=== PATIENT | female | born 1990 | race Two or more races ===

== ENCOUNTER 2021-08-03 05:02 | Emergency (ER) | payer MEDICAID, OTHER ==
[~2021-08-03] VITALS: Ht 167.6 cm; Wt 70.8 kg
[2021-08-03] MEDS ORDERED: HALOPERIDOL LACTATE 5 MG/ML INJ VIAL ONE (05:16)
[2021-08-03] MEDS ORDERED: diphenhdrAMINE HCL 50 MG/1 ML VL ONE (05:16)
[2021-08-03] MEDS ORDERED: LORazepam 2MG/ML-1ML VIAL ONE (05:17)
[2021-08-03] MEDS: LORazepam 2MG/ML-1ML VIAL IM ONE ×2 (05:20→06:03)
[2021-08-03] MEDS ORDERED: HALOPERIDOL LACTATE 5 MG/ML INJ VIAL IM ONE (06:00)
[2021-08-03] MEDS ORDERED: diphenhdrAMINE HCL 50 MG/1 ML VL IM ONE (06:00)
[2021-08-03] MEDS ORDERED: MIDAZOLAM HCL 2MG/2ML 2ml VIAL (1mg/ml) IV ONE (06:15)
[2021-08-03] MEDS ORDERED: LORazepam 2MG/ML-1ML VIAL IV ONE (06:15)
[2021-08-03 08:22] LABS: Basophils # (auto) 0.1 10 ^3/uL (0-0.2); Eosinophils # (auto) 0.1 10 ^3/uL (0-0.8); Hematocrit 31.9 % (36.0-46.0); Hemoglobin 10.2 g/dL (12.2-16.2); Lymphocytes # (auto) 2.2 10 ^3/uL (0.4-5.4); Lymphocytes % (auto) 29.1 % (10.0-50.0); Mean Corpuscular Hemoglobin 26.5 pg (28.0-32.0); Mean Corpuscular Hgb Conc. 31.8 g/dL (32.0-36.0); Mean Corpuscular Volume 83.2 fL (80.0-100.0); Monocytes # (auto) 0.4 10 ^3/uL (0-1.3); Monocytes % (auto) 5.7 % (0.0-12.0); Neutrophils # (auto) 4.7 10 ^3/uL (1.6-8.6); Neutrophils % (auto) 62.2 % (37.0-80.0); Red Blood Cells 3.84 10^6/uL (4.0-5.20); White Blood Cell 7.5 10^3/uL (4.4-10.8)
[2021-08-03 08:28] LABS: Albumin 3.7 g/dL (3.4-5.0); BUN/Creatinine Ratio 9.3; Calcium 8.7 mg/dL (8.5-10.1); Potassium 3.2 mmol/L (3.5-5.1)
[2021-08-03 08:30] LABS: Bilirubin, Total 0.5 mg/dL (0.2-1.0)
[2021-08-03] MEDS ORDERED: POTASSIUM EFFERVESENT TAB 25 MEQ PO ONE (14:45)
[2021-08-04 02:57] VITALS: BP 106/64
== END 2021-08-04 02:41 | disposition home or self-care (01) ==
LOC: ER 05:02
DX: F23 Brief psychotic disorder (principal)
CPT/HCPCS: 36415; 80053; 85025; 96372; 96374; 99285; J1200; J1630; J2060

== ENCOUNTER 2022-06-04 22:48 | Emergency (ER) | payer MEDICAID ==
[~2022-06-04] VITALS: Ht 165.1 cm; Wt 63.0 kg
[2022-06-04 23:55] LABS: Amphetamine Screen, Urine POSITIVE (NEGATIVE); Barbiturate Scree,Urine NEGATIVE (NEGATIVE); Cannabinoid Screen, Urine POSITIVE (NEGATIVE); Cocaine Screen, Urine NEGATIVE (NEGATIVE); Opiate Scree,Urine NEGATIVE (NEGATIVE); Phencyclidine Screen, Urine POSITIVE (NEGATIVE)
[2022-06-05 00:02] LABS: Basophils # (auto) 0 10 ^3/uL (0-0.2); Basophils % (auto) 0.6 % (0.0-2.0); Eosinophils # (auto) 0.1 10 ^3/uL (0-0.8); Eosinophils % (auto) 1.6 % (0.0-7.0); Hematocrit 39.1 % (36.0-46.0); Hemoglobin 12.4 g/dL (12.2-16.2); Lymphocytes % (auto) 46.7 % (10.0-50.0); Mean Corpuscular Hemoglobin 27.9 pg (28.0-32.0); Mean Corpuscular Hgb Conc. 31.8 g/dL (32.0-36.0); Monocytes # (auto) 0.5 10 ^3/uL (0-1.3); Neutrophils # (auto) 2.8 10 ^3/uL (1.6-8.6); Neutrophils % (auto) 43.1 % (37.0-80.0); Nucleated Red Blood Cells % 0.1 %; Red Blood Cells 4.44 10^6/uL (4.0-5.20); Red Cell Distribution Width 17.6 % (11.8-14.3); White Blood Cell 6.5 10^3/uL (4.4-10.8)
[2022-06-05 00:05] LABS: Acetaminophen < 2.0 ug/mL (10-30); Albumin 3.2 g/dL (3.4-5.0); BUN/Creatinine Ratio 16.7; Potassium 4.1 mmol/L (3.5-5.1); Salicylate < 1.7 mg/dL (2.8-20.0)
[2022-06-05 00:07] LABS: Bilirubin, Total 0.3 mg/dL (0.2-1.0); Total Protein 7.4 g/dL (6.4-8.2)
[2022-06-05 00:29] LABS: Urine Amorphous Crystal FEW /hpf (None Seen); Urine Bacteria FEW /hpf (None Seen); Urine Blood Negative /uL (Negative); Urine Mucus FEW (None Seen); Urine Specific Gravity 1.026 (1.001-1.035); Urine WBC 46 /hpf (0 - 5)
[2022-06-05 01:01] LABS: Benzodiazephine Screen, Urine NEGATIVE (NEGATIVE)
[2022-06-05 05:45] VITALS: BP 111/71
== END 2022-06-05 10:48 | disposition home or self-care (01) ==
LOC: EDBD 22:48 → ER 22:48 → EDUNIT# 22:48 → ER 06-05 10:48
DX: R45.851 Suicidal ideations (principal); Z20.822 Contact with and (suspected) exposure to COVID-19
CPT/HCPCS: 36415; 80053; 80307; 80329; 81001; 81003; 85025; 87426

== ENCOUNTER 2022-07-19 20:47 | Emergency (ER) | payer MEDICAID ==
[~2022-07-19] VITALS: Ht 165.1 cm; Wt 70.0 kg
[2022-07-19 23:20] LABS: Basophils # (auto) 0 10 ^3/uL (0-0.2); Basophils % (auto) 0.8 % (0.0-2.0); Eosinophils # (auto) 0.1 10 ^3/uL (0-0.8); Eosinophils % (auto) 1.8 % (0.0-7.0); Hematocrit 40.2 % (36.0-46.0); Hemoglobin 12.9 g/dL (12.2-16.2); Lymphocytes # (auto) 2.6 10 ^3/uL (0.4-5.4); Lymphocytes % (auto) 42.2 % (10.0-50.0); Mean Corpuscular Hemoglobin 28.8 pg (28.0-32.0); Mean Corpuscular Hgb Conc. 32.1 g/dL (32.0-36.0); Mean Corpuscular Volume 89.6 fL (80.0-100.0); Monocytes # (auto) 0.4 10 ^3/uL (0-1.3); Monocytes % (auto) 5.9 % (0.0-12.0); Neutrophils % (auto) 49.3 % (37.0-80.0); Nucleated Red Blood Cells % 0.1 %; Red Blood Cells 4.48 10^6/uL (4.0-5.20); Red Cell Distribution Width 17.8 % (11.8-14.3); White Blood Cell 6.1 10^3/uL (4.4-10.8)
[2022-07-19 23:40] LABS: Albumin 3.9 g/dL (3.4-5.0); BUN/Creatinine Ratio 14.9
[2022-07-19 23:42] LABS: Bilirubin, Total 0.4 mg/dL (0.2-1.0); Salicylate < 1.7 mg/dL (2.8-20.0); Total Protein 8.1 g/dL (6.4-8.2)
[2022-07-19 23:55] LABS: Acetaminophen < 2.0 ug/mL (10-30)
[2022-07-20] MEDS ORDERED: NALOXONE HCL 1MG/ML 2ML SYRINGE IV ONE (03:45)
[2022-07-20] MEDS ORDERED: SODIUM CHLORIDE 0.9% 1,000 ML IV ONE (03:45)
[2022-07-21] MEDS ORDERED: OLANZapine 5 MG TAB PO PRN (18:15)
[2022-07-22 17:12] LABS: Urine Bacteria NONE SEEN /hpf (None Seen); Urine Blood Negative /uL (Negative); Urine Budding Yeast MODERATE /hpf (None Seen); Urine Specific Gravity 1.019 (1.001-1.035); Urine WBC <1 /hpf (0 - 5)
[2022-07-22 18:16] LABS: Alcohol, Urine < 3.0 mg/dL (0-10); Amphetamine Screen, Urine NEGATIVE (NEGATIVE); Barbiturate Scree,Urine NEGATIVE (NEGATIVE); Benzodiazephine Screen, Urine NEGATIVE (NEGATIVE); Cannabinoid Screen, Urine NEGATIVE (NEGATIVE); Cocaine Screen, Urine NEGATIVE (NEGATIVE); Opiate Scree,Urine NEGATIVE (NEGATIVE); Phencyclidine Screen, Urine NEGATIVE (NEGATIVE)
[2022-07-22 19:30] VITALS: BP 126/68
== END 2022-07-22 19:56 | disposition short-term general hospital (02) ==
LOC: EDBD 20:47 → ER 20:47
DX: R45.851 Suicidal ideations (principal); F41.9 Anxiety disorder, unspecified; R10.2 Pelvic and perineal pain; F32.9 Major depressive disorder, single episode, unspecified; F15.10 Other stimulant abuse, uncomplicated; Z20.822 Contact with and (suspected) exposure to COVID-19
CPT/HCPCS: 36415; 80053; 80307; 80320; 80329; 81001; 82553; 83605; 84484; 84702; 85025; 87426; 93005; 96361; 96374; 99285; J2310; J7030

== ENCOUNTER 2022-10-01 06:03 | Emergency (ER) | payer MEDICAID, OTHER ==
[~2022-10-01] VITALS: Ht 162.6 cm; Wt 77.0 kg
[2022-10-01 07:50] VITALS: BP 103/71
[2022-10-01] MEDS ORDERED: LORazepam 0.5 MG TAB PO ONE (14:30)
== END 2022-10-01 16:15 | disposition left against medical advice (07) ==
LOC: ER 06:03 → EDUNIT# 06:03 → EDBD 06:03 → ER 16:15
DX: R41.82 Altered mental status, unspecified (principal); F32.9 Major depressive disorder, single episode, unspecified; F41.9 Anxiety disorder, unspecified; F15.10 Other stimulant abuse, uncomplicated; F20.9 Schizophrenia, unspecified; F39 Unspecified mood [affective] disorder; R10.2 Pelvic and perineal pain
CPT/HCPCS: 36415; 84702

== ENCOUNTER 2022-11-06 13:04 | Emergency (ER) | payer MEDICAID, OTHER ==
[~2022-11-06] VITALS: Ht 162.6 cm; Wt 50.0 kg
[2022-11-06 13:10] VITALS: BP 112/74
[2022-11-06 14:26] LABS: Basophils # (auto) 0 10 ^3/uL (0-0.2); Basophils % (auto) 0.6 % (0.0-2.0); Eosinophils # (auto) 0.1 10 ^3/uL (0-0.8); Eosinophils % (auto) 2.1 % (0.0-7.0); Hematocrit 39.6 % (36.0-46.0); Hemoglobin 12.7 g/dL (12.2-16.2); Lymphocytes # (auto) 2.6 10 ^3/uL (0.4-5.4); Lymphocytes % (auto) 39.6 % (10.0-50.0); Mean Corpuscular Hemoglobin 28.9 pg (28.0-32.0); Mean Corpuscular Hgb Conc. 32.2 g/dL (32.0-36.0); Mean Corpuscular Volume 89.8 fL (80.0-100.0); Monocytes # (auto) 0.6 10 ^3/uL (0-1.3); Monocytes % (auto) 9.3 % (0.0-12.0); Neutrophils # (auto) 3.1 10 ^3/uL (1.6-8.6); Neutrophils % (auto) 48.4 % (37.0-80.0); Nucleated Red Blood Cells % 0.1 %; Red Blood Cells 4.41 10^6/uL (4.0-5.20); Red Cell Distribution Width 16.3 % (11.8-14.3); White Blood Cell 6.5 10^3/uL (4.4-10.8)
[2022-11-06 14:59] LABS: Albumin 3.8 g/dL (3.4-5.0); Anion Gap 5 (5-15); Blood Alcohol < 3.0 mg/dL (0-5); Blood Urea Nitrogen 12 mg/dL (7-18); Calcium 8.8 mg/dL (8.5-10.1); Carbon Dioxide 26 mmol/L (21-32); Chloride 107 mmol/L (98-107); Glucose 66 mg/dL (74-106); Potassium 4.4 mmol/L (3.5-5.1); Sodium 138 mmol/L (136-145)
[2022-11-06 15:00] LABS: Salicylate < 1.7 mg/dL (2.8-20.0)
[2022-11-06 15:03] LABS: Alanine Aminotransferase 28 U/L (13-56); Alkaline Phosphatase 66 U/L (45-117); Aspartate Aminotransferase 24 U/L (15-37); BUN/Creatinine Ratio 14.3 (10.0-20.0); Bilirubin, Total 0.4 mg/dL (0.2-1.0); GFR African American 102 mL/min; GFR Non-African American 85 mL/min; Total Protein 7.9 g/dL (6.4-8.2)
[2022-11-06 15:20] LABS: Acetaminophen < 2.0 ug/mL (10-30)
== END 2022-11-07 07:19 | disposition left against medical advice (07) ==
LOC: EDUNIT# 13:04 → ER 13:04 → EDBD 13:04 → ER 17:05
DX: R41.82 Altered mental status, unspecified (principal); R45.851 Suicidal ideations; F20.9 Schizophrenia, unspecified; F41.9 Anxiety disorder, unspecified; F32.9 Major depressive disorder, single episode, unspecified; F17.210 Nicotine dependence, cigarettes, uncomplicated; F12.10 Cannabis abuse, uncomplicated; F10.20 Alcohol dependence, uncomplicated; Y90.9 Presence of alcohol in blood, level not specified
CPT/HCPCS: 36415; 80053; 80320; 80329; 85025

== ENCOUNTER 2023-04-29 01:34 | Emergency (ER) | payer MEDICAID ==
[~2023-04-29] VITALS: Ht 167.6 cm; Wt 69.1 kg
[~2023-04-29 01:34] MED LIST: OLAN1TAB7 PO
[2023-04-29 03:11] LABS: Basophils # (auto) 0.1 10 ^3/uL (0-0.2); Basophils % (auto) 0.8 % (0.0-2.0); Eosinophils # (auto) 0.1 10 ^3/uL (0-0.8); Eosinophils % (auto) 1.4 % (0.0-7.0); Hematocrit 35.3 % (36.0-46.0); Hemoglobin 11.9 g/dL (12.2-16.2); Lymphocytes # (auto) 2.5 10 ^3/uL (0.4-5.4); Lymphocytes % (auto) 32.8 % (10.0-50.0); Mean Corpuscular Hemoglobin 31.2 pg (28.0-32.0); Mean Corpuscular Hgb Conc. 33.7 g/dL (32.0-36.0); Mean Corpuscular Volume 92.3 fL (80.0-100.0); Monocytes # (auto) 0.7 10 ^3/uL (0-1.3); Monocytes % (auto) 8.9 % (0.0-12.0); Neutrophils # (auto) 4.2 10 ^3/uL (1.6-8.6); Neutrophils % (auto) 56.1 % (37.0-80.0); Nucleated Red Blood Cells % 0.1 %; Red Blood Cells 3.82 10^6/uL (4.0-5.20); Red Cell Distribution Width 15.5 % (11.8-14.3); White Blood Cell 7.5 10^3/uL (4.4-10.8)
[2023-04-29 03:25] LABS: INR 1.05 (0.9-1.15); Partial Thromboplastin Time 31.2 SEC (24.5-34.5)
[2023-04-29 03:30] LABS: Alanine Aminotransferase 12 U/L (7-40); Albumin 4.7 g/dL (3.2-4.8); Alkaline Phosphatase 59 U/L (46-116); Anion Gap 9 (5-15); Aspartate Aminotransferase 18 U/L (13-40); BUN/Creatinine Ratio 11.5 (10.0-20.0); Bilirubin, Total 0.5 mg/dL (0.2-1.0); Blood Urea Nitrogen 11 mg/dL (9-23); Calcium 9.6 mg/dL (8.7-10.4); Carbon Dioxide 27 mmol/L (20-30); Chloride 102 mmol/L (98-107); Glucose 90 mg/dL (74-106); Magnesium 1.8 mg/dL (1.6-2.6); Potassium 3.7 mmol/L (3.5-5.1); Sodium 138 mmol/L (136-145); Total Protein 7.8 g/dL (5.7-8.2)
[2023-04-29 07:26] VITALS: BP 114/84; PULSE 89; RESP 17; TEMP 97.7; O2SAT 100
== END 2023-04-29 07:28 | disposition home or self-care (01) ==
LOC: ER 01:34 → EDBD 01:34 → ER 07:28
DX: F20.9 Schizophrenia, unspecified (principal); F22 Delusional disorders; F31.9 Bipolar disorder, unspecified; F17.210 Nicotine dependence, cigarettes, uncomplicated; F15.10 Other stimulant abuse, uncomplicated; Z59.00 Homelessness unspecified
CPT/HCPCS: 36415; 71045; 80053; 83735; 83880; 84484; 85025; 85610; 85730; 93005

== ENCOUNTER 2023-05-06 21:18 | Emergency (ER) | payer MEDICAID ==
[~2023-05-06] VITALS: Ht 167.6 cm; Wt 73.8 kg
[2023-05-06 23:17] LABS: Basophils # (auto) 0.1 10 ^3/uL (0-0.2); Eosinophils # (auto) 0.2 10 ^3/uL (0-0.8); Eosinophils % (auto) 3.3 % (0.0-7.0); Hematocrit 32.5 % (36.0-46.0); Hemoglobin 10.8 g/dL (12.2-16.2); Lymphocytes # (auto) 3.4 10 ^3/uL (0.4-5.4); Lymphocytes % (auto) 49.3 % (10.0-50.0); Mean Corpuscular Hemoglobin 30.6 pg (28.0-32.0); Mean Corpuscular Hgb Conc. 33.2 g/dL (32.0-36.0); Mean Corpuscular Volume 92.3 fL (80.0-100.0); Monocytes # (auto) 0.6 10 ^3/uL (0-1.3); Monocytes % (auto) 8.6 % (0.0-12.0); Neutrophils # (auto) 2.6 10 ^3/uL (1.6-8.6); Neutrophils % (auto) 37.8 % (37.0-80.0); Nucleated Red Blood Cells % 0.1 %; Red Blood Cells 3.52 10^6/uL (4.0-5.20); Red Cell Distribution Width 14.9 % (11.8-14.3)
[2023-05-06 23:34] LABS: Acetaminophen < 2.0 UG/ML (10.0-20.0); Alanine Aminotransferase 14 U/L (7-40); Alkaline Phosphatase 65 U/L (46-116); Anion Gap 5 (5-15); Aspartate Aminotransferase 17 U/L (13-40); BUN/Creatinine Ratio 13.2 (10.0-20.0); Bilirubin, Total 0.2 mg/dL (0.2-1.0); Blood Alcohol < 3.0 mg/dL (<10); Blood Urea Nitrogen 10 mg/dL (9-23); Carbon Dioxide 27 mmol/L (20-30); Chloride 110 mmol/L (98-107); Glucose 79 mg/dL (74-106); Potassium 3.7 mmol/L (3.5-5.1); Sodium 142 mmol/L (136-145); Total Protein 6.7 g/dL (5.7-8.2)
[2023-05-06 23:42] LABS: Calcium 8.3 mg/dL (8.7-10.4)
[2023-05-06 23:44] LABS: Salicylate < 3.0 mg/dL (2.8-20.0)
[2023-05-07 00:09] LABS: Amphetamine Screen, Urine Pos (NEGATIVE); Barbiturate Scree,Urine Neg (NEGATIVE); Benzodiazephine Screen, Urine Neg (NEGATIVE); Cannabinoid Screen, Urine Neg (NEGATIVE); Cocaine Screen, Urine Neg (NEGATIVE); Opiate Scree,Urine Neg (NEGATIVE); Phencyclidine Screen, Urine Neg (NEGATIVE)
[2023-05-07 00:23] LABS: Urine Bacteria NONE SEEN /hpf (None Seen); Urine Blood 3+ /uL (Negative); Urine Clarity Clear (Clear); Urine Color Yellow (Yellow); Urine Protein, UAD TRACE (Negative); Urine Specific Gravity 1.022 (1.001-1.035); Urine Urobilinogen Normal (Negative); Urine WBC 4 /hpf (0 - 5); Urine pH 7.5 (5.0-8.0)
[2023-05-07 08:00] VITALS: BP 108/68; PULSE 76; RESP 14; TEMP 97.8; O2SAT 99
== END 2023-05-07 11:29 | disposition left against medical advice (07) ==
LOC: ER 21:18
DX: F20.9 Schizophrenia, unspecified (principal); F31.9 Bipolar disorder, unspecified; F15.10 Other stimulant abuse, uncomplicated; R45.851 Suicidal ideations; F41.9 Anxiety disorder, unspecified; F17.210 Nicotine dependence, cigarettes, uncomplicated; Z59.00 Homelessness unspecified
CPT/HCPCS: 36415; 80053; 80307; 80320; 80329; 81001; 81025; 85025

== ENCOUNTER → 2023-05-07 | Emergency (ER) | payer MEDICAID ==
[~2023-05-07] VITALS: Ht 170.2 cm; Wt 73.0 kg
[2023-05-08 02:22] LABS: Basophils # (auto) 0.1 10 ^3/uL (0-0.2); Basophils % (auto) 0.8 % (0.0-2.0); Eosinophils # (auto) 0.2 10 ^3/uL (0-0.8); Eosinophils % (auto) 2.5 % (0.0-7.0); Hematocrit 33.5 % (36.0-46.0); Lymphocytes # (auto) 2.9 10 ^3/uL (0.4-5.4); Lymphocytes % (auto) 41.6 % (10.0-50.0); Mean Corpuscular Hemoglobin 30.3 pg (28.0-32.0); Mean Corpuscular Hgb Conc. 32.7 g/dL (32.0-36.0); Mean Corpuscular Volume 92.5 fL (80.0-100.0); Monocytes # (auto) 0.6 10 ^3/uL (0-1.3); Monocytes % (auto) 8.3 % (0.0-12.0); Neutrophils # (auto) 3.3 10 ^3/uL (1.6-8.6); Neutrophils % (auto) 46.8 % (37.0-80.0); Red Blood Cells 3.62 10^6/uL (4.0-5.20); Red Cell Distribution Width 15.3 % (11.8-14.3)
[2023-05-08 02:49] LABS: Alanine Aminotransferase 19 U/L (7-40); Albumin 4.2 g/dL (3.2-4.8); Alkaline Phosphatase 61 U/L (46-116); Anion Gap 7 (5-15); Aspartate Aminotransferase 22 U/L (13-40); BUN/Creatinine Ratio 9.6 (10.0-20.0); Blood Alcohol 6.8 mg/dL (<10); Blood Urea Nitrogen 7 mg/dL (9-23); Calcium 8.7 mg/dL (8.7-10.4); Carbon Dioxide 25 mmol/L (20-30); Chloride 109 mmol/L (98-107); Glucose 91 mg/dL (74-106); Magnesium 1.9 mg/dL (1.6-2.6); Potassium 3.4 mmol/L (3.5-5.1); Sodium 141 mmol/L (136-145)
[2023-05-08 02:50] LABS: Acetaminophen < 2.0 UG/ML (10.0-20.0); Bilirubin, Total 0.3 mg/dL (0.2-1.0); Total Protein 6.9 g/dL (5.7-8.2)
[2023-05-08 02:52] LABS: Thyroid Stimulating Hormone 2.31 uIU/mL (0.358-3.74)
[2023-05-08 02:58] LABS: Beta HCG, Quantitative 0.5 mIU/mL (1.5-4.2); Salicylate < 3.0 mg/dL (2.8-20.0)
[2023-05-08 05:43] VITALS: BP 151/104; PULSE 74; RESP 16; O2SAT 96
== END | disposition left against medical advice (07) ==
LOC: EDUNIT# 22:31 → EDBD 22:46 → ER 22:46
DX: F15.10 Other stimulant abuse, uncomplicated (principal); R10.2 Pelvic and perineal pain; F20.9 Schizophrenia, unspecified; F17.210 Nicotine dependence, cigarettes, uncomplicated; F12.10 Cannabis abuse, uncomplicated; F14.10 Cocaine abuse, uncomplicated; Z59.00 Homelessness unspecified
CPT/HCPCS: 36415; 80053; 80320; 80329; 83735; 84443; 84702; 85025

== ENCOUNTER 2023-05-11 17:37 | Emergency (ER) | payer MEDICAID ==
[~2023-05-11] VITALS: Ht 172.7 cm; Wt 82.0 kg
[2023-05-11 18:48] LABS: Basophils # (auto) 0.1 10 ^3/uL (0-0.2); Basophils % (auto) 0.9 % (0.0-2.0); Eosinophils # (auto) 0.1 10 ^3/uL (0-0.8); Eosinophils % (auto) 1.7 % (0.0-7.0); Hematocrit 36.9 % (36.0-46.0); Hemoglobin 12.1 g/dL (12.2-16.2); Lymphocytes # (auto) 2.2 10 ^3/uL (0.4-5.4); Lymphocytes % (auto) 38.4 % (10.0-50.0); Mean Corpuscular Hgb Conc. 32.8 g/dL (32.0-36.0); Mean Corpuscular Volume 91.5 fL (80.0-100.0); Monocytes # (auto) 0.4 10 ^3/uL (0-1.3); Neutrophils # (auto) 2.9 10 ^3/uL (1.6-8.6); Nucleated Red Blood Cells % 0.1 %; Red Blood Cells 4.03 10^6/uL (4.0-5.20); Red Cell Distribution Width 15.4 % (11.8-14.3); White Blood Cell 5.7 10^3/uL (4.4-10.8)
[2023-05-11 18:51] LABS: Amphetamine Screen, Urine Pos (NEGATIVE); Barbiturate Scree,Urine Neg (NEGATIVE); Benzodiazephine Screen, Urine Neg (NEGATIVE); Cannabinoid Screen, Urine Neg (NEGATIVE); Cocaine Screen, Urine Neg (NEGATIVE); Opiate Scree,Urine Neg (NEGATIVE); Phencyclidine Screen, Urine Neg (NEGATIVE)
[2023-05-11 18:53] LABS: Urine Bacteria NONE SEEN /hpf (None Seen); Urine Blood Negative /uL (Negative); Urine Clarity Clear (Clear); Urine Color Colorless (Yellow); Urine Protein, UAD Negative (Negative); Urine Specific Gravity 1.019 (1.001-1.035); Urine Urobilinogen Normal (Negative); Urine WBC <1 /hpf (0 - 5)
[2023-05-11 18:58] LABS: Alanine Aminotransferase 18 U/L (7-40); Albumin 4.7 g/dL (3.2-4.8); Alkaline Phosphatase 65 U/L (46-116); Anion Gap 4 (5-15); Aspartate Aminotransferase 16 U/L (13-40); BUN/Creatinine Ratio 13.3 (10.0-20.0); Bilirubin, Total 0.3 mg/dL (0.2-1.0); Blood Urea Nitrogen 12 mg/dL (9-23); Calcium 9.1 mg/dL (8.7-10.4); Carbon Dioxide 29 mmol/L (20-30); Chloride 105 mmol/L (98-107); Glucose 92 mg/dL (74-106); Potassium 4.4 mmol/L (3.5-5.1); Sodium 138 mmol/L (136-145); Total Protein 7.7 g/dL (5.7-8.2)
[2023-05-11 19:05] LABS: Salicylate < 3.0 mg/dL (2.8-20.0)
[2023-05-11 20:39] LABS: Acetaminophen < 2.0 UG/ML (10.0-20.0)
[2023-05-12] MEDS ORDERED: LORazepam 0.5 MG TAB PO ONE (00:30)
[2023-05-12] MEDS ORDERED: OLANZapine 5 MG TAB PO ONE (00:30)
[2023-05-12 02:30] VITALS: PULSE 95; RESP 18; O2SAT 96
[2023-05-12 02:39] VITALS: BP 135/75; PULSE 95; RESP 18; TEMP 98.2; O2SAT 97
== END 2023-05-12 03:54 | disposition home or self-care (01) ==
LOC: ER 17:37
DX: F29 Unspecified psychosis not due to a substance or known physiological condition (principal); F15.10 Other stimulant abuse, uncomplicated; F12.10 Cannabis abuse, uncomplicated; F14.10 Cocaine abuse, uncomplicated; F17.210 Nicotine dependence, cigarettes, uncomplicated; Z59.00 Homelessness unspecified; Z79.899 Other long term (current) drug therapy
CPT/HCPCS: 36415; 80053; 80307; 80329; 81001; 81025; 85025

== ENCOUNTER 2023-08-16 20:24 | Emergency (ER) | payer MEDICAID, OTHER ==
[~2023-08-16] VITALS: Ht 162.6 cm; Wt 72.0 kg
[2023-08-16 20:42] VITALS: BP 134/86; RESP 16
[2023-08-16 21:29] VITALS: PULSE 92; O2SAT 98
[2023-08-16 22:13] LABS: Basophils # (auto) 0.1 10 ^3/uL (0-0.2); Basophils % (auto) 0.9 % (0.0-2.0); Eosinophils # (auto) 0 10 ^3/uL (0-0.8); Eosinophils % (auto) 0.6 % (0.0-7.0); Hematocrit 39.7 % (36.0-46.0); Hemoglobin 12.9 g/dL (12.2-16.2); Lymphocytes # (auto) 2.6 10 ^3/uL (0.4-5.4); Lymphocytes % (auto) 34.6 % (10.0-50.0); Mean Corpuscular Hemoglobin 29.7 pg (28.0-32.0); Mean Corpuscular Hgb Conc. 32.5 g/dL (32.0-36.0); Mean Corpuscular Volume 91.2 fL (80.0-100.0); Monocytes # (auto) 0.5 10 ^3/uL (0-1.3); Monocytes % (auto) 6.1 % (0.0-12.0); Neutrophils # (auto) 4.3 10 ^3/uL (1.6-8.6); Neutrophils % (auto) 57.8 % (37.0-80.0); Nucleated Red Blood Cells % 0.1 %; Red Blood Cells 4.36 10^6/uL (4.0-5.20); Red Cell Distribution Width 16.9 % (11.8-14.3); White Blood Cell 7.4 10^3/uL (4.4-10.8)
[2023-08-16 22:16] LABS: Chloride 104 mmol/L (98-107); Potassium 3.8 mmol/L (3.5-5.1); Sodium 138 mmol/L (136-145)
[2023-08-16 22:17] LABS: Anion Gap 9 (5-15); Carbon Dioxide 25 mmol/L (20-30)
[2023-08-16 22:18] LABS: Calcium 10.1 mg/dL (8.5-10.1)
[2023-08-16 22:22] LABS: Blood Urea Nitrogen 11 mg/dL (9-23); Glucose 83 mg/dL (74-106)
[2023-08-16 22:23] LABS: Blood Alcohol < 3.0 mg/dL (<10)
[2023-08-16 22:25] LABS: Acetaminophen < 2.0 UG/ML (10.0-20.0)
[2023-08-16 22:31] LABS: Salicylate < 3.0 mg/dL (2.8-20.0)
[2023-08-16] MEDS: OLANZapine 5 MG TAB PO ONE (23:25)
[2023-08-17] MEDS: LORazepam 2MG/ML-1ML VIAL IM ONE (00:56)
[2023-08-17] MEDS: LORazepam 2MG/ML-1ML VIAL ONE (00:57)
== END 2023-08-17 04:43 | disposition left against medical advice (07) ==
LOC: ER 20:24
DX: R45.851 Suicidal ideations (principal); R10.2 Pelvic and perineal pain; G93.40 Encephalopathy, unspecified; F32.9 Major depressive disorder, single episode, unspecified; F41.9 Anxiety disorder, unspecified; F17.210 Nicotine dependence, cigarettes, uncomplicated; F12.10 Cannabis abuse, uncomplicated; F15.10 Other stimulant abuse, uncomplicated; F14.10 Cocaine abuse, uncomplicated; Z59.00 Homelessness unspecified
CPT/HCPCS: 36415; 80048; 80320; 80329; 84702; 85025; 96372; 99285; J2060

== ENCOUNTER 2023-08-20 12:35 | Emergency (ER) | payer MEDICAID, OTHER ==
[~2023-08-20] VITALS: Ht 167.6 cm; Wt 75.0 kg
[2023-08-20 15:09] VITALS: BP 122/81; PULSE 80; RESP 16; TEMP 98.1; O2SAT 99
[2023-08-20] MEDS ORDERED: AUG875T PO (15:48)
[2023-08-20] MEDS ORDERED: BENZ100C97 PO (15:48)
[2023-08-21] MEDS ORDERED: NAPR-746 PO (08:13)
[2023-08-21] MEDS ORDERED: CLIN300C70 PO (08:13)
== END 2023-08-20 15:53 | disposition home or self-care (01) ==
LOC: EDBD 12:35 → ER 12:35
DX: R05.9 Cough, unspecified (principal); R07.89 Other chest pain; F17.210 Nicotine dependence, cigarettes, uncomplicated; Z59.00 Homelessness unspecified
CPT/HCPCS: 93005

== ENCOUNTER 2023-08-20 18:16 | Emergency (ER) | payer MEDICAID ==
[~2023-08-20] VITALS: Ht 170.2 cm; Wt 73.9 kg
[~2023-08-20 18:16] MED LIST changes: +AUG875T PO; +BENZ100C97 PO
[2023-08-20 21:20] VITALS: BP 110/78; PULSE 86; RESP 18; TEMP 97.8; O2SAT 95
[2023-08-21] MEDS ORDERED: NAPR-746 PO (08:13)
[2023-08-21] MEDS ORDERED: CLIN300C70 PO (08:13)
== END 2023-08-20 21:19 | disposition home or self-care (01) ==
LOC: ER 18:16
DX: R07.89 Other chest pain (principal); F20.9 Schizophrenia, unspecified; F17.210 Nicotine dependence, cigarettes, uncomplicated; Z59.00 Homelessness unspecified; Z79.2 Long term (current) use of antibiotics; Z79.899 Other long term (current) drug therapy

== ENCOUNTER 2023-08-21 07:00 | Emergency (ER) | payer MEDICAID ==
[~2023-08-21] VITALS: Ht 167.6 cm; Wt 75.0 kg
[2023-08-21 08:12] VITALS: BP 134/86; PULSE 86; RESP 18; TEMP 97.8; O2SAT 98
[2023-08-21] MEDS ORDERED: NAPR-746 PO (08:13)
[2023-08-21] MEDS ORDERED: CLIN300C70 PO (08:13)
[2023-08-21] MEDS: HYDROcodone-ACET 5/325MG TAB PO ONE (08:18)
== END 2023-08-21 08:20 | disposition home or self-care (01) ==
LOC: ER 07:00
DX: K04.7 Periapical abscess without sinus (principal); F17.210 Nicotine dependence, cigarettes, uncomplicated; Z59.00 Homelessness unspecified; Z79.2 Long term (current) use of antibiotics; Z79.899 Other long term (current) drug therapy

== ENCOUNTER 2023-08-21 18:30 | Emergency (ER) | payer MEDICAID ==
[~2023-08-21] VITALS: Ht 172.7 cm; Wt 68.2 kg
[~2023-08-21 18:30] MED LIST changes: +CLIN300C70 PO; +NAPR-746 PO
[2023-08-21 18:48] VITALS: BP 122/72; PULSE 86; RESP 16; O2SAT 98
== END 2023-08-21 19:46 | disposition home or self-care (01) ==
LOC: ER 18:30 → EDBD 18:30 → EDUNIT# 18:30 → ER 19:46
DX: R07.89 Other chest pain (principal); F15.10 Other stimulant abuse, uncomplicated; F17.210 Nicotine dependence, cigarettes, uncomplicated; Z59.00 Homelessness unspecified; Z79.2 Long term (current) use of antibiotics; Z79.899 Other long term (current) drug therapy
CPT/HCPCS: 93005

== ENCOUNTER 2023-09-23 04:21 | Emergency (ER) | payer MEDICAID ==
[~2023-09-23] VITALS: Ht 167.6 cm; Wt 76.5 kg
[~2023-09-23 04:21] MED LIST changes: +CLIN1CAP70 PO; -CLIN300C70 PO
[2023-09-23 07:33] LABS: Acetaminophen < 2.0 UG/ML (10.0-20.0)
[2023-09-23 07:34] LABS: Salicylate < 3.0 mg/dL (2.8-20.0)
[2023-09-23 20:21] VITALS: PULSE 74; RESP 14; O2SAT 97
[2023-09-24 08:00] VITALS: BP 110/74; PULSE 68; RESP 12; TEMP 98.8; O2SAT 98
== END 2023-09-24 17:59 | disposition home or self-care (01) ==
LOC: ER 04:21
DX: R45.851 Suicidal ideations (principal); F15.10 Other stimulant abuse, uncomplicated; F14.10 Cocaine abuse, uncomplicated; F17.210 Nicotine dependence, cigarettes, uncomplicated; F12.10 Cannabis abuse, uncomplicated; F41.9 Anxiety disorder, unspecified; F32.9 Major depressive disorder, single episode, unspecified; F20.9 Schizophrenia, unspecified
CPT/HCPCS: 36415; 80320; 80329

== ENCOUNTER 2023-10-20 03:32 | Emergency (ER) | payer MEDICAID ==
[~2023-10-20] VITALS: Ht 167.6 cm; Wt 70.0 kg
[2023-10-20 03:59] VITALS: TEMP 98
[2023-10-20 04:15] LABS: Basophils # (auto) 0 10 ^3/uL (0-0.2); Basophils % (auto) 0.6 % (0.0-2.0); Eosinophils # (auto) 0.1 10 ^3/uL (0-0.8); Hematocrit 39.5 % (36.0-46.0); Lymphocytes # (auto) 3.3 10 ^3/uL (0.4-5.4); Lymphocytes % (auto) 40.5 % (10.0-50.0); Mean Corpuscular Hemoglobin 30.9 pg (28.0-32.0); Mean Corpuscular Hgb Conc. 32.9 g/dL (32.0-36.0); Mean Corpuscular Volume 93.9 fL (80.0-100.0); Monocytes # (auto) 0.6 10 ^3/uL (0-1.3); Monocytes % (auto) 7.4 % (0.0-12.0); Neutrophils # (auto) 4.1 10 ^3/uL (1.6-8.6); Neutrophils % (auto) 50.5 % (37.0-80.0); Nucleated Red Blood Cells % 0.1 %; Red Blood Cells 4.21 10^6/uL (4.0-5.20); Red Cell Distribution Width 15.6 % (11.8-14.3); White Blood Cell 8.2 10^3/uL (4.4-10.8)
[2023-10-20 04:39] LABS: Alanine Aminotransferase 11 U/L (7-40); Albumin 4.5 g/dL (3.2-4.8); Alkaline Phosphatase 56 U/L (46-116); Anion Gap 6 (5-15); Aspartate Aminotransferase 13 U/L (13-40); BUN/Creatinine Ratio 10.8 (10.0-20.0); Blood Urea Nitrogen 9 mg/dL (9-23); Calcium 9.8 mg/dL (8.7-10.4); Carbon Dioxide 25 mmol/L (20-30); Chloride 107 mmol/L (98-107); Glucose 84 mg/dL (74-106); Potassium 3.5 mmol/L (3.5-5.1); Sodium 138 mmol/L (136-145)
[2023-10-20 04:40] LABS: Bilirubin, Total 0.5 mg/dL (0.2-1.0); Total Protein 7.6 g/dL (5.7-8.2)
[2023-10-20 04:41] LABS: Salicylate < 3.0 mg/dL (2.8-20.0)
[2023-10-20 04:43] VITALS: BP 137/76; PULSE 88; RESP 18; O2SAT 99
[2023-10-20 04:55] LABS: Acetaminophen < 2.0 UG/ML (10.0-20.0)
[2023-10-20 06:08] LABS: Blood Alcohol < 3.0 mg/dL (<10)
== END 2023-10-20 06:13 | disposition home or self-care (01) ==
LOC: EDBD 03:32 → ER 03:32
DX: G93.41 Metabolic encephalopathy (principal); F15.10 Other stimulant abuse, uncomplicated
CPT/HCPCS: 36415; 80053; 80320; 80329; 83880; 84484; 85025

== ENCOUNTER 2023-11-27 00:43 | Emergency (ER) | payer MEDICAID ==
[~2023-11-27] VITALS: Ht 175.3 cm; Wt 81.0 kg
[2023-11-27 00:43] VITALS: PULSE 79; RESP 16; O2SAT 96
== END 2023-11-27 05:24 | disposition left against medical advice (07) ==
LOC: ER 00:43 → EDBD 00:43 → ER 05:24
DX: F15.10 Other stimulant abuse, uncomplicated (principal); F20.9 Schizophrenia, unspecified; F41.9 Anxiety disorder, unspecified; F32.A Depression, unspecified; F17.210 Nicotine dependence, cigarettes, uncomplicated; F12.10 Cannabis abuse, uncomplicated; Z59.00 Homelessness unspecified; Z79.899 Other long term (current) drug therapy

== ENCOUNTER 2023-11-27 09:15 | Emergency (ER) | payer MEDICAID ==
[~2023-11-27] VITALS: Ht 167.6 cm; Wt 74.4 kg
[2023-11-27 09:25] VITALS: BP 126/93; PULSE 88; RESP 18; O2SAT 99
== END 2023-11-27 10:58 | disposition left against medical advice (07) ==
LOC: ER 09:15
DX: R05.9 Cough, unspecified (principal); Z76.0 Encounter for issue of repeat prescription; Z53.21 Procedure and treatment not carried out due to patient leaving prior to being seen by health care provider

== ENCOUNTER 2023-12-19 22:23 | Emergency (ER) | payer MEDICAID ==
[~2023-12-19] VITALS: Ht 165.1 cm; Wt 60.0 kg
[2023-12-19 23:36] LABS: Basophils # (auto) 0 10 ^3/uL (0-0.2); Basophils % (auto) 0.6 % (0.0-2.0); Eosinophils # (auto) 0.2 10 ^3/uL (0-0.8); Eosinophils % (auto) 2.1 % (0.0-7.0); Hematocrit 34.6 % (36.0-46.0); Hemoglobin 11.5 g/dL (12.2-16.2); Lymphocytes # (auto) 3.4 10 ^3/uL (0.4-5.4); Lymphocytes % (auto) 44.5 % (10.0-50.0); Mean Corpuscular Hemoglobin 31.1 pg (28.0-32.0); Mean Corpuscular Hgb Conc. 33.3 g/dL (32.0-36.0); Mean Corpuscular Volume 93.5 fL (80.0-100.0); Monocytes # (auto) 0.6 10 ^3/uL (0-1.3); Monocytes % (auto) 8.4 % (0.0-12.0); Neutrophils # (auto) 3.4 10 ^3/uL (1.6-8.6); Neutrophils % (auto) 44.4 % (37.0-80.0); Red Blood Cells 3.69 10^6/uL (4.0-5.20); White Blood Cell 7.6 10^3/uL (4.4-10.8)
[2023-12-19 23:54] LABS: Acetaminophen < 2.0 UG/ML (10.0-20.0); Alanine Aminotransferase 11 U/L (7-40); Albumin 4.2 g/dL (3.2-4.8); Alkaline Phosphatase 57 U/L (46-116); Anion Gap 5 (5-15); Aspartate Aminotransferase 10 U/L (13-40); BUN/Creatinine Ratio 17.7 (10.0-20.0); Blood Alcohol 3.3 mg/dL (<10); Blood Urea Nitrogen 14 mg/dL (9-23); Calcium 9.2 mg/dL (8.5-10.1); Carbon Dioxide 26 mmol/L (20-30); Chloride 109 mmol/L (98-107); Glucose 100 mg/dL (74-106); Potassium 3.5 mmol/L (3.5-5.1); Sodium 140 mmol/L (136-145)
[2023-12-19 23:55] LABS: Bilirubin, Total 0.4 mg/dL (0.2-1.0); Salicylate < 3.0 mg/dL (2.8-20.0); Total Protein 6.7 g/dL (5.7-8.2)
[2023-12-20] MEDS: LORazepam 2MG/ML-1ML VIAL IM ONE (01:16)
[2023-12-20] MEDS: LORazepam 2MG/ML-1ML VIAL ONE (01:16)
[2023-12-20 15:15] VITALS: BP 108/71; PULSE 76; RESP 16; TEMP 98.5; O2SAT 99
[2023-12-21] MEDS ORDERED: MET075VC VG (09:57)
== END 2023-12-20 16:30 | disposition left against medical advice (07) ==
LOC: ER 22:23 → EDUNIT# 22:23 → EDBD 22:23 → ER 12-20 16:30
DX: R45.851 Suicidal ideations (principal); R10.2 Pelvic and perineal pain; F41.9 Anxiety disorder, unspecified; F32.9 Major depressive disorder, single episode, unspecified; F20.9 Schizophrenia, unspecified; F17.210 Nicotine dependence, cigarettes, uncomplicated; F15.90 Other stimulant use, unspecified, uncomplicated; Z59.00 Homelessness unspecified
CPT/HCPCS: 36415; 80053; 80320; 80329; 84702; 85025; 96372; 99285; J2060

== ENCOUNTER 2023-12-20 18:46 | Emergency (ER) | payer MEDICAID ==
[~2023-12-20] VITALS: Ht 167.6 cm; Wt 68.0 kg
[2023-12-20 18:50] VITALS: BP 114/64; PULSE 97; RESP 20; O2SAT 99
[2023-12-21] MEDS ORDERED: MET075VC VG (09:57)
== END 2023-12-21 02:28 | disposition left against medical advice (07) ==
LOC: ER 18:46 → EDBD 18:46 → ER 23:44
DX: R46.89 Other symptoms and signs involving appearance and behavior (principal); Z53.21 Procedure and treatment not carried out due to patient leaving prior to being seen by health care provider

== ENCOUNTER 2023-12-21 05:27 | Emergency (ER) | payer MEDICAID ==
[~2023-12-21] VITALS: Ht 162.6 cm; Wt 62.9 kg
[2023-12-21 07:44] VITALS: BP 120/77; PULSE 87; RESP 17; TEMP 97.4; O2SAT 100
[2023-12-21 08:50] LABS: Urine Bacteria None Seen /hpf (None Seen)
[2023-12-21 09:03] LABS: Urine Blood Negative /uL (Negative); Urine Clarity Clear (Clear); Urine Color Light-Yellow (Yellow); Urine Protein, UAD Negative (Negative); Urine Urobilinogen Normal (Negative); Urine WBC 2 /hpf (0 - 5)
[2023-12-21 09:14] LABS: Vaginal Bacteria Moderate; Vaginal Epithelial Cells Moderate
[2023-12-21 09:15] LABS: Vaginal Clue Cells None Seen
[2023-12-21 09:16] LABS: Vaginal Trichomonas Not Present
[2023-12-21] MEDS ORDERED: MET075VC VG (09:57)
[2023-12-23 13:07] LABS: Chlamydia Trachomatis, NAA Positive (Negative); Neisseria gonorrhoeae, NAA Negative (Negative)
== END 2023-12-21 09:57 | disposition home or self-care (01) ==
LOC: ER 05:29
DX: N76.0 Acute vaginitis (principal); F17.210 Nicotine dependence, cigarettes, uncomplicated; F15.90 Other stimulant use, unspecified, uncomplicated; F20.9 Schizophrenia, unspecified; Z88.1 Allergy status to other antibiotic agents; Z88.6 Allergy status to analgesic agent
CPT/HCPCS: 81001; 81025; 87210

== ENCOUNTER 2023-12-27 16:58 | Emergency (ER) | payer MEDICAID ==
[~2023-12-27] VITALS: Ht 167.6 cm; Wt 70.0 kg
[~2023-12-27 16:58] MED LIST changes: +MET075VC VG
[2023-12-27 18:16] VITALS: BP 130/92; PULSE 92; RESP 18; TEMP 98.6; O2SAT 95
[2023-12-27] MEDS: SODIUM CHLORIDE 0.9% 1,000 ML IV ONE (18:57)
[2023-12-27 19:08] LABS: Basophils # (auto) 0.1 10 ^3/uL (0-0.2); Basophils % (auto) 0.8 % (0.0-2.0); Eosinophils # (auto) 0.1 10 ^3/uL (0-0.8); Eosinophils % (auto) 1.8 % (0.0-7.0); Hematocrit 38.5 % (36.0-46.0); Lymphocytes # (auto) 2.8 10 ^3/uL (0.4-5.4); Mean Corpuscular Hemoglobin 31.5 pg (28.0-32.0); Mean Corpuscular Hgb Conc. 33.7 g/dL (32.0-36.0); Mean Corpuscular Volume 93.5 fL (80.0-100.0); Monocytes # (auto) 0.7 10 ^3/uL (0-1.3); Monocytes % (auto) 8.8 % (0.0-12.0); Neutrophils # (auto) 4.1 10 ^3/uL (1.6-8.6); Neutrophils % (auto) 52.6 % (37.0-80.0); Nucleated Red Blood Cells % 0.1 %; Red Blood Cells 4.12 10^6/uL (4.0-5.20); Red Cell Distribution Width 15.2 % (11.8-14.3); White Blood Cell 7.8 10^3/uL (4.4-10.8)
[2023-12-27 19:26] LABS: Chloride 108 mmol/L (98-107); Potassium 4.1 mmol/L (3.5-5.1); Sodium 138 mmol/L (136-145)
[2023-12-27 19:27] LABS: Anion Gap 5 (5-15); Carbon Dioxide 25 mmol/L (20-30)
[2023-12-27 19:32] LABS: BUN/Creatinine Ratio 12.4 (10.0-20.0); Blood Urea Nitrogen 12 mg/dL (9-23); Glucose 89 mg/dL (74-106); Lipase 35 U/L (12-53)
== END 2023-12-27 20:05 | disposition left against medical advice (07) ==
LOC: EDBD 16:58 → ER 16:58
DX: F15.10 Other stimulant abuse, uncomplicated (principal); F41.9 Anxiety disorder, unspecified; F32.A Depression, unspecified; F20.9 Schizophrenia, unspecified; F17.210 Nicotine dependence, cigarettes, uncomplicated; F12.10 Cannabis abuse, uncomplicated; Z59.00 Homelessness unspecified; Z79.899 Other long term (current) drug therapy
CPT/HCPCS: 36415; 80048; 83690; 84484; 85025; 96360; 99283; J7030

== ENCOUNTER 2024-01-15 12:12 | Emergency (ER) | payer MEDICAID ==
[~2024-01-15] VITALS: Ht 170.2 cm; Wt 79.5 kg
[2024-01-15 13:08] VITALS: PULSE 88; RESP 16; O2SAT 98
[2024-01-15 13:09] LABS: Amphetamine Screen, Urine Pos (NEGATIVE); Barbiturate Scree,Urine Neg (NEGATIVE); Benzodiazephine Screen, Urine Neg (NEGATIVE); Cannabinoid Screen, Urine Neg (NEGATIVE); Cocaine Screen, Urine Neg (NEGATIVE); Opiate Scree,Urine Neg (NEGATIVE); Phencyclidine Screen, Urine Neg (NEGATIVE)
[2024-01-15 13:33] LABS: Acetaminophen < 2.0 UG/ML (10.0-20.0); Alanine Aminotransferase 20 U/L (7-40); Albumin 3.8 g/dL (3.2-4.8); Alkaline Phosphatase 54 U/L (46-116); Anion Gap 5 (5-15); Aspartate Aminotransferase 13 U/L (13-40); BUN/Creatinine Ratio 16.1 (10.0-20.0); Bilirubin, Total 0.3 mg/dL (0.2-1.0); Blood Urea Nitrogen 14 mg/dL (9-23); Calcium 8.7 mg/dL (8.7-10.4); Carbon Dioxide 27 mmol/L (20-30); Chloride 110 mmol/L (98-107); Glucose 91 mg/dL (74-106); Potassium 4.3 mmol/L (3.5-5.1); Sodium 142 mmol/L (136-145)
[2024-01-15 13:34] LABS: Basophils # (auto) 0 10 ^3/uL (0-0.2); Basophils % (auto) 0.6 % (0.0-2.0); Eosinophils # (auto) 0.2 10 ^3/uL (0-0.8); Eosinophils % (auto) 2.8 % (0.0-7.0); Hematocrit 31.5 % (36.0-46.0); Hemoglobin 10.5 g/dL (12.2-16.2); Lymphocytes # (auto) 2.1 10 ^3/uL (0.4-5.4); Lymphocytes % (auto) 37.3 % (10.0-50.0); Mean Corpuscular Hemoglobin 31.3 pg (28.0-32.0); Mean Corpuscular Hgb Conc. 33.3 g/dL (32.0-36.0); Mean Corpuscular Volume 93.9 fL (80.0-100.0); Monocytes # (auto) 0.6 10 ^3/uL (0-1.3); Monocytes % (auto) 10.4 % (0.0-12.0); Neutrophils # (auto) 2.8 10 ^3/uL (1.6-8.6); Neutrophils % (auto) 48.9 % (37.0-80.0); Red Blood Cells 3.36 10^6/uL (4.0-5.20); Red Cell Distribution Width 15.7 % (11.8-14.3); White Blood Cell 5.7 10^3/uL (4.4-10.8)
[2024-01-15 13:35] LABS: Salicylate < 3.0 mg/dL (2.8-20.0)
[2024-01-15] MEDS: diphenhdrAMINE HCL 50 MG/1 ML VL IM ONE (13:43)
[2024-01-15] MEDS: LORazepam 2MG/ML-1ML VIAL IM ONE (13:44)
[2024-01-16 08:18] VITALS: RESP 80; O2SAT 98
[2024-01-16] MEDS: OLANZapine 5 MG TAB PO ONE ×2 (08:26→10:07)
[2024-01-16 10:54] VITALS: BP 93/55; PULSE 73; RESP 16; TEMP 98.1; O2SAT 99
== END 2024-01-16 15:03 | disposition home or self-care (01) ==
LOC: ER 12:12
DX: F20.9 Schizophrenia, unspecified (principal); R10.2 Pelvic and perineal pain; F15.10 Other stimulant abuse, uncomplicated; F17.210 Nicotine dependence, cigarettes, uncomplicated; F12.10 Cannabis abuse, uncomplicated; F41.9 Anxiety disorder, unspecified; F32.9 Major depressive disorder, single episode, unspecified; Z32.02 Encounter for pregnancy test, result negative; Z59.00 Homelessness unspecified
CPT/HCPCS: 36415; 80053; 80307; 80329; 81025; 84702; 85025; 96372; 99285; J1200; J2060

== ENCOUNTER 2024-02-05 03:52 | Emergency (ER) | payer MEDICAID ==
[~2024-02-05] VITALS: Ht 170.2 cm; Wt 77.9 kg
[2024-02-05 04:18] VITALS: BP 140/96; RESP 18; O2SAT 95
[2024-02-05] MEDS ORDERED: NAPROXEN 500 MG TAB PO ONE ×2 (04:45)
[2024-02-05 05:35] VITALS: PULSE 69
== END 2024-02-05 07:43 | disposition left against medical advice (07) ==
LOC: ER 03:57
DX: F20.9 Schizophrenia, unspecified (principal); F41.9 Anxiety disorder, unspecified; F32.9 Major depressive disorder, single episode, unspecified; F17.210 Nicotine dependence, cigarettes, uncomplicated; F15.90 Other stimulant use, unspecified, uncomplicated; Z79.899 Other long term (current) drug therapy
CPT/HCPCS: 93005

== ENCOUNTER 2024-02-13 00:11 | Emergency (ER) | payer MEDICAID ==
[~2024-02-13] VITALS: Ht 170.2 cm; Wt 81.3 kg
[2024-02-13 00:27] VITALS: BP 115/63; PULSE 75; RESP 18; O2SAT 75
[2024-02-13 01:02] LABS: Basophils # (auto) 0 10 ^3/uL (0-0.2); Basophils % (auto) 0.6 % (0.0-2.0); Eosinophils # (auto) 0.2 10 ^3/uL (0-0.8); Eosinophils % (auto) 2.6 % (0.0-7.0); Hematocrit 35.6 % (36.0-46.0); Hemoglobin 11.8 g/dL (12.2-16.2); Lymphocytes # (auto) 3.2 10 ^3/uL (0.4-5.4); Mean Corpuscular Hgb Conc. 33.1 g/dL (32.0-36.0); Mean Corpuscular Volume 93.7 fL (80.0-100.0); Monocytes # (auto) 0.6 10 ^3/uL (0-1.3); Monocytes % (auto) 7.9 % (0.0-12.0); Neutrophils # (auto) 3.1 10 ^3/uL (1.6-8.6); Neutrophils % (auto) 43.9 % (37.0-80.0); Platelet Count (auto) 247 10^3/uL (140-450); Red Blood Cells 3.81 10^6/uL (4.0-5.20); Red Cell Distribution Width 15.6 % (11.8-14.3); White Blood Cell 7.1 10^3/uL (4.4-10.8)
[2024-02-13 01:15] LABS: Acetaminophen < 2.0 UG/ML (10.0-20.0)
[2024-02-13 01:16] LABS: Alanine Aminotransferase 14 U/L (7-40); Albumin 4.3 g/dL (3.2-4.8); Alkaline Phosphatase 63 U/L (46-116); Anion Gap 5 (5-15); Aspartate Aminotransferase 18 U/L (13-40); BUN/Creatinine Ratio 13.8 (10.0-20.0); Bilirubin, Total 0.4 mg/dL (0.2-1.0); Blood Alcohol < 3.0 mg/dL (<10); Blood Urea Nitrogen 11 mg/dL (9-23); Calcium 9.5 mg/dL (8.7-10.4); Carbon Dioxide 26 mmol/L (20-30); Chloride 109 mmol/L (98-107); Glucose 98 mg/dL (74-106); Salicylate < 3.0 mg/dL (2.8-20.0); Sodium 140 mmol/L (136-145); Total Protein 7.1 g/dL (5.7-8.2)
[2024-02-13 03:05] LABS: Urine Bacteria None Seen /hpf (None Seen)
[2024-02-13 03:29] LABS: Amphetamine Screen, Urine Pos (NEGATIVE); Benzodiazephine Screen, Urine Neg (NEGATIVE); Urine Blood Negative /uL (Negative); Urine Clarity Turbid (Clear); Urine Color Light-Yellow (Yellow); Urine Mucus FEW (None Seen); Urine Protein, UAD Negative (Negative); Urine Specific Gravity 1.027 (1.001-1.035); Urine Urobilinogen Normal (Negative); Urine WBC 3 /hpf (0 - 5)
[2024-02-13 03:30] LABS: Barbiturate Scree,Urine Neg (NEGATIVE); Cannabinoid Screen, Urine Neg (NEGATIVE); Cocaine Screen, Urine Neg (NEGATIVE); Opiate Scree,Urine Neg (NEGATIVE); Phencyclidine Screen, Urine Neg (NEGATIVE)
== END 2024-02-13 10:00 | disposition home or self-care (01) ==
LOC: ER 00:11
DX: R45.851 Suicidal ideations (principal); F20.9 Schizophrenia, unspecified; F41.9 Anxiety disorder, unspecified; F32.9 Major depressive disorder, single episode, unspecified; F17.210 Nicotine dependence, cigarettes, uncomplicated; F12.10 Cannabis abuse, uncomplicated; F15.10 Other stimulant abuse, uncomplicated; Z59.00 Homelessness unspecified; Z79.899 Other long term (current) drug therapy
CPT/HCPCS: 36415; 80053; 80307; 80320; 80329; 81001; 85025

== ENCOUNTER 2024-02-13 11:46 | Emergency (ER) | payer MEDICAID ==
[~2024-02-13] VITALS: Ht 170.2 cm; Wt 82.0 kg
[2024-02-13 12:07] VITALS: BP 118/73; PULSE 93; RESP 16; O2SAT 97
== END 2024-02-13 13:15 | disposition left against medical advice (07) ==
LOC: ER 11:46
DX: S29.8XXA Other specified injuries of thorax, initial encounter (principal); Z53.21 Procedure and treatment not carried out due to patient leaving prior to being seen by health care provider; W18.39XA Other fall on same level, initial encounter; Y93.89 Activity, other specified; Y92.89 Other specified places as the place of occurrence of the external cause; Y99.8 Other external cause status

== ENCOUNTER 2024-04-11 20:33 | Emergency (ER) | payer MEDICAID ==
[~2024-04-11] VITALS: Ht 170.2 cm; Wt 165.0 kg
[2024-04-11 21:35] LABS: Basophils # (auto) 0.1 10 ^3/uL (0-0.2); Basophils % (auto) 0.9 % (0.0-2.0); Eosinophils # (auto) 0.1 10 ^3/uL (0-0.8); Hematocrit 38.1 % (36.0-46.0); Hemoglobin 12.7 g/dL (12.2-16.2); Lymphocytes # (auto) 2.8 10 ^3/uL (0.4-5.4); Lymphocytes % (auto) 41.7 % (10.0-50.0); Mean Corpuscular Hemoglobin 32.1 pg (28.0-32.0); Mean Corpuscular Hgb Conc. 33.3 g/dL (32.0-36.0); Mean Corpuscular Volume 96.3 fL (80.0-100.0); Monocytes # (auto) 0.6 10 ^3/uL (0-1.3); Monocytes % (auto) 9.4 % (0.0-12.0); Nucleated Red Blood Cells % 0.1 %; Platelet Count (auto) 227 10^3/uL (140-450); Red Blood Cells 3.96 10^6/uL (4.0-5.20); White Blood Cell 6.6 10^3/uL (4.4-10.8)
[2024-04-11 21:43] LABS: Chloride 108 mmol/L (98-107); Potassium 4.7 mmol/L (3.5-5.1); Sodium 141 mmol/L (136-145)
[2024-04-11 21:44] LABS: Anion Gap 7 (5-15); Carbon Dioxide 26 mmol/L (20-31)
[2024-04-11 21:45] LABS: Calcium 9.5 mg/dL (8.7-10.4)
[2024-04-11 21:49] LABS: Glucose 78 mg/dL (74-106)
[2024-04-11 21:50] LABS: BUN/Creatinine Ratio 7.4 (10.0-20.0); Blood Alcohol < 3.0 mg/dL (<10); Blood Urea Nitrogen 9 mg/dL (9-23)
[2024-04-12 09:36] VITALS: PULSE 73; RESP 16; O2SAT 99
[2024-04-12] MEDS: OLANZapine 5 MG TAB PO SCH (10:00)
[2024-04-13 06:34] VITALS: PULSE 85; RESP 16; O2SAT 100
[2024-04-13 07:36] VITALS: PULSE 72; RESP 16; O2SAT 100
[2024-04-13 10:09] VITALS: BP 101/60; PULSE 83; RESP 17; TEMP 98.8; O2SAT 98
== END 2024-04-13 10:33 ==
LOC: EDBD 20:33 → EDUNIT# 20:33 → ER 20:33
DX: R45.851 Suicidal ideations (principal); F20.9 Schizophrenia, unspecified; F15.10 Other stimulant abuse, uncomplicated; F17.210 Nicotine dependence, cigarettes, uncomplicated; F41.9 Anxiety disorder, unspecified; F32.A Depression, unspecified; F12.10 Cannabis abuse, uncomplicated; Z59.00 Homelessness unspecified; Z91.51 Personal history of suicidal behavior
CPT/HCPCS: 36415; 80048; 80320; 85025

== ENCOUNTER 2024-04-12 03:46 | Emergency (ER) | payer MEDICAID | END 2024-04-12 03:47 | disposition left against medical advice (07) | LOC: ER 03:46 | DX: Z00.8 Encounter for other general examination (principal); Z53.21 Procedure and treatment not carried out due to patient leaving prior to being seen by health care provider ==

== ENCOUNTER 2024-07-21 06:25 | Emergency (ER) | payer MEDICAID ==
[~2024-07-21] VITALS: Ht 167.6 cm; Wt 82.2 kg
--- NOTE | 2024-07-21 07:13 | ED.PDOC ---
Psychiatric HPI Comments 34Y F with PMHx depression and schizophrenia presents to ED for chief complaint mental health with visual and auditory hallucinations. Pt states she was discharged from [facility] yesterday and then consumed meth all night. Pt denies SI/HI. No other symptoms reported. Chief Complaint: Mental Health Time Seen by MD: 07:00 Primary Care Provider: Lucero Leyva Notes: Nurses Notes, Medications, Allergies Information Source: Patient Mode of Arrival: Ambulatory Severity: Unable to Care for Self, Able to Control Self Severity of Pain: None Severity of Mental Status: Moderate Severity of Symptoms: Moderate Timing: Hours Duration: Since onset Presents with: Other Ingestion: Intentional, Multiple, Drug(s) Ingested Circumstance: None Current substance abuse: Amphetamines Stressors: Homeless History of: Depression, Schizophrenia Quality: Hallucinations Location: None Location of pain or injury: None Associated signs and symptoms: Hallucinations Past Medical History PAST MEDICAL HISTORY: Anxiety, Depression, Schizophrenia Surgical History: Unobtainable B[employer]ER History: Unobtainable Family History Family History: Unobtainable Social History Smoker: Cigarettes Alcohol: Occasionally Drugs: Marijuana, Methamphetamine Lives In: Homeless Constitutional: denies: chills, diaphoresis, fatigue, fever, malaise, sweats, weakness, others EENTM: denies: blurred vision, double vision, ear bleeding, ear discharge, ear drainage, ear pain, ear ringing, eye pain, eye redness, hearing loss, mouth pain, mouth swelling, nasal discharge, nose bleeding, nose congestion, nose pain, photophobia, tearing, throat pain, throat swelling, voice changes, others Respiratory: denies: cough, hemoptysis, orthopnea, SOB at rest, shortness of breath, SOB with excertion, stridor, wheezing, others Cardiovascular: denies: chest pain, dizzy spells, diaphoresis, Dyspnea on exertion, edema, irregular heart beat, left arm pain, lightheadedness, palpitations, PND, syncope, others Gastrointestinal: denies: abdomen distended, abdominal pain, blood streaked bowels, constipated, diarrhea, dysphagia, difficulty swallowing, hematemesis, melena, nausea, poor appetite, poor fluid intake, rectal bleeding, rectal pain, vomiting, others Genitourinary: denies: abnormal vagina bleeding, burning, dyspareunia, dysuria, flank pain, frequency, hematuria, incontinence, pain, , vagina discharge, urgency, others Neurological: denies: dizziness, fainting, headache, left sided numbness, left sided weakness, numbness, paresthesia, pre-existing deficit, right sided numbne ss, right sided weakness, seizure, speech problems, tingling, tremors, weakness, others Musculoskeletal: denies: back pain, gout, joint pain, joint swelling, muscle pain, muscle stiffness, neck pain, others Integumetry: denies: bruises, change in color, change in hair/nails, dryness, laceration, lesions, lumps, rash, wounds, others Allergic/Immunocompromised: denies: Difficulty Healing, Frequent Infections, Hives, Itching, others Hematologic/Lymphatic: denies: anemia, blood clots, easy bleeding, easy bruising, swollen glands, others Endocrine: denies: excessive hunger, excessive sweating, excessive thirst, excessive urination, flushing, intolerance to cold, intolerance to heat, unexplained weight gain, unexplained weight loss, others Psychiatric: reports: others (hallucinations); denies: anxiety, bipolar disorder, depression, hopeless, panic disorder, schizophrenia, sleepless, suicidal All Other Systems: Reviewed and Negative Physical Exam General Appearance: Moderate Distress, Normal HEENT: Normal ENT Inspection, Pharynx Normal, TMs Normal Neck: Full Range of Motion, Non-Tender, Normal, Normal Inspection Respiratory: Chest Non-Tender, Lungs Clear, No Accessory Muscle Use, No Respiratory Distress, Normal Breath Sounds Cardiovascular: No Edema, No JVD, No Murmur, No Gallop, Normal Peripheral Pulses, Regular Rate/Rhythm Breast Exam: Deferred Gastrointestinal: No Organomegaly, Non Tender, No Pulsatile Mass, Normal Bowel Sounds, Soft Genitalia: Deferred Pelvic: Deferred Rectal: Deferred Extremities: No calf tenderness, Normal capillary refill, Normal inspection, Normal range of motion, Non-tender, No pedal edema Musculoskeletal : Apperance: Normal Neurologic: Alert, liaison officer II-XII nml as Tested, No Motor Deficits, Normal Affect, Normal Mood, No Sensory Deficits Cerebellar Function: Normal Reflexes: Normal Skin: Dry, Normal Color, Warm Peripheral Pulses: 3+ Radial (R), 3+ Radial (L) Lymphatic: No Adenopathy Was a procedure done? Was a procedure done?: No Psych Differential Dx Psych. Differential Dx: Anxiety, Schizoprenia OD Differential Dx: Hallucinations Intoxication Differential Dx: Drug-Induced Psychosis X-Ray, Labs, Meds, VS Vital Signs Date Time Temp Pulse Resp B/P (MAP) Pulse Ox O2 Delivery O2 Flow Rate FiO2 07/21/24 10:28 97.7 88 16 116/82 (93) 100 97.7 07/21/24 10:08 88 16 100 Room Air* 0 21 07/21/24 06:56 97.9 102 16 108/72 (84) 98 Lab Test 07/21/24 08:01 Range/Units Urine Test Negative Negative Urine Opiates Screen Neg NEGATIVE Urine Fentanyl Screen Neg NEGATIVE Urine Barbiturates Screen Neg NEGATIVE Urine Phencyclidine Screen Neg NEGATIVE Urine Amphetamines Screen Pos NEGATIVE Urine Benzodiazepines Screen Neg NEGATIVE Urine Cocaine Screen Neg NEGATIVE Urine Cannabinoids Screen Neg NEGATIVE Patient alert. Hearing voices. Vitals stable. Answering questions. UDS does show amphetamine. Medically cleared. Psychiatric evaluation. Time of 1ST Reevaluation: 07:30 Reevaluation 1ST: Unchanged Patient Education/Counseling: Diagnosis, Treatment Family Education/Counseling: No Family Present Departure 1 Departure Time of Disposition: 18:08 Impression: Primary Impression: Suicidal ideation Disposition: 30 STILL A PATIENT Condition: Good Critical Care Note Critical Care Time?: No Stability Stability form required: No Heart Score Heart Score: Heart Score Response (Comments) Value History N/A 0 EKG N/A 0 Age N/A 0 Risk Factors N/A 0 Troponin N/A 0 Total 0 I personally scribed for MAN RUIZ MD ([email or web address]) on 07/21/24 at 07:13. Electronically submitted by Shawna Monterroso ([email or web address]). MAN RUIZ MD Jul 21, 2024 07:13
[2024-07-21 08:26] LABS: Amphetamine Screen, Urine Pos (NEGATIVE); Barbiturate Scree,Urine Neg (NEGATIVE); Benzodiazephine Screen, Urine Neg (NEGATIVE); Cannabinoid Screen, Urine Neg (NEGATIVE); Cocaine Screen, Urine Neg (NEGATIVE); Opiate Scree,Urine Neg (NEGATIVE); Phencyclidine Screen, Urine Neg (NEGATIVE)
[2024-07-21 10:08] VITALS: PULSE 88; RESP 16; O2SAT 100
--- NOTE | 2024-07-21 10:44 | DVHINCON2 ---
Date of Service if different f: Jul 21, 2024 Consultation ([facility]) Labs Laboratory Tests Test 07/21/24 08:01 Urine Opiates Screen Neg (NEGATIVE) Urine Fentanyl Screen Neg (NEGATIVE) Urine Barbiturates Screen Neg (NEGATIVE) Urine Phencyclidine Screen Neg (NEGATIVE) Urine Amphetamines Screen Pos (NEGATIVE) Urine Benzodiazepines Screen Neg (NEGATIVE) Urine Cocaine Screen Neg (NEGATIVE) Urine Cannabinoids Screen Neg (NEGATIVE) Appetite: Fair Appearance: Older than stated age, Disheveled Psychomotor activity: WNL Behavioral: Cooperative, Bizaare, Withdrawn Eye contact: Limited Speech: Confused Affect: Blunted Mood: Euphoric Thought processes: Circumstantial Thought content: Hallucinations (auditory) Suicidal ideations: Absent Homicidal ideations: Absent Orientation: Person, Place, Time, Situation Memory intact: Recent Intellect: Average Abstractability: Marginal Concentration: Poor Attention: Poor Judgement: Limited Insight: Poor Vitals Vital Signs Date Time Temp Pulse Resp B/P (MAP) Pulse Ox O2 Delivery O2 Flow Rate FiO2 07/21/24 06:56 97.9 102 16 108/72 (84) 98 Medication adjusted: Yes Diagnosis: unspecified psychosis r/o substance-induced Plan : Pt remains acutely psychotic, has trouble focusing on during interview, and does not provide viable self-care plan recommend 5150hold for GD and transfer to a psychiatric hospital for treatment and stabilization Recommend Zyprexa 5mg po BID History of Present Illness Reason for Consult : psychosis and disorganization HPI : This is a 34-year-old female with hx of psychosis and methamphetamine abuse presents here reporting auditory and visual hallucinations. Patient has mu ltiple prior behavioral health ED presentations here. Patient is evaluated via telepsychiatry. She is preoccupied, has delays in answering questions. She reports [facility] a [facility] and discharged after 3days and she then smoked meth last night and now here. She does not appear to be a reliable historian. When asked about living arrangements, she reports living with her son age 11 add daughter age 6 alone. Asked did they go to school today, she later says they went to the dentist today but she cannot report how they arrived to dentist. She later says "Dilan" has custody, again could not provide details. She denies suicidal/homicidal ideation, hopeless or depressed mood. She also denies auditory/visual hallucination but has thought delays and difficulty focusing on interview. She is observed responding to unseen stimuli. Interview limited due patient's clinical condition. Past Psychiatric History : She has multiple prior psychiatric admissions. She denies prior suicide attempts. She cannot answer if has she has current outpatient mental health follow up. She denies prescriptions for psychotics. She cannot provide prior mental health diagnoses. Past Medical History : She denies Social History : Her living arrangements is unclear, initially reports having apartment, living with her kids and later changes her story to trying to find housing. She has chronic meth use, unknown other substances. Her toxicology only positive for methamphetamines. No known family history. She is not employed. She reports having 2 children but known custody arrangement. ANJELICA PERDOMO DNP Jul 21, 2024 10:44
[2024-07-21] MEDS: OLANZapine 5 MG TAB PO SCH (20:51)
[2024-07-21] MEDS: HALOPERIDOL LACTATE 5 MG/ML INJ VIAL IM ONE (20:51)
[2024-07-22 07:45] VITALS: PULSE 67; RESP 12; O2SAT 97
[2024-07-22 17:07] VITALS: BP 97/64; PULSE 83; RESP 18; TEMP 97.9; O2SAT 97
== END 2024-07-22 17:10 | disposition short-term general hospital (02) ==
LOC: ER 06:25
DX: R45.851 Suicidal ideations (principal); F15.10 Other stimulant abuse, uncomplicated; F17.210 Nicotine dependence, cigarettes, uncomplicated; F20.9 Schizophrenia, unspecified; Z59.00 Homelessness unspecified
CPT/HCPCS: 80307; 81025; 96372; 99285; J1630

== ENCOUNTER 2024-08-23 19:24 | Emergency (ER) | payer MEDICAID ==
[~2024-08-23] VITALS: Ht 170.2 cm; Wt 79.7 kg
--- NOTE | 2024-08-23 20:25 | ED.PDOC ---
Psychiatric HPI Comments 34-year-old female with a history of psychosis and methamphetamine abuse and multiple prior visits here for methamphetamine related mental health issues brought in by self stating I'm hearing voices and I don't feel good. When asked how long the symptoms have been present, patient is unable to answer, stating um, um..." Patient states, my stomach hurts, localizes the pain to the supraumbilical area, cannot state whether or not she has had fever, nausea, vomiting, diarrhea or urinary symptoms. Patient denies SI/HI, appears to be responding to internal stimuli. Patient also stated to shade matcher that she smokes her psych meds because she feels that makes some work better. No other history is obtainable from the patient. 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 Family History Family History: Unobtainable Social History Smoker: Cigarettes Alcohol: Occasionally Drugs: Marijuana, Methamphetamine Lives In: Homeless Unable to Obtain due to: Altered Mental Status Physical Exam General Appearance: No Apparent Distress HEENT: PERRL/EOMI, Other (Moist mucous membranes) Neck: Full Range of Motion, Normal Inspection Respiratory: Lungs Clear, No Accessory Muscle Use, No Respiratory Distress, Normal Breath Sounds Cardiovascular: No Edema, No JVD, Regular Rate/Rhythm Breast Exam: Deferred Gastrointestinal: Non Tender, Soft Genitalia: Deferred Pelvic: Deferred Rectal: Deferred Extremities: Normal inspection, Normal range of motion, Non-tender, No pedal edema Neurologic: Alert (Oriented x3), Normal Affect, Normal Mood, Other (Ambulatory. No gross focal deficit.) Cerebellar Function: NOT DONE Reflexes: NOT DONE Skin: Dry, Normal Color, Warm Lymphatic: NOT DONE Was a procedure done? Was a procedure done?: No Psych Differential Dx Psych. Differential Dx: Anxiety OD Differential Dx: Alcohol Abuse, Encephalopathy, Schizophrenia, Substance Abuse Intoxication Differential Dx: Substance Abuse Disorder X-Ray, Labs, Meds, VS Vital Signs Date Time Temp Pulse Resp B/P (MAP) Pulse Ox O2 Delivery O2 Flow Rate FiO2 08/23/24 23:54 63 16 105/75 (85) 100 08/23/24 19:46 97.0 70 14 115/79 (91) 100 Lab Test 08/24/24 00:18 08/23/24 20:16 08/23/24 19:50 Range/Units Troponin I High Sensitivity < 3 L < 3 L </=34 ng/L White Blood Count 7.8 4.4-10.8 10^3/uL Red Blood Count 4.09 4.0-5.20 10^6/uL Hemoglobin 13.1 12.2-16.2 g/dL Hematocrit 38.7 36.0-46.0 % Mean Corpuscular Volume 94.5 80.0-100.0 fL Mean Corpuscular Hemoglobin 32.1 H 28.0-32.0 pg Mean Corpuscular Hemoglobin Concent 34.0 32.0-36.0 g/dL Red Cell Distribution Width 15.5 H 11.8-14.3 % Platelet Count 261 140-450 10^3/uL Mean Platelet Volume 8.4 6.9-10.8 fL Neutrophils (%) (Auto) 59.9 37.0-80.0 % Lymphocytes (%) (Auto) 32.8 10.0-50.0 % Monocytes (%) (Auto) 5.6 0.0-12.0 % Eosinophils (%) (Auto) 1.0 0.0-7.0 % Basophils (%) (Auto) 0.7 0.0-2.0 % Neutrophils # (Auto) 4.7 1.6-8.6 10 ^3/uL Lymphocytes # (Auto) 2.6 0.4-5.4 10 ^3/uL Monocytes # (Auto) 0.4 0-1.3 10 ^3/uL Eosinophils # (Auto) 0.1 0-0.8 10 ^3/uL Basophils # (Auto) 0.1 0-0.2 10 ^3/uL Nucleated Red Blood Cells 0.0 % Sodium Level 140 136-145 mmol/L Potassium Level 3.8 3.5-5.1 mmol/L Chloride Level 104 98-107 mmol/L Carbon Dioxide Level 26 20-31 mmol/L Anion Gap 10 5-15 Blood Urea Nitrogen 9 9-23 mg/dL Creatinine 0.97 0.550-1.02 mg/dL Glomerular Filtration Rate Calc 80 >90 mL/min BUN/Creatinine Ratio 9.3 L 10.0-20.0 Serum Glucose 85 74-106 mg/dL Calcium Level 10.0 8.7-10.4 mg/dL Total Bilirubin 0.7 0.2-1.0 mg/dL Aspartate Amino Transferase (AST) 15 13-40 U/L Alanine Aminotransferase (ALT) 11 7-40 U/L Alkaline Phosphatase 62 46-116 U/L Total Protein 8.2 5.7-8.2 g/dL Albumin 5.1 H 3.2-4.8 g/dL Lipase 37 12-53 U/L Beta HCG, Quantitative 0.8 L 1.5-4.2 mIU/mL Plasma/Serum Blood Alcohol 3.5 <10 mg/dL Urine Color Colorless Yellow Urine Clarity Clear Clear Urine pH 5.5 5.0-9.0 Urine Specific [place] 1.003 1.001-1.035 Urine Protein Negative Negative Urine Ketones Negative Negative Urine Blood 3+ H Negative /uL Urine Nitrite Negative Negative Urine Bilirubin Negative Negative Urine Urobilinogen Normal Negative mg/dL Urine Leukocyte Esterase 1+ Negative /uL Urine RBC 2 0 - 4 /hpf Urine Microscopic WBC 5 0-5 /HPF Urine Squamous Epithelial Cells Few <5 /hpf Urine Bacteria Mod H None Seen /hpf Urine Glucose Normal Normal mg/dL Urine Opiates Screen Neg NEGATIVE Urine Fentanyl Screen Neg NEGATIVE Urine Barbiturates Screen Neg NEGATIVE Urine Phencyclidine Screen Neg NEGATIVE Urine Amphetamines Screen Pos NEGATIVE Urine Benzodiazepines Screen Neg NEGATIVE Urine Cocaine Screen Neg NEGATIVE Urine Cannabinoids Screen Neg NEGATIVE Current Medications Medications (Trade) Dose Ordered Sig/Desiree Route Start Time Stop Time Status Last Admin Lidocaine HCl (Xylocaine 2% Viscous) 10 ml ONCE ONCE PO 08/23/24 20:15 08/23/24 20:16 DC 08/23/24 23:37 Belladonna Alkaloids/ Phenobarbital ( Elixir) 10 ml ONCE ONCE PO 08/23/24 20:15 08/23/24 20:16 DC 08/23/24 23:38 Al Hydrox/Mg Hydrox/Simethicone (Maalox Plus) 30 ml ONCE ONCE PO 08/23/24 20:15 08/23/24 20:16 DC 08/23/24 23:37 Olanzapine (ZyPREXA Tablet) 20 mg ONCE ONCE PO 08/23/24 20:15 08/23/24 20:16 DC 08/23/24 23:37 Sodium Chloride 1,000 ml @ 1,000 mls/hr Q1H ONCE IV 08/23/24 20:15 08/23/24 21:14 DC 08/23/24 23:36 Ondansetron HCl (Zofran) 4 mg ONCE ONCE IV 08/23/24 20:15 08/23/24 20:16 DC 08/23/24 23:38 Ceftriaxone Sodium 50 ml @ 100 mls/hr ONCE ONCE IV 08/23/24 21:15 08/23/24 21:44 DC 08/23/24 23:38 PROCEDURE(s): ABPL - CT AB PEL WO CON-NO ORAL OR IV REASON: mid abd pain ORDER NUMBER(s): [id number], ACCESSION NUMBER(s): [id number] Exam: CT CT AB PEL WO CON-NO ORAL OR IV History: mid abd pain Comparison Study: None available at time of dictation. TECHNIQUE: Multidetector CT of the abdomen was performed from lung bases to pubic symphysis. Imaging was performed without IV contrast. Axial, coronal and sagittal multiplanar reformats were obtained from the axial data set by the technologist. Radiation Dose Information: CT Dose: CTDI volume is 9.5 mGy. Dose-length product is 537.12 mGy*cm FINDINGS: Evaluation of solid organs is limited due to lack of intravenous contrast use. Findings: Lung Bases: No acute or significant lung base finding. Normal heart size. No pleural or pericardial effusion. Liver: The liver is normal in size. No focal lesions. Gallbladder and Biliary Tree: Unremarkable Spleen: Unremarkable Pancreas: The pancreas is grossly normal in appearance. Adrenal Glands: Unremarkable Kidneys: Kidneys are grossly normal without calculi or hydronephrosis. Bladder: Grossly unremarkable for degree of distention. Bowel: The stomach is grossly normal in appearance. Small bowel and colon are normal in caliber and distribution. The appendix is not visualized; however, no secondary findings of acute appendicitis identified. Ascites: Absent Lymphadenopathy: No mesenteric, retroperitoneal or periportal lymphadenopathy. Abdominal Wall and Mesentery: Unremarkable. Vasculature: The visualized abdominal aorta is normal in size and caliber. Evaluation of abdominal and pelvic vessels is limited due to lack of intravenous contrast. Pelvic Organs: Unremarkable Musculoskeletal: No aggressive focal bony lesions, acute fractures or dislocation. Soft tissues: Unremarkable IMPRESSION: 1. No findings of bowel obstruction. 2. No nephrolithiasis or hydronephrosis 3. No free air or free fluid. Radiation optimization: All CT scans at this facility use at least one of these dose optimization techniques: automated exposure control mA and/or kV adjustment per patient size (includes targeted exams where dose is matched to clinical indication) or iterative reconstruction. X-Ray, Labs, Meds, VS Comment 34-year-old female with a history of psychosis and methamphetamine abuse and multiple prior visits here for methamphetamine related mental health issues brought in by self stating I'm hearing voices and I don't feel good. Patient also stated she has been smoking her psychiatric medications because she feels it makes them work better. She also states she is still using meth. Vitals unremarkable Exam unremarkable Rhythm strip independently interpreted by me: Sinus rhythm, rate 70, no ectopy. CT abdomen and pelvis IMPRESSION: 1. No findings of bowel obstruction. 2. No nephrolithiasis or hydronephrosis 3. No free air or free fluid. CBC unremarkable, CMP unremarkable, hCG negative, alcohol 3.5, drug screen positive amphetamines, UA abnormal consistent with UTI Patient treated with the following in the ED: Viscous lidocaine 10 mL/ 10 mL, Maalox 30 mL p.o., Zyprexa 20 mg p.o., 1 L 0.9 normal saline IV bolus, Zofran 4 mg IV, Rocephin 1 g IV On re-evaluation, patient states she feels better. Vitals are stable. She appears capable of navigating the community independently. I am comfortable discharging her with close follow-up with her psychiatrist. Rx Keflex, ibuprofen Addendum: Prior to discharge, the patient stated she was still hearing voices and now is suicidal. She denies having any specific plan to hurt herself. Patient was advised that psychiatric consult will be obtained. Disposition will be per psychiatrist recommendations. 0130 I discussed the case with Dr. Funk, who interviewed the patient via video consultation. I reviewed his notes. He does not feel the patient meets criteria for a 5150 hold or requires inpatient psychiatric treatment. Per his recommendations, the patient may be started on her regular meds, olanzapine 7.5 mg b.i.d., next dose to be given this morning around 7:00 a.m.. This was ordered. Patient can be safely discharged home after social work associate consultation. Per his notes: Recommend SW consult to assist pt with any post discharge housing assistance/MH/Substance abuse referrals per pts request Pt can be safely discharged back in AM after SW consultation Time of 1ST Reevaluation: 20:31 Reevaluation 1ST: Unchanged Patient Education/Counseling: Other (AMS) Family Education/Counseling: No Family Present Departure 1 Departure Time of Disposition: 22:37 Impression: Primary Impression: UTI (urinary tract infection) Qualified Codes: N39.0 - Urinary tract infection, site not specified Additional Impressions: Methamphetamine abuse Chronic psychosis Disposition: HOME / SELF CARE / HOMELESS Condition: Stable Additional Instructions: Your blood tests were unremarkable. Your urine test showed you have a urine infection. Your CT scan was unremarkable. Follow-up with your primary doctor and psychiatrist in 1-2 days. Take your medication orally as directed. Do not smoke it, as it will not be effective. I have prescribed antibiotics and pain medicine. e-Prescriptions Ibuprofen Micronized (Ibuprofen) 600 Mg Tab 600 MG PO Q6HP PRN, #30 TAB prn pain, take with food Prov: EDUARDO MEDEROS MD 08/23/24 Cephalexin Monohydrate (Cephalexin) 500 Mg Cap 1 CAP PO QID for 10 Days, #40 CAP Prov: EDUARDO MEDEROS MD 08/23/24 Discharged With: Self Critical Care Note Critical Care Time?: No Stability Stability form required: No Heart Score Heart Score: Heart Score Response (Comments) Value History N/A 0 EKG N/A 0 Age N/A 0 Risk Factors N/A 0 Troponin N/A 0 Total 0 I personally scribed for EDUARDO MEDEROS MD ([email or web address]) on 08/23/24 at 21:03. Electronically submitted by Dru Farrell ([email or web address]). EDUARDO MEDEROS MD Aug 23, 2024 20:25
[2024-08-23 20:54] LABS: Basophils # (auto) 0.1 10 ^3/uL (0-0.2); Basophils % (auto) 0.7 % (0.0-2.0); Eosinophils # (auto) 0.1 10 ^3/uL (0-0.8); Hematocrit 38.7 % (36.0-46.0); Hemoglobin 13.1 g/dL (12.2-16.2); Lymphocytes # (auto) 2.6 10 ^3/uL (0.4-5.4); Lymphocytes % (auto) 32.8 % (10.0-50.0); Mean Corpuscular Hemoglobin 32.1 pg (28.0-32.0); Mean Corpuscular Volume 94.5 fL (80.0-100.0); Monocytes # (auto) 0.4 10 ^3/uL (0-1.3); Monocytes % (auto) 5.6 % (0.0-12.0); Neutrophils # (auto) 4.7 10 ^3/uL (1.6-8.6); Neutrophils % (auto) 59.9 % (37.0-80.0); Platelet Count (auto) 261 10^3/uL (140-450); Red Blood Cells 4.09 10^6/uL (4.0-5.20); Red Cell Distribution Width 15.5 % (11.8-14.3); White Blood Cell 7.8 10^3/uL (4.4-10.8)
[2024-08-23 21:02] LABS: Urine Bacteria MOD /hpf (None Seen); Urine Blood 3+ /uL (Negative); Urine Clarity Clear (Clear); Urine Color Colorless (Yellow); Urine Protein, UAD Negative (Negative); Urine Specific Gravity 1.003 (1.001-1.035); Urine Squamous Epithelial Cell FEW /hpf (<5); Urine Urobilinogen Normal (Negative); Urine WBC 5 /HPF (0-5); Urine pH 5.5 (5.0-9.0)
[2024-08-23 21:10] LABS: Alanine Aminotransferase 11 U/L (7-40); Alkaline Phosphatase 62 U/L (46-116); Anion Gap 10 (5-15); Aspartate Aminotransferase 15 U/L (13-40); BUN/Creatinine Ratio 9.3 (10.0-20.0); Blood Alcohol 3.5 mg/dL (<10); Carbon Dioxide 26 mmol/L (20-31); Chloride 104 mmol/L (98-107); Glucose 85 mg/dL (74-106); Potassium 3.8 mmol/L (3.5-5.1); Sodium 140 mmol/L (136-145)
[2024-08-23 21:11] LABS: Bilirubin, Total 0.7 mg/dL (0.2-1.0)
[2024-08-23] MEDS ORDERED: CEPH500C PO (21:12)
[2024-08-23] MEDS ORDERED: IBUP1TAB5 PO (21:12)
[2024-08-23 21:16] LABS: Amphetamine Screen, Urine Pos (NEGATIVE); Barbiturate Scree,Urine Neg (NEGATIVE); Benzodiazephine Screen, Urine Neg (NEGATIVE); Cannabinoid Screen, Urine Neg (NEGATIVE); Cocaine Screen, Urine Neg (NEGATIVE); Opiate Scree,Urine Neg (NEGATIVE); Phencyclidine Screen, Urine Neg (NEGATIVE)
[2024-08-23 21:16] LABS: Albumin 5.1 g/dL (3.2-4.8); Blood Urea Nitrogen 9 mg/dL (9-23); Total Protein 8.2 g/dL (5.7-8.2)
[2024-08-23 21:27] LABS: Lipase 37 U/L (12-53)
--- NOTE | 2024-08-23 21:45 | DVH ---
Exam: CT CT AB PEL WO CON-NO ORAL OR IV History: mid abd pain Comparison Study: None available at time of dictation. TECHNIQUE: Multidetector CT of the abdomen was performed from lung bases to pubic symphysis. Imaging was performed without IV contrast. Axial, coronal and sagittal multiplanar reformats were obtained fr om the axial data set by the technologist. Radiation Dose Information: CT Dose: CTDI volume is 9.5 mGy. Dose-length product is 537.12 mGy*cm FINDINGS: Evaluation of solid organs is limited due to lack of intravenous contrast use. Findings: Lung Bases: No acute or significant lung base finding. Normal heart size. No pleural or pericardial effusion. Liver: The liver is normal in size. No focal lesions. Gallbladder and Biliary Tree: Unremarkable Spleen: Unremarkable Pancreas: The pancreas is grossly normal in appearance. Adrenal Glands: Unremarkable Kidneys: Kidneys are grossly normal without calculi or hydronephrosis. Bladder: Grossly unremarkable for degree of distention. Bowel: The stomach is grossly normal in appearance. Small bowel and colon are normal in caliber and d istribution. The appendix is not visualized; however, no secondary findings of acute appendicitis id entified. Ascites: Absent Lymphadenopathy: No mesenteric, retroperitoneal or periportal lymphadenopathy. Abdominal Wall and Mesentery: Unremarkable. Vasculature: The visualized abdominal aorta is normal in size and caliber. Evaluation of abdominal a nd pelvic vessels is limited due to lack of intravenous contrast. Pelvic Organs: Unremarkable Musculoskeletal: No aggressive focal bony lesions, acute fractures or dislocation. Soft tissues: Unremarkable IMPRESSION: 1. No findings of bowel obstruction. 2. No nephrolithiasis or hydronephrosis 3. No free air or free fluid. Radiation optimization: All CT scans at this facility use at least one of these dose optimization te chniques: automated exposure control mA and/or kV adjustment per patient size (includes targeted exa ms where dose is matched to clinical indication) or iterative reconstruction.
[2024-08-23] MEDS: SODIUM CHLORIDE 0.9% 1,000 ML IV ONE (23:36)
[2024-08-23] MEDS: MAALOX PLUS or MAALOX 30 ML PO ONE (23:37)
[2024-08-23] MEDS: OLANZapine 5 MG TAB PO ONE (23:37)
[2024-08-23] MEDS: LIDOCAINE VISCOUS 2% 15ML UD PO ONE (23:37)
[2024-08-23] MEDS: cefTRIAXone 1GM/50ML D5W 50 ML IV ONE (23:38)
[2024-08-23] MEDS: ONDANSETRON HCL 4 MG/2 ML VIAL IV ONE (23:38)
[2024-08-23] MEDS: DONNATAL 5ml ORAL Elix (BELLADONNA ALK-PHENOBARB) PO ONE (23:38)
--- NOTE | 2024-08-24 01:17 | DVHINCON2 ---
Date of Service if different f: Aug 24, 2024 Time of Service: 01:16 Consult Consult Note PSYCHIATRY ED NEW CONSULT HPI: 34 yo pt with PPH of schizophrenia and severe PSA presents to ED BIBA for safety, psychiatric stabilization and possible med initiation in setting of homelessness, med noncompliance, meth use, passive SI and psychosis. Psychiatry consulted for safety evaluation and recommendations in context of current presentation. Of note, pt of questionable historian with freq ED visits with similar CC/presentation in setting of homelessness and ongoing substance use Per pt, reports NC/NT AH, irritability, RTIS with some baseline though disorder. Denies depressed mood, hopelessness, helplessness, loss of interest, or anhedonia. Adamantly denies SI presently although expressed SI several hours ago. Denies HI/AVH presently. No overt manic, major depressive, or panic symptoms noted at present although continues to have baseline thought disorder in setting of untreated schizophrenia and is somewhat somnolent during interview Pt currently does not have psychiatrist/therapist out in community. Currently rx'd olanzapine 7.5 mg bid, with some hx of med noncompliance, last took meds o elijah a week ago although states she smokes her meds rather than swallow them Continues to self medicating mood symptoms with daily meth, thc and fentanyl use including IVDU, last used meth prior to admission, long hx of meth and THC dependence Never , two children who live with her parents, unemployed, currently homeless, limited support system noted. Unknown trauma hx. Unknown FH No acute medical issues, NKDA Does have remote hx of suicide attempts via drug OD resulting in prior psych hospitalizations including recent hospitalization for drug induced psychosis. Currently denies SI/HI. Some history of unprovoked aggression, anger outbursts, emotional dysregulation, mood reactivity in context of meth intoxication. Does not have access to firearms. Identifies self/children as PPF. No safety concerns noted during encounter. MSE: General Appearance/Behavior: Alert and partially awake; appears bit older than stated age, dyed hair, marginally fair grooming and hygiene; calm and cooperative, intermittent eye contact, no PMA/PMR Speech: bit slurred and incomprehensible at micheline Thought Process: linear, concrete, slightly impaired/tangential Thought Content: Abnormal Thoughts and Perceptions: None Homicidality / Violent Thoughts: None Suicidality: adamantly denies SI Hallucinations: None during assessment Delusions: some paranoia delusions Obsessions /compulsions : None Judgment and Insight: marginally fair/poor/limited Mood & Affect: "okay" with mood-congruent, appropriate Orientation: oriented to person, place, time Attention/Concentration: somewhat impaired Memory: grossly intact Language: no unusual or inappropriate language Assessment: 34 yo F pt with PPH of schizophrenia and severe PSA presents to ED BIBA for safety, psychiatric stabilization and possible med initiation/optimization in setting of homelessness, med noncompliance, ongoing meth use, SI and psychosis. Of note, pt of questionable historian with freq ED visits with similar CC/presentation in setting of homelessness and ongoing substance use Currently denies SI/HI/AVH although pt p/w baseline thought disorder in setting of untreated schizophrenia due to med noncompliance and ongoing IDU Presently, pt does not show any signs of immediate danger to self or others that would warrant a higher level of care. Thus, pt does not meet criteria for 5150 or involuntary inpatient psych admission as is not DTS, DTO or GD No indication to change current med regimen at this time - will continue olanzapine 7.5 mg bid - emphasized med compliance Primary Diagnosis: Schizophrenia, CUT. Meth/opiate use disorder, moderate/severe. R/o SIPD Plan: Does not warrant invol inpatient psychiatric hospitalization or 5150 hold at this time No acute safety concerns Recommend SW consult to assist pt with any post discharge housing assistance/MH/Substance abuse referrals per pts request Pt can be safely discharged from ED in AM after SW consultation Resume outpatient psychotropic (Olanzapine 7.5 mg bid) - first dose now, second dose tomm AM - med compliance emphasized No med changes or additional meds needed at this time Risks/benefits/alternative treatments discussed, informed consent provided by pt Supportive tx provided Emphasized sleep hygiene, exercise, healthy nutrition, LIMIT caffeine, tobacco, and EtOH intake, ABSTAIN from IDU, and social activation Instructed pt to call [phone] or return to ED if mood symptoms worsen or new onset SI/HI upon discharge Pt verbalized understanding and is receptive to above tx plan This case was discussed with ED nurse/provider and all parties in agreement with above tx plan Floyd Funk MD Plan discussed with: Patient FLOYD FUNK MD Aug 24, 2024 01:17
[2024-08-24] MEDS: OLANZapine 5 MG TAB PO ONE (02:38)
[2024-08-24 04:30] VITALS: PULSE 81; RESP 16; O2SAT 99
[2024-08-24 10:17] VITALS: BP 122/62; PULSE 79; RESP 16; O2SAT 93
== END 2024-08-24 11:17 | disposition home or self-care (01) ==
LOC: ER 19:24
DX: N39.0 Urinary tract infection, site not specified (principal); F15.10 Other stimulant abuse, uncomplicated; F29 Unspecified psychosis not due to a substance or known physiological condition; F41.9 Anxiety disorder, unspecified; F32.A Depression, unspecified; F20.9 Schizophrenia, unspecified; F17.210 Nicotine dependence, cigarettes, uncomplicated; Z59.00 Homelessness unspecified; Z79.899 Other long term (current) drug therapy
CPT/HCPCS: 36415; 74176; 80053; 80307; 80320; 81001; 83690; 84484; 84702; 85025; 96365; 96375; 99285; J0696; J2405; J7030

== ENCOUNTER 2024-08-28 23:24 | Emergency (ER) | payer MEDICAID ==
[~2024-08-28] VITALS: Ht 170.2 cm; Wt 85.2 kg
[~2024-08-28 23:24] MED LIST changes: +CEPH500C PO; +IBUP1TAB5 PO
--- NOTE | 2024-08-29 00:18 | ED.PDOC ---
Psychiatric HPI Comments 34-year-old female came to emergency room for mental health issues. Patient is homeless, and has history of anxiety, depression, schizophrenia, at methamphetamine abuse. Patient coming in stating that she has been unable to sleep for the past few days, claims her children has been kidnapped and that she keeps hearing their voices. With questioned whether she feels suicidal or homicidal, she stated that she wanted to harm herself. Chief Complaint: Mental Health Time Seen by MD: 00:16 Primary Care Provider: Lucero Leyva Notes: Nurses Notes, Director Print Notes, Medications, Allergies Information Source: Patient Severity: Able to Care for Self Timing: Hours Duration: Intermittent Presents with: Depression, Anxiety, Unclear Thinking, Bizarre Behavior, Suicidal Ideation Associated signs and symptoms: Depression, Hopeless, Anxiety, Hallucinations, Amphetamines Review of Systems REVIEW OF SYSTEMS: No fever, no chills, or fatigue HEENT: No sore throat, no earache, no congestion, no neck pain. Cardiac: No chest pain. No palpitations. Lungs: No shortness of breath, no cough. GI: No nausea, no vomiting, no diarrhea, no constipation, no abdominal pain : No dysuria, frequency, or urgency. No hematuria. Musculoskeletal: No joint pain , no joint swelling, no extremity edema. Skin: No rash, no itching. Neuro: No headache, no dizziness, no weakness Vital Signs Vital Signs Date Time Temp Pulse Resp B/P (MAP) Pulse Ox O2 Delivery O2 Flow Rate FiO2 08/29/24 00:02 97.5 85 16 102/59 (73) 100 Physical Exam General: Awake, alert and oriented. No acute distress. Skin: Skin in warm, dry and intact without rashes or lesions. HEENT: The head is normocephalic and atraumatic. Conjunctivae are clear without exudates or hemorrhage. Sclera is non-icteric. Neck: Normal range of motion. No JVD. Cardiac: Regular rate Respiratory: No signs of respiratory distress. No Stridor. Extremities: Upper and lower extremities are atraumatic in appearance without tenderness or deformity. Neurological: The patient is awake, alert and oriented to person, place, and time with normal speech. Speech is clear. There is no facial asymmetry. Psychiatric: No visual or auditory hallucinations. 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 Was a procedure done?: No Psych Differential Dx Psych. Differential Dx: Anxiety, Depression Suicidal Differential Dx: Anxiety, Bipolar Disorder, Depression, Schizoprenia, Substance Abuse X-Ray, Labs, Meds, VS Vital Signs Date Time Temp Pulse Resp B/P (MAP) Pulse Ox O2 Delivery O2 Flow Rate FiO2 08/29/24 00:02 97.5 85 16 102/59 (73) 100 Time of 1ST Reevaluation: 00:13 Reevaluation 1ST: Unchanged Patient Education/Counseling: Diagnosis, Treatment Family Education/Counseling: No Family Present Departure 1 Departure Time of Disposition: 05:05 Impression: Primary Impression: Psychiatric complaint Disposition: 30 STILL A PATIENT Condition: Stable Comments 34-year-old female presents to the emergency department with complaints of being unable to sleep due to thinking about multiple of her children being kidnapped in the distant past, passive suicidal ideation. Patient appears to this emergency department frequently with similar mental health and other complaints. Recent labs reviewed. Will not repeat at this time. Urinalysis and UDS ordered. Patient sleeping without difficulty during the ED observation. Patient medically cleared, signed out to oncoming provider pending tele psychiatric consult. Critical Care Note Critical Care Time?: No Stability Stability form required: No Heart Score Heart Score: Heart Score Response (Comments) Value History N/A 0 EKG N/A 0 Age N/A 0 Risk Factors N/A 0 Troponin N/A 0 Total 0 I personally scribed for ANURADHA THAKKAR MD ([email or web address]) on 08/29/24 at 00:18. Electronically submitted by Gerald Noe ([email or web address]). ANURADHA THAKKAR MD Aug 29, 2024 00:18
[2024-08-29 07:45] VITALS: BP 118/75; PULSE 71; RESP 16; TEMP 97.5; O2SAT 100
[2024-08-29 08:02] LABS: Basophils # (auto) 0 10 ^3/uL (0-0.2); Basophils % (auto) 0.5 % (0.0-2.0); Eosinophils # (auto) 0.1 10 ^3/uL (0-0.8); Eosinophils % (auto) 1.7 % (0.0-7.0); Hematocrit 41.4 % (36.0-46.0); Hemoglobin 13.7 g/dL (12.2-16.2); Lymphocytes # (auto) 2.7 10 ^3/uL (0.4-5.4); Lymphocytes % (auto) 44.5 % (10.0-50.0); Mean Corpuscular Hemoglobin 31.6 pg (28.0-32.0); Mean Corpuscular Hgb Conc. 33.1 g/dL (32.0-36.0); Mean Corpuscular Volume 95.5 fL (80.0-100.0); Monocytes # (auto) 0.4 10 ^3/uL (0-1.3); Monocytes % (auto) 6.6 % (0.0-12.0); Neutrophils # (auto) 2.8 10 ^3/uL (1.6-8.6); Neutrophils % (auto) 46.7 % (37.0-80.0); Nucleated Red Blood Cells % 0.1 %; Platelet Count (auto) 242 10^3/uL (140-450); Red Blood Cells 4.33 10^6/uL (4.0-5.20); Red Cell Distribution Width 15.1 % (11.8-14.3); White Blood Cell 6.1 10^3/uL (4.4-10.8)
[2024-08-29 08:08] LABS: Potassium 4.5 mmol/L (3.5-5.1); Sodium 139 mmol/L (136-145)
[2024-08-29 08:09] LABS: Anion Gap 6 (5-15); Calcium 9.3 mg/dL (8.7-10.4); Carbon Dioxide 24 mmol/L (20-31)
[2024-08-29 08:14] LABS: BUN/Creatinine Ratio 16.7 (10.0-20.0); Blood Urea Nitrogen 14 mg/dL (9-23); Glucose 92 mg/dL (74-106)
[2024-08-29 08:15] LABS: Blood Alcohol < 3.0 mg/dL (<10); Chloride 109 mmol/L (98-107)
[2024-08-29 09:03] LABS: Salicylate < 3.0 mg/dL (-30)
[2024-08-29 09:04] LABS: Acetaminophen < 2.0 UG/ML (10.0-20.0)
--- NOTE | 2024-08-29 12:38 | DVHINCON2 ---
Date of Service if different f: Aug 29, 2024 Consultation (YVONNE) Progress: Somewhat better Labs Laboratory Tests Test 08/29/24 07:49 White Blood Count 6.1 10^3/uL (4.4-10.8) Red Blood Count 4.33 10^6/uL (4.0-5.20) Hemoglobin 13.7 g/dL (12.2-16.2) Hematocrit 41.4 % (36.0-46.0) Mean Corpuscular Volume 95.5 fL (80.0-100.0) Mean Corpuscular Hemoglobin 31.6 pg (28.0-32.0) Mean Corpuscular Hemoglobin Concent 33.1 g/dL (32.0-36.0) Red Cell Distribution Width 15.1 % (11.8-14.3) Platelet Count 242 10^3/uL (140-450) Mean Platelet Volume 8.0 fL (6.9-10.8) Neutrophils (%) (Auto) 46.7 % (37.0-80.0) Lymphocytes (%) (Auto) 44.5 % (10.0-50.0) Monocytes (%) (Auto) 6.6 % (0.0-12.0) Eosinophils (%) (Auto) 1.7 % (0.0-7.0) Basophils (%) (Auto) 0.5 % (0.0-2.0) Neutrophils # (Auto) 2.8 10 ^3/uL (1.6-8.6) Lymphocytes # (Auto) 2.7 10 ^3/uL (0.4-5.4) Monocytes # (Auto) 0.4 10 ^3/uL (0-1.3) Eosinophils # (Auto) 0.1 10 ^3/uL (0-0.8) Basophils # (Auto) 0 10 ^3/uL (0-0.2) Nucleated Red Blood Cells 0.1 % Sodium Level 139 mmol/L (136-145) Potassium Level 4.5 mmol/L (3.5-5.1) Chloride Level 109 mmol/L (98-107) Carbon Dioxide Level 24 mmol/L (20-31) Anion Gap 6 (5-15) Blood Urea Nitrogen 14 mg/dL (9-23) Creatinine 0.84 mg/dL (0.550-1.02) Glomerular Filtration Rate Calc 95 mL/min (>90) BUN/Creatinine Ratio 16.7 (10.0-20.0) Serum Glucose 92 mg/dL (74-106) Calcium Level 9.3 mg/dL (8.7-10.4) Beta HCG, Quantitative 0.2 mIU/mL (1.5-4.2) Salicylates Level < 3.0 mg/dL (-30) Acetaminophen Level < 2.0 UG/ML (10.0-20.0) Plasma/Serum Blood Alcohol < 3.0 mg/dL (<10) Appetite: Fair Side effects of medications: No Appearance: Older than stated age, Disheveled Psychomotor activity: Calm Behavioral: Withdrawn, Other (somnolent) Eye contact: Avoids, Limited Speech: Slowed, Mumbled Affect: Flat Mood: Depressed Thought processes: Linear/Goal-directed, [place] Thought content: Delusions (persecution), Hallucinations (auditory) Suicidal ideations: Present (active) Homicidal ideations: Absent Orientation: Person, Situation Memory intact: Poor Intellect: Average Abstractability: [place] Concentration: Poor Attention: Poor Judgement: Poor Insight: Poor Vitals Vital Signs Date Time Temp Pulse Resp B/P (MAP) Pulse Ox O2 Delivery O2 Flow Rate FiO2 08/29/24 07:45 71 16 100 Room Air* 0 21 08/29/24 07:45 97.5 118/75 (89) 97.5 Treatment plan discussed: With staff Medication adjusted: Yes Labs ordered: No Psychotherapy provided: No Type: Voluntary Diagnosis: Substance induced depressive disorder. Substance induced psychotic disorder. Rule out schizophrenia. Plan : Pt is continuing to endorse SI without plan along with psychosis. Pt is very somnolent, seems to be coming down from methamphetamine use still. Pt noted that meds have helped with these thoughts and mood before. Pt is willing to take something like Risperdal for treatment of her symptoms. In her current state she may not be able to manage own affairs in the community, but if she feels back to baseline in a few hours after a single dose of Risperdal 2 mg PO daily, then she can discharge to community with OP follow-up with a script. Alternatively, if symptoms do not remit, voluntary hospitalization to inpatient psych should be started. If pt is symptomatic and declining voluntary hospitalization, then 5150 should be initiated. History of Present Illness Reason for Consult : SI/Psychosis. HPI : The pt admitted yesterday for psychosis and mood changes in the setting of stimulant use. Pt is homeless and was experiencing delusions and hallucinations of her children and their voices. Per nursing the pt appears to be close to baseline. The pt is quite somnolent when an interview is attempted. She keeps falling asleep while sitting in a chair. She says that she is still hearing voices of her kids are drowning and no body helps him. Pt is hearing voices of them dying. Pt admits to using meth yesterday. Pt says she hallucinations are made worse with the meth but are always there. Pt says that she wants to kill herself and . She doesn't know how she feels like that. Says she attempted suicide a long time ago, was going to stab herself. Past Psychiatric History : Pt says she has been admitted to inpatient psych before, doesn't know when the last time was, doesn't know how many times. Does not take meds for mood or thoughts. No OP provider. Past Medical History : Denies. Social History : Says she lives with her son and daughter and father in law. Does not work. Substance use: Uses smokes cigarettes and uses meth does not know how much or how often. Assessment/Diagnosis/Plan Reviewed: Care Plan, Medications JULIA BERTRAND MD Aug 29, 2024 12:38
[2024-08-29] MEDS: risperiDONE 1 MG TAB PO ONE (12:50)
[2024-08-29 14:49] LABS: Barbiturate Scree,Urine Neg (NEGATIVE)
[2024-08-29 14:51] LABS: Amphetamine Screen, Urine Pos (NEGATIVE); Benzodiazephine Screen, Urine Neg (NEGATIVE); Cannabinoid Screen, Urine Neg (NEGATIVE); Cocaine Screen, Urine Neg (NEGATIVE); Opiate Scree,Urine Neg (NEGATIVE); Phencyclidine Screen, Urine Neg (NEGATIVE)
== END 2024-08-29 18:36 | disposition home or self-care (01) ==
LOC: ER 23:24
DX: F41.9 Anxiety disorder, unspecified (principal); F20.9 Schizophrenia, unspecified; F17.210 Nicotine dependence, cigarettes, uncomplicated; F12.90 Cannabis use, unspecified, uncomplicated; F15.90 Other stimulant use, unspecified, uncomplicated; F32.A Depression, unspecified; F99 Mental disorder, not otherwise specified; Z59.00 Homelessness unspecified; Z00.8 Encounter for other general examination; Z79.899 Other long term (current) drug therapy
CPT/HCPCS: 36415; 80048; 80307; 80320; 80329; 84702; 85025

== ENCOUNTER 2024-10-22 16:26 | Emergency (ER) | payer MEDICAID ==
[~2024-10-22] VITALS: Ht 170.2 cm; Wt 86.5 kg
--- NOTE | 2024-10-22 16:45 | ED.PDOC ---
Altered Mental Status HPI Comments 34-year-old homeless female brought in by EMS presents with a chief complaint of ALOC secondary to methamphetamine use. Patient was found in the [employer] and refused to leave which staff then called EMS. Patient endorsed to EMS that she smoked meth and is well-known by staff to be a meth user. Patient is able to respond with her name, but is having rambling speech at this time. Per EMS, patient was noted to be hitting her head against the wall and acting bizarre at the store. Patient endorses meth use today. Patient was last seen here in August 2024 with the following HPI: 34-year-old female came to emergency room for mental health issues. Patient is homeless, and has history of anxiety, depression, schizophrenia, at methamphetamine abuse. Patient coming in stating that she has been unable to sleep for the past few days, claims her children has been kidnapped and that she keeps hearing their voices. With questioned whether she feels suicidal or homicidal, she stated that she wanted to harm herself. PMHx: Anxiety, Depression, Schizophrenia, Methamphetamine Abuse PSHx: Unknown HPI: Poor Historian. REVIEW OF SYSTEMS: Limited given the patient's altered mental status with suspected recent history of drug abuse. CONSTITUTIONAL: Denies acute: fever, diaphoresis, chills, generalized weakness. HEAD: Denies acute: headache, photophobia Eyes: Denies acute: Double vision, vision loss, eye pain, eye discharge. EARS: Denies acute: tinnitus, hearing loss, ear discharge, ear pain, THROAT: Denies acute: sore throat, swelling, difficulty swallowing , pain with swallowing, change in voice. NECK: Denies acute: neck pain, neck swelling, stiff neck. HEART: Denies acute : chest pain, palpitations, LUNGS: Denies acute: SOB, wheezing, cough, hemoptysis ABDOMEN: Denies acute: abdominal pain, Nausea, Vomiting, diarrhea, melena , hematemesis, hematochezia SKIN: Denies acute: rash, redness, lesions, itchiness. EXTREMITIES: Denies acute: calf pain, numbness, tingling, weakness, denies pain in extremity. Denies acute: Low back pain. Neuro: Denies acute: focal neurological deficit, motor or sensory focal neurological deficit, tremors, seizure like activity, confusion, dizziness, change in mental status, loss of bowel or bladder function, cauda equina like symptoms. : Denies acute: dysuria, hematuria, flank pain, increase in urinary frequency. PSYCH: Denies acute: hallucination, suicidal ideation, homicidal ideation. FEMALE: Denies acute: abnormal vaginal bleeding, foul odor, unusual discharge. PHYSICAL EXAM: General: ----mild----acute distress, awake and alert. Head: normocephalic, atraumatic. Eyes:, no erythema, no purulent discharge, no proptosis, no icterus. Heart: regular rate, regular rhythm, no significant murmur appreciated. Lungs: no apparent respiratory distress, No wheezing, no rhonchi, no crackles. No stridors Clear to auscultation bilaterally. Abdomen: non tender to palpation, non distended, soft, no guarding, no rebound, + bowel sounds. Neuro: Awake, Alert, oriented to name, able to state her name. Skin: no petechia, no purpura, no cyanosis, non-pale, not jaundice. Lower extremities: --no - Pitting edema no deformity, no focal swelling, no calf TTP. Patient arrives in four point restraint moves all four extremities. Face: no apparent facial droop. Ambulating in the ED independently. ED COURSE: Time Seen by : 16:35 Primary Care Provider: UNKOWN Reviewed Notes: Nurses Notes, Medications, Allergies Allergies: Coded Allergies: NO KNOWN ALLERGIES (Unverified , 08/03/21) Home Meds Active Scripts Ibuprofen Micronized (Ibuprofen) 600 Mg Tab, 600 MG PO Q6HP PRN, #30 TAB prn pain, take with food Prov:EDUARDO MEDEROS MD 08/23/24 Cephalexin Monohydrate (Cephalexin) 500 Mg Cap, 1 CAP PO QID for 10 Days, #40 CAP Prov:EDUARDO MEDEROS MD 08/23/24 Metronidazole Vaginal (METROGEL VAGINAL) 1 Applic Ap, 1 APPLIC VG QPM for 5 Days, #70 GRAMS 0 Refills Prov:JUAN LEONARDO MEDICAL SERVICE TECHNICIAN 12/21/23 Naproxen (Naproxen) 500 Mg Tab, 500 MG PO BID, #20 TAB Prov:CYNDIE DAS MERON 08/21/23 Clindamycin Hcl (Clindamycin Hcl) 300 Mg Cap, 1 CAP PO TID, #30 CAP Prov:CYNDIE DAS PA 08/21/23 Benzonatate (Benzonatate) 100 Mg Cap, 100 MG PO TID for 10 Days, #30 CAP 0 Refills Prov:JUAN LEONARDO MEDICAL SERVICE TECHNICIAN 08/20/23 Amoxicillin & Pot Clavulanate (AUGMENTIN TABLET) 875 Mg Tb, 875 MG PO BID for 7 Days, #14 TAB 0 Refills Prov:JUAN LEONARDO MEDICAL SERVICE TECHNICIAN 08/20/23 Olanzapine (OLANZAPINE) 5 Mg Tab, 5 MG PO BID for 30 Days, #60 TAB Prov:LARRY VERMA MD 01/22/23 Information Source: Emergency Med Personnel Past Medical History PAST MEDICAL HISTORY: Anxiety, Depression, Schizophrenia Surgical History: Unobtainable 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 Was a procedure done?: No Differential Diagnosis (ALOC) Differential Diagnosis: Dehydration, Hypoglycemia, DKA, Sepsis, Hypoxemia, Seizure, Closed Head Injury, CVA, Drug Overdose, ETOH Intoxication, Heart Failure X-Ray, Labs, Meds, VS Vital Signs Date Time Temp Pulse Resp B/P (MAP) Pulse Ox O2 Delivery O2 Flow Rate FiO2 10/22/24 22:19 98.3 83 18 117/73 (88) 98 98.3 10/22/24 17:28 98.0 100 16 121/73 (89) 98 98.0 Lab Test 10/22/24 16:59 Range/Units White Blood Count 11.4 H 4.4-10.8 10^3/uL Red Blood Count 4.14 4.0-5.20 10^6/uL Hemoglobin 12.7 12.2-16.2 g/dL Hematocrit 37.7 36.0-46.0 % Mean Corpuscular Volume 90.9 80.0-100.0 fL Mean Corpuscular Hemoglobin 30.7 28.0-32.0 pg Mean Corpuscular Hemoglobin Concent 33.8 32.0-36.0 g/dL Red Cell Distribution Width 13.8 11.8-14.3 % Platelet Count 292 140-450 10^3/uL Mean Platelet Volume 8.3 6.9-10.8 fL Neutrophils (%) (Auto) 70.8 37.0-80.0 % Lymphocytes (%) (Auto) 18.9 10.0-50.0 % Monocytes (%) (Auto) 9.4 0.0-12.0 % Eosinophils (%) (Auto) 0.3 0.0-7.0 % Basophils (%) (Auto) 0.6 0.0-2.0 % Neutrophils # (Auto) 8.0 1.6-8.6 10 ^3/uL Lymphocytes # (Auto) 2.1 0.4-5.4 10 ^3/uL Monocytes # (Auto) 1.1 0-1.3 10 ^3/uL Eosinophils # (Auto) 0 0-0.8 10 ^3/uL Basophils # (Auto) 0.1 0-0.2 10 ^3/uL Nucleated Red Blood Cells 0.1 % Sodium Level 138 136-145 mmol/L Potassium Level 4.1 3.5-5.1 mmol/L Chloride Level 103 98-107 mmol/L Carbon Dioxide Level 24 20-31 mmol/L Anion Gap 11 5-15 Blood Urea Nitrogen 19 9-23 mg/dL Creatinine 1.11 H 0.550-1.02 mg/dL Glomerular Filtration Rate Calc 68 >90 mL/min BUN/Creatinine Ratio 17.1 10.0-20.0 Serum Glucose 94 74-106 mg/dL Lactic Acid Level 0.8 0.4-2.0 mmol/L Calcium Level 10.1 8.7-10.4 mg/dL Total Bilirubin 0.7 0.2-1.0 mg/dL Aspartate Amino Transferase (AST) 21 13-40 U/L Alanine Aminotransferase (ALT) 12 7-40 U/L Alkaline Phosphatase 59 46-116 U/L Creatine Kinase 120 34-145 U/L Total Protein 7.8 5.7-8.2 g/dL Albumin 4.7 3.2-4.8 g/dL Current Medications Medications (Trade) Dose Ordered Sig/Desiree Route Start Time Stop Time Status Last Admin Lorazepam (Ativan Inj) 1 mg ONCE ONCE IM 10/22/24 22:30 10/22/24 22:31 DC 10/22/24 22:39 Time of 1ST Reevaluation: 17:00 Reevaluation 1ST: Unchanged Patient Education/Counseling: Diagnosis, Treatment Family Education/Counseling: No Family Present Assigned to DrVerena The care of this patient was transitioned to my colleague Dr. Dennison. Patient was awaiting tele psych and social service evaluation and medical clearance. Patient has not been able to give us a urine sample yet. Patient's feet in the gurney instead. Were unable to start an IV on her because she is moving too much. Patient is stocking to a number of people around her that we can not see. Patient ambulating in and out of the ER. She may likely elope. Departure 1 Departure Time of Disposition: 23:41 Impression: Primary Impression: Methamphetamine abuse Additional Impression: Patient needs psychiatric hold for evaluation Disposition: 30 STILL A PATIENT Admit to: Tele Condition: Guarded Discharged With: Self Critical Care Note Critical Care Time?: No I personally scribed for DEIRDRE RICHARD DO ([email or web address]) on 10/22/24 at 16:45. Electronically submitted by Keyshawn Mittal ([email or web address]). I personally scribed for DEIRDRE RICHARD DO ([email or web address]) on 10/22/24 at 18:57. Electronically submitted by Keyshawn Mittal ([email or web address]). DEIRDRE RICHARD DO October 22, 2024 16:45
[2024-10-22 17:22] LABS: Basophils # (auto) 0.1 10 ^3/uL (0-0.2); Basophils % (auto) 0.6 % (0.0-2.0); Eosinophils # (auto) 0 10 ^3/uL (0-0.8); Eosinophils % (auto) 0.3 % (0.0-7.0); Hematocrit 37.7 % (36.0-46.0); Hemoglobin 12.7 g/dL (12.2-16.2); Lymphocytes # (auto) 2.1 10 ^3/uL (0.4-5.4); Lymphocytes % (auto) 18.9 % (10.0-50.0); Mean Corpuscular Hemoglobin 30.7 pg (28.0-32.0); Mean Corpuscular Hgb Conc. 33.8 g/dL (32.0-36.0); Mean Corpuscular Volume 90.9 fL (80.0-100.0); Monocytes # (auto) 1.1 10 ^3/uL (0-1.3); Monocytes % (auto) 9.4 % (0.0-12.0); Neutrophils % (auto) 70.8 % (37.0-80.0); Nucleated Red Blood Cells % 0.1 %; Platelet Count (auto) 292 10^3/uL (140-450); Red Blood Cells 4.14 10^6/uL (4.0-5.20); Red Cell Distribution Width 13.8 % (11.8-14.3); White Blood Cell 11.4 10^3/uL (4.4-10.8)
[2024-10-22 17:38] LABS: Alanine Aminotransferase 12 U/L (7-40); Albumin 4.7 g/dL (3.2-4.8); Alkaline Phosphatase 59 U/L (46-116); Anion Gap 11 (5-15); Aspartate Aminotransferase 21 U/L (13-40); BUN/Creatinine Ratio 17.1 (10.0-20.0); Blood Urea Nitrogen 19 mg/dL (9-23); Calcium 10.1 mg/dL (8.7-10.4); Carbon Dioxide 24 mmol/L (20-31); Chloride 103 mmol/L (98-107); Glucose 94 mg/dL (74-106); Potassium 4.1 mmol/L (3.5-5.1); Sodium 138 mmol/L (136-145); Total Protein 7.8 g/dL (5.7-8.2)
[2024-10-22 17:39] LABS: Bilirubin, Total 0.7 mg/dL (0.2-1.0); Creatine Kinase IFCC 120 U/L (34-145)
[2024-10-22] MEDS: LORazepam 2MG/ML-1ML VIAL IM ONE (22:39)
--- NOTE | 2024-10-22 23:43 | DVHINCON2 ---
Date of Service if different f: October 22, 2024 Time of Service: 23:43 Consult Consult Note PSYCHIATRY ED NEW CONSULT HPI: 34 yo pt with PPH of schizophrenia and severe PSA presents to ED BIBA for safety, psychiatric stabilization and possible med initiation in setting of homelessness, med noncompliance, ongoing meth use, and psychosis. Psychiatry consulted for safety evaluation and recommendations in context of current presentation. Of note, pt of questionable historian with freq ED visits with similar CC/presentation in setting of homelessness and ongoing substance/meth use Per pt, reports NC/NT AH, irritability, disorganized speech, RTIS with some baseline though disorder. Denies depressed mood, hopelessness, helplessness, loss of interest, or anhedonia. Adamantly denies SI/HI. No overt manic, major depressive, or panic symptoms noted at present although continues to have baseline thought disorder in setting of untreated schizophrenia and ongoing meth use Pt currently does not have psychiatrist/therapist out in community. Currently rx'd olanzapine 7.5 mg bid, with some hx of med noncompliance, last took med several weeks ago Continues to self medicating mood symptoms with daily meth, thc and fentanyl use including IVDU, last used meth prior to admission, long hx of meth and THC dependence Never , two children who live with her parents, unemployed, currently/chronically homeless, limited support system noted. Unknown trauma hx. Unknown FH No acute medical issues, NKDA Does have remote hx of suicide attempts via drug OD resulting in prior psych ho spitalizations including recent hospitalization for drug induced psychosis. Currently denies SI/HI. Some history of unprovoked aggression, anger outbursts, emotional dysregulation, mood reactivity in context of meth intoxication. Does not have access to firearms. Identifies self/children as PPF. No safety concerns noted during encounter. MSE: General Appearance/Behavior: Alert and partially awake; appears bit older than stated age, motor restlessness, marginally fair grooming and hygiene; calm and cooperative, intermittent eye contact Speech: bit slurred and incomprehensible at times Thought Process: impoverished, concrete, bit impaired/tangential Thought Content: Abnormal Thoughts and Perceptions: RTIS Homicidality / Violent Thoughts: None Suicidality: denies SI Hallucinations: None during assessment Delusions: some paranoia delusions Obsessions /compulsions : None Judgment and Insight: marginally fair/poor/limited Mood & Affect: "okay" with mood-congruent, appropriate Orientation: oriented to person, place only Attention/Concentration: somewhat impaired Memory: grossly intact Assessment: 34 yo F pt with PPH of schizophrenia and severe PSA presents to ED BIBA for safety, psychiatric stabilization and possible med initiation/optimization in setting of homelessness, med noncompliance, ongoing meth use, and psychosis. Of note, pt of questionable historian with freq ED visits with similar CC/presentation in setting of homelessness and ongoing meth use Currently denies SI/HI/AVH although pt p/w baseline thought disorder in setting of untreated schizophrenia due to med noncompliance and ongoing meth/IDU Presently, pt does not show any signs of immediate danger to self or others that would warrant a higher level of care. Thus, pt does not meet criteria for 5150 or involuntary inpatient psych admission as is not DTS, DTO or GD No indication to change current med regimen at this time - will continue olanzapine 7.5 mg bid - emphasized med compliance Primary Diagnosis: Schizophrenia, CUT. Meth/opiate use disorder, moderate/severe. R/o SIPD Plan: Does not warrant invol inpatient psychiatric hospitalization or 5150 hold at this time No acute safety concerns Recommend SW consult to assist pt with any post discharge housing assistance/MH/Substance abuse referrals per pts request Pt can be safely discharged from ED in AM after SW consultation Resume outpatient psychotropic (Olanzapine 7.5 mg bid) - first dose now, second dose tomm AM - med compliance emphasized No med changes or additional meds needed at this time Risks/benefits/alternative treatments discussed, informed consent provided by pt Supportive tx provided Emphasized sleep hygiene, exercise, healthy nutrition, LIMIT caffeine, tobacco, and EtOH intake, ABSTAIN from IDU, and social activation Instructed pt to call [phone] or return to ED if mood symptoms worsen or new onset SI/HI upon discharge Pt verbalized understanding and is receptive to above tx plan This case was discussed with ED nurse/provider and all parties in agreement with above tx plan Floyd Funk MD Plan discussed with: Patient FLOYD FUNK MD October 22, 2024 23:43
--- NOTE | 2024-10-23 00:59 | DVH ---
EXAM: XY CHEST PORTABLE CLINICAL HISTORY: altered/psych TECHNIQUE: Single AP view of the chest WID: COMPARISON: XY CHEST PORTABLE on DOS: 04/29/23 FINDINGS: Lines and tubes: None Chest: The heart size and pulmonary vasculature is within normal limits. No pleural effusion, pneumothorax, or consolidation. The osseous structures are grossly intact. IMPRESSION: No acute cardiopulmonary abnormality.
[2024-10-23] MEDS: OLANZapine 5 MG TAB PO ONE (06:12)
[2024-10-23] MEDS: SODIUM CHLORIDE 0.9% 1,000 ML IV ONE (06:15)
[2024-10-23 09:12] LABS: Urine Bacteria FEW /hpf (None Seen); Urine Blood Negative /uL (Negative); Urine Color Yellow (Yellow); Urine Mucus FEW (None Seen); Urine Protein, UAD TRACE (Negative); Urine Specific Gravity 1.024 (1.001-1.035); Urine Squamous Epithelial Cell FEW /hpf (<5); Urine Urobilinogen Normal (Negative); Urine WBC 43 /HPF (0-5); Urine pH 5.5 (5.0-9.0)
[2024-10-23 09:14] LABS: Cannabinoid Screen, Urine Neg (NEGATIVE); Phencyclidine Screen, Urine Neg (NEGATIVE); Urine Clarity Cloudy (Clear)
[2024-10-23 09:18] LABS: Amphetamine Screen, Urine Pos (NEGATIVE); Barbiturate Scree,Urine Neg (NEGATIVE); Benzodiazephine Screen, Urine Neg (NEGATIVE); Cocaine Screen, Urine Neg (NEGATIVE); Opiate Scree,Urine Neg (NEGATIVE)
[2024-10-23 10:34] VITALS: BP 100/68; PULSE 92; RESP 15; TEMP 98.9; O2SAT 98
== END 2024-10-23 10:42 | disposition home or self-care (01) ==
LOC: ER 16:26 → EDBD 16:26 → ER 10-23 10:42
DX: F19.10 Other psychoactive substance abuse, uncomplicated (principal); F41.9 Anxiety disorder, unspecified; F20.9 Schizophrenia, unspecified; F12.90 Cannabis use, unspecified, uncomplicated; F17.210 Nicotine dependence, cigarettes, uncomplicated; Z59.00 Homelessness unspecified; Z79.899 Other long term (current) drug therapy
CPT/HCPCS: 36415; 71045; 80053; 80307; 81001; 81025; 82550; 83605; 85025; 96372; 99284; J2060

== ENCOUNTER 2024-10-23 13:13 | Emergency (ER) | payer MEDICAID ==
[~2024-10-23] VITALS: Ht 172.7 cm; Wt 72.5 kg
--- NOTE | 2024-10-23 13:25 | ED.PDOC ---
History of Present Illness HPI Comments 34 year old female JUANITA presents to the ED with chief complaint of methamphetamine abuse/well check. EMS reports patient was witnessed to have defecated on a street and had EMS called for assistance. EMS relays that the patient asked to be taken to the ED and upon arrival for a sandwich and drink. Patient denies any symptoms at this time. Time Seen by MD: 13:20 Primary Care Provider: UNKNOWN Reviewed Notes: Nurses Notes, Architectural Inspector Notes, Medications, Allergies Allergies: Coded Allergies: NO KNOWN ALLERGIES (Unverified , 08/03/21) Home Meds Active Scripts Ibuprofen Micronized (Ibuprofen) 600 Mg Tab, 600 MG PO Q6HP PRN, #30 TAB prn pain, take with food Prov:EDUARDO MEDEROS MD 08/23/24 Cephalexin Monohydrate (Cephalexin) 500 Mg Cap, 1 CAP PO QID for 10 Days, #40 CAP Prov:EDUARDO MEDEROS MD 08/23/24 Metronidazole Vaginal (METROGEL VAGINAL) 1 Applic Ap, 1 APPLIC VG QPM for 5 Days, #70 GRAMS 0 Refills Prov:JUAN LEONARDO WOODWIND INSTRUMENT REPAIRER 12/21/23 Naproxen (Naproxen) 500 Mg Tab, 500 MG PO BID, #20 TAB Prov:CYNDIE DAS 08/21/23 Clindamycin Hcl (Clindamycin Hcl) 300 Mg Cap, 1 CAP PO TID, #30 CAP Prov:CYNDIE DAS 08/21/23 Benzonatate (Benzonatate) 100 Mg Cap, 100 MG PO TID for 10 Days, #30 CAP 0 Refills Prov:JUAN LEONARDO WOODWIND INSTRUMENT REPAIRER 08/20/23 Amoxicillin & Pot Clavulanate (AUGMENTIN TABLET) 875 Mg Tb, 875 MG PO BID for 7 Days, #14 TAB 0 Refills Prov:JUAN LEONARDO WOODWIND INSTRUMENT REPAIRER 08/20/23 Olanzapine (OLANZAPINE) 5 Mg Tab, 5 MG PO BID for 30 Days, #60 TAB Prov:LARRY VREMA MD 01/22/23 Information Source: Patient, Emergency Med Personnel Mode of Arrival: Ambulatory Severity: None Timing: Hours Duration: Since onset Prehospital treatment: None Past Medical History PAST MEDICAL HISTORY: Anxiety, Depression, Schizophrenia Surgical History: Denies all surgeries PIPE JEEPER History: Denies all PIPE JEEPER Hx Family History Family History: Reviewed,noncontributory to illness Social History Smoker: Cigarettes Alcohol: Occasionally Drugs: Marijuana, Methamphetamine Lives In: Homeless Constitutional: denies: chills, diaphoresis, fatigue, fever, malaise, sweats, weakness, others EENTM: denies: blurred vision, double vision, ear bleeding, ear discharge, ear drainage, ear pain, ear ringing, eye pain, eye redness, hearing loss, mouth pain, mouth swelling, nasal discharge, nose bleeding, nose congestion, nose pain, photophobia, tearing, throat pain, throat swelling, voice changes, others Respiratory: denies: cough, hemoptysis, orthopnea, SOB at rest, shortness of breath, SOB with excertion, stridor, wheezing, others Cardiovascular: denies: chest pain, dizzy spells, diaphoresis, Dyspnea on exertion, edema, irregular heart beat, left arm pain, lightheadedness, palpitations, PND, syncope, others Gastrointestinal: denies: abdomen distended, abdominal pain, blood streaked bowels, constipated, diarrhea, dysphagia, difficulty swallowing, hematemesis, melena, nausea, poor appetite, poor fluid intake, rectal bleeding, rectal pain, vomiting, others Genitourinary: denies: abnormal vagina bleeding, burning, dyspareunia, dysuria, flank pain, frequency, hematuria, incontinence, pain, , vagina discharge, urgency, others Neurological: denies: dizziness, fainting, headache, left sided numbness, left sided weakness, numbness, paresthesia, pre-existing deficit, right sided numbness, right sided weakness, seizure, speech problems, tingling, tremors, weakness, others Musculoskeletal: denies: back pain, gout, joint pain, joint swelling, muscle pain, muscle stiffness, neck pain, others Integumetry: denies: bruises, change in color, change in hair/nails, dryness, laceration, lesions, lumps, rash, wounds, others Allergic/Immunocompromised: denies: Difficulty Healing, Frequent Infections, Hives, Itching, others Hematologic/Lymphatic: denies: anemia, blood clots, easy bleeding, easy bruising, swollen glands, others Endocrine: denies: excessive hunger, excessive sweating, excessive thirst, excessive urination, flushing, intolerance to cold, intolerance to heat, unexplained weight gain, unexplained weight loss, others Psychiatric: denies: anxiety, bipolar disorder, depression, hopeless, panic disorder, schizophrenia, sleepless, suicidal, others All Other Systems: Reviewed and Negative Physical Exam General Appearance: No Apparent Distress, Normal, Other (Asleep, woken with tactile stimuli) HEENT: Normal ENT Inspection, PERRL/EOMI Neck: Full Range of Motion, Non-Tender, Normal, Normal Inspection Respiratory: Chest Non-Tender, Lungs Clear, No Accessory Muscle Use, No Respiratory Distress, Normal Breath Sounds Cardiovascular: No Edema, No JVD, No Murmur, No Gallop, Normal Peripheral Pulses, Regular Rate/Rhythm Breast Exam: Deferred Gastrointestinal: No Organomegaly, Non Tender, No Pulsatile Mass, Normal Bowel Sounds, Soft Genitalia: Deferred Pelvic: Deferred Rectal: Deferred Extremities: No calf tenderness, Normal capillary refill, Normal inspection, Normal range of motion, Non-tender, No pedal edema Musculoskeletal : Apperance: Normal Neurologic: Alert, 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 Was a procedure done?: No Differential Dx Considerations may include: Methamphetamine abuse, gravely ill, acute psychosis, homelessness, SI, HI, depression. malingering Time of 1ST Reevaluation: 14:20 Reevaluation 1ST: Unchanged Patient Education/Counseling: Diagnosis, Treatment, Prognosis, Need For Follow Up Family Education/Counseling: No Family Present Additional Information Previous visits: 10/22/24 for methamphetamine abuse The following tests were ordered, and results were reviewed by me: None Additional Information was gathered from interviewing the following independent historians: None I reviewed and agreed with the following test results read by other providers: None I discussed treatment and results with medical personnel and: patient Comprehensive systems review obtained and negative except for what is stated in the HPI. pt is sleeping, but easily wakes up and asks for a sandwich and something to drink. she [id number] positive for meth, as she admitted to have used and was cleared for discharge by psych. she was given homeless resources, since we do not have SW on on weekends. however, [place] defec[place] and unable to get to any shelters. we will have her be observed in the ER until she is more awake, or have SW help her secure resources for her homeless state. i will sign out to Dr Juma curry change Departure 1 Departure Time of Disposition: 13:40 Impression: Primary Impression: Methamphetamine abuse Additional Impression: Homelessness Disposition: 30 STILL A PATIENT Condition: Stable Discharged With: Self Critical Care Note Critical Care Time?: No Stability Stability form required: No Heart Score Heart Score: Heart Score Response (Comments) Value History N/A 0 EKG N/A 0 Age N/A 0 Risk Factors N/A 0 Troponin N/A 0 Total 0 I personally scribed for SANTIAGO SAENZ MD ([email or web address]) on 10/23/24 at 13:25. Elect ronically submitted by Ray Mon ([email or web address]). SANTIAGO SAENZ MD October 23, 2024 13:25
--- NOTE | 2024-10-23 23:22 | DVHINCON2 ---
Date of Service if different f: October 23, 2024 Time of Service: 23:21 Consult Consult Note PSYCHIATRY ED NEW CONSULT HPI: 34 yo pt with PPH of schizophrenia and severe PSA presents to ED BIBA for safety, psychiatric stabilization and possible med initiation in setting of homelessness, med noncompliance, ongoing meth use, and psychosis. Psychiatry consulted for safety evaluation and recommendations in context of current presentation. Of note, pt of questionable historian with freq ED visits with similar CC/presentation in setting of homelessness and ongoing substance/meth use Pt last seen by provider on 10/22 at which time pt was discharged from ED with housing resources, however soon upon d/c pt was witnessed to have defecated on street and smeared feces on self Pt reports ongoing NC/NT AH, irritability, disorganized speech, RTIS with some baseline though disorder in setting of untreated schizophrenia and ongoing meth use . Also reports SI with no plan/intent - "i am just tired of living" Pt currently does not have psychiatrist/therapist out in community. Currently rx'd olanzapine 7.5 mg bid, with some hx of med noncompliance, last took med several weeks ago Continues to self medicating mood symptoms with daily meth, thc and fentanyl use including IVDU, last used meth prior to admission, long hx of meth and THC dependence Never , two children who live with her parents, unemployed, currently/chronically homeless, limited support system noted. Unknown trauma hx. Unknown FH No acute medical issues, NKDA Does have remote hx of suicide attempts via drug OD resulting in prior psych hospitalizations including recent hospitalization for drug induced psychosis. Some history of unprovoked aggression, anger outbursts, emotional dysregulation, mood reactivity in context of meth intoxication. Does not have access to firearms MSE: General Appearance/Behavior: Alert and partially awake; appears bit older than stated age, motor restlessness, marginally fair/poor grooming and hygiene; calm and cooperative, intermittent eye contact Speech: bit slurred and incomprehensible at times Thought Process: impoverished, concrete, bit impaired/tangential Thought Content: Abnormal Thoughts and Perceptions: RTIS Homicidality / Violent Thoughts: None Suicidality: + SI Hallucinations: None during assessment Delusions: some paranoia delusions Obsessions /compulsions : None Judgment and Insight: marginally fair/poor/limited Mood & Affect: "okay" with mood-congruent, appropriate Orientation: oriented to person, place only Attention/Concentration: somewhat impaired Memory: grossly intact Assessment: 34 yo F pt with PPH of schizophrenia and severe PSA presents to ED BIBA for safe ty, psychiatric stabilization and possible med initiation/optimization in setting of homelessness, med noncompliance, ongoing meth use, and psychosis. Of note, pt of questionable historian with freq ED visits with similar CC/presentation in setting of homelessness and ongoing meth use Pt last seen by provider on 10/22 at which time pt was discharged from ED with housing resources, however soon upon d/c pt was witnessed to have defecated on street and smeared feces on self. UDS + meth. Pt chronically homeless and is unable to care for self with poor/limited insight and judgement. Also expressing SI with no plan Also not compliant on Olanzapine with ongoing severe meth use resulting in multiple ED admissions. No outpt MH services at present Hence, pt is appropriate for inpatient psychiatric admission for safety, psychiatric stabilization, and possible medication initiation/optimization. Pt willing to transfer to inpt psych facility voluntarily but recommend 5150 DTS/GD hold Primary Diagnosis: Schizophrenia unspecified. Meth use d/o, moderate/severe Recommend 5150 DTS/GD and transfer to inpt psych facility for higher level of care per pts request 1:1 sitter is recommended Recommend continuation of current outpt med regimen - olanzapine 7.5 mg bid - first dose now Risks/benefits/alternative treatments discussed, informed consent provided by pt Reconsult telepsych services if pt requests to be discharged from ED prior to transfer/upon hold expiration Pt verbalized understanding and is receptive to above tx plan This case was discussed with ED nurse/provider and all parties in agreement with above tx plan Floyd Funk MD Plan discussed with: Patient FLOYD FUNK MD October 23, 2024 23:22
[2024-10-24 19:57] VITALS: BP 146/74; PULSE 74; RESP 18; TEMP 98.2; O2SAT 98
== END 2024-10-23 21:34 | disposition short-term general hospital (02) ==
LOC: EDBD 13:13 → ER 13:16
DX: F15.10 Other stimulant abuse, uncomplicated (principal); F41.9 Anxiety disorder, unspecified; F32.9 Major depressive disorder, single episode, unspecified; F20.9 Schizophrenia, unspecified; F17.210 Nicotine dependence, cigarettes, uncomplicated; Z59.00 Homelessness unspecified; Z79.899 Other long term (current) drug therapy

== ENCOUNTER 2024-11-18 01:45 | Emergency (ER) | payer MEDICAID ==
[~2024-11-18] VITALS: Ht 175.3 cm; Wt 72.7 kg
--- NOTE | 2024-11-18 02:09 | ED.PDOC ---
History of Present Illness HPI Comments 34 y/o F, with a history of Anxiety, Depression, Schizophrenia, and Polysubstance abuse, is BIBA for c/o abdominal pain. Per EMS report, a gas scrubber operator called on patient's behalf after endorsing on having abdominal pain, while wondering outside. On scene, patient was noncooperative with EMS in providing further information on her pain. Vitals were noted to have been stable and within normal limits, with no abnormalities except for equal and round but dilated to 4-5mm in diameters. At time of assessment, patient still remains a poor historian and only comments on having allergies to methamphetamine without any endorsement of any recent use. Further history is limited, due to patient's current condition and absence of family/child care aide historians. Chief Complaint: Mental Health Time Seen by MD: 01:50 Primary Care Provider: UNKNOWN Reviewed Notes: Nurses Notes, Building Tech Notes, Medications, Allergies Allergies: Coded Allergies: Amphetamines (Verified Allergy, Unknown, 11/18/24) Home Meds Active Scripts Ibuprofen Micronized (Ibuprofen) 600 Mg Tab, 600 MG PO Q6HP PRN, #30 TAB prn pain, take with food Prov:EDUARDO MEDEROS MD 08/23/24 Cephalexin Monohydrate (Cephalexin) 500 Mg Cap, 1 CAP PO QID for 10 Days, #40 CAP Prov:EDUARDO MEDEROS MD 08/23/24 Metronidazole Vaginal (METROGEL VAGINAL) 1 Applic Ap, 1 APPLIC VG QPM for 5 Days, #70 GRAMS 0 Refills Prov:JUAN LEONARDO DIRECTOR OF SOCIAL MEDIA MARKETING 12/21/23 Naproxen (Naproxen) 500 Mg Tab, 500 MG PO BID, #20 TAB Prov:CYNDIE DAS 08/21/23 Clindamycin Hcl (Clindamycin Hcl) 300 Mg Cap, 1 CAP PO TID, #30 CAP Prov:CYNDIE DAS 08/21/23 Benzonatate (Benzonatate) 100 Mg Cap, 100 MG PO TID for 10 Days, #30 CAP 0 Refills Prov:JUAN LEONARDO DIRECTOR OF SOCIAL MEDIA MARKETING 08/20/23 Amoxicillin & Pot Clavulanate (AUGMENTIN TABLET) 875 Mg Tb, 875 MG PO BID for 7 Days, #14 TAB 0 Refills Prov:JORDENJUAN LAURA NP 08/20/23 Olanzapine (OLANZAPINE) 5 Mg Tab, 5 MG PO BID for 30 Days, #60 TAB Prov:LARRY VERMA MD 01/22/23 Information Source: Patient, Emergency Med Personnel Mode of Arrival: EMS Severity: Moderate Timing: Hours Duration: Since onset Prehospital treatment: 12 Lead EKG, Services Delivery Driver Past Medical History PAST MEDICAL HISTORY: Anxiety, Depression, Schizophrenia Surgical History: Denies all surgeries OYSTER PLANTER History: Denies all OYSTER PLANTER Hx Family History Family History: Reviewed,noncontributory to illness Social History Smoker: Cigarettes Alcohol: Occasionally Drugs: Marijuana, Methamphetamine Lives In: Homeless All Other Systems: Reviewed and Negative (Methamphetamine abuse, gravely ill, acute psychosis, homelessness, SI, HI, depression. malingering) Physical Exam General Appearance: No Apparent Distress, Normal, Other (Unkempt appearance ) HEENT: Normal ENT Inspection, Pharynx Normal, TMs Normal Neck: Full Range of Motion, Non-Tender, Normal, Normal Inspection Respiratory: Chest Non-Tender, Lungs Clear, No Accessory Muscle Use, No Respiratory Distress, Normal Breath Sounds Cardiovascular: No Edema, No JVD, No Murmur, No Gallop, Normal Peripheral Pulses, Regular Rate/Rhythm Breast Exam: Deferred Gastrointestinal: No Organomegaly, Non Tender, No Pulsatile Mass, Normal Bowel Sounds, Soft Genitalia: Deferred Pelvic: Deferred Rectal: Deferred Extremities: No calf tenderness, Normal capillary refill, Normal inspection, Normal range of motion, Non-tender, No pedal edema Musculoskeletal : Apperance: Normal Neurologic: Alert, data processing auditor II-XII nml as Tested, No Motor Deficits, No Sensory De ficits, Speech Problem (pressured speech ) Cerebellar Function: Normal Reflexes: Normal Skin: Dry, Normal Color, Warm Lymphatic: No Adenopathy Was a procedure done? Was a procedure done?: No Differential Dx Considerations may include: Methamphetamine abuse, gravely ill, acute psychosis, homelessness, SI, HI, depression. malingering, gastritis, among others X-Ray, Labs, Meds, VS Vital Signs Date Time Temp Pulse Resp B/P (MAP) Pulse Ox O2 Delivery O2 Flow Rate FiO2 11/18/24 05:41 97.8 95 18 124/95 (105) 98 97.8 11/18/24 02:36 110 20 100 Room Air* 0 21 11/18/24 02:35 97.7 110 20 135/90 (105) 100 97.7 11/18/24 01:49 97.6 110 20 135/90 (105) 100 97.6 Time of 1ST Reevaluation: 02:20 Reevaluation 1ST: Unchanged Patient Education/Counseling: Treatment Family Education/Counseling: No Family Present Additional Information Previous visits reviewed: October 22 and 2024 encounters for ftt and methamphetamine abuse The following tests were ordered, and results were reviewed by me: N/A Additional Information was gathered from interviewing the following independent historians: EMS I reviewed and agreed with the following test results read by other providers: N/A I discussed treatment and results with medical personnel and: patient Departure 1 Departure Time of Disposition: 05:45 (Patient presenting with a worsening mental status likely secondary to polysubstance abuse. We will medically clear patient now psychiatry evaluate.) Impression: Primary Impression: Polysubstance abuse Additional Impression: Metabolic encephalopathy Disposition: 07 LEFT AWOL/ELOPED Condition: Serious Critical Care Note Critical Care Time?: No Stability Stability form required: No Heart Score Heart Score: Heart Score Response (Comments) Value History N/A 0 EKG N/A 0 Age N/A 0 Risk Factors N/A 0 Troponin N/A 0 Total 0 I personally scribed for GENARO ASHLEY MD ([email or web address]) on 11/18/24 at 02:09. E lectronically submitted by Dru Farrell ([email or web address]). GENARO ASHLEY MD November 18, 2024 02:09
[2024-11-18 02:36] VITALS: PULSE 110; RESP 20; O2SAT 100
[2024-11-18] MEDS: LORazepam 0.5 MG TAB PO ONE (02:42)
[2024-11-18 05:41] VITALS: BP 124/95; PULSE 95; RESP 18; TEMP 97.8; O2SAT 98
== END 2024-11-18 13:32 | disposition left against medical advice (07) ==
LOC: ER 01:45
DX: G93.41 Metabolic encephalopathy (principal); F19.10 Other psychoactive substance abuse, uncomplicated; F41.9 Anxiety disorder, unspecified; F32.A Depression, unspecified; F20.9 Schizophrenia, unspecified; F17.210 Nicotine dependence, cigarettes, uncomplicated; F12.90 Cannabis use, unspecified, uncomplicated; F15.90 Other stimulant use, unspecified, uncomplicated; Z79.899 Other long term (current) drug therapy; Z59.00 Homelessness unspecified; Z88.8 Allergy status to other drugs, medicaments and biological substances

== ENCOUNTER 2024-11-18 22:26 | Emergency (ER) | payer MEDICAID ==
[~2024-11-18] VITALS: Ht 175.3 cm; Wt 72.7 kg
[2024-11-18] MEDS ORDERED: diphenhdrAMINE HCL 25 MG CAP PO ONE (23:30)
--- NOTE | 2024-11-18 23:43 | ED.PDOC ---
Psychiatric HPI Comments 35-year-old female who came to ER for suicide ideations. Patient is homeless, has history of polysubstance abuse, anxiety, depression, and schizophrenia. Admits that she has been using methamphetamines all day. Has been having auditory hallucinations off her son talking to her and suicidal ideations. Patient is a very poor informant at this time of care due to her current mental status due to her drug use Chief Complaint: Mental Health Time Seen by MD: 23:42 Primary Care Provider: UNKNOWN Reviewed Notes: Nurses Notes Information Source: Patient Mode of Arrival: Ambulatory Severity: Unable to Care for Self, Unable to Control Self Severity of Pain: Moderate Severity of Mental Status: Moderate Severity of Symptoms: Moderate Timing: Minutes Duration: Intermittent Prehospital treatment: None Presents with: Depression, Anxiety, Unclear Thinking, Bizarre Behavior, Suicidal Ideation Circumstance: Medical Clearance, Causing a Disturbance Current substance abuse: Amphetamines Stressors: Homeless History of: Depression, Anxiety, Schizophrenia, Suicidal Attempt, Substance Abuse Associated signs and symptoms: Depression, Hopeless, Anxiety, Hallucinations, Amphetamines Past Medical History PAST MEDICAL HISTORY: Anxiety, Depression, Schizophrenia Past Medical History (Other): Suicidal ideations, polysubstance abuse Surgical History: Denies all surgeries FILLER WIPER History: Denies all FILLER WIPER Hx Family History Family History: Reviewed,noncontributory to illness Social History Smoker: Cigarettes Alcohol: Occasionally Drugs: Marijuana, Methamphetamine Lives In: Homeless Constitutional: denies: chills, diaphoresis, fatigue, fever, malaise, sweats, weakness, others EENTM: denies: blurred vision, double vision, ear bleeding, ear discharge, ear drainage, ear pain, ear ringing, eye pain, eye redness, hearing loss, mouth pain, mouth swelling, nasal discharge, nose bleeding, nose congestion, nose pain, photophobia, tearing, throat pain, throat swelling, voice changes, others Respiratory: denies: cough, hemoptysis, orthopnea, SOB at rest, shortness of breath, SOB with excertion, stridor, wheezing, others Cardiovascular: denies: chest pain, dizzy spells, diaphoresis, Dyspnea on exertion, edema, irregular heart beat, left arm pain, lightheadedness, palpit ations, PND, syncope, others Gastrointestinal: denies: abdomen distended, abdominal pain, blood streaked b owels, constipated, diarrhea, dysphagia, difficulty swallowing, hematemesis, melena, nausea, poor appetite, poor fluid intake, rectal bleeding, rectal pain, vomiting, others Genitourinary: denies: abnormal vagina bleeding, burning, dyspareunia, dysuria, flank pain, frequency, hematuria, incontinence, pain, , vagina discharge, urgency, others Neurological: denies: dizziness, fainting, headache, left sided numbness, left sided weakness, numbness, paresthesia, pre-existing deficit, right sided numbness, right sided weakness, seizure, speech problems, tingling, tremors, weakness, others Musculoskeletal: denies: back pain, gout, joint pain, joint swelling, muscle pain, muscle stiffness, neck pain, others Integumetry: denies: bruises, change in color, change in hair/nails, dryness, laceration, lesions, lumps, rash, wounds, others Allergic/Immunocompromised: denies: Difficulty Healing, Frequent Infections, Hives, Itching, others Hematologic/Lymphatic: denies: anemia, blood clots, easy bleeding, easy brui sing, swollen glands, others Endocrine: denies: excessive hunger, excessive sweating, excessive thirst, ex cessive urination, flushing, intolerance to cold, intolerance to heat, unexplained weight gain, unexplained weight loss, others Psychiatric: reports: anxiety, depression, schizophrenia, suicidal; denies: bipolar disorder, hopeless, panic disorder, sleepless, others Physical Exam General Appearance: No Apparent Distress, Normal HEENT: Normal ENT Inspection, Pharynx Normal, TMs Normal Neck: Full Range of Motion, Non-Tender, Normal, Normal Inspection Respiratory: Chest Non-Tender, Lungs Clear, No Accessory Muscle Use, No Respiratory Distress, Normal Breath Sounds Cardiovascular: No Edema, No JVD, No Murmur, No Gallop, Normal Peripheral Pulses, Regular Rate/Rhythm Breast Exam: Deferred Gastrointestinal: No Organomegaly, Non Tender, No Pulsatile Mass, Normal Bowel Sounds, Soft Genitalia: Deferred Pelvic: Deferred Rectal: Deferred Extremities: No calf tenderness, Normal capillary refill, Normal inspection, Normal range of motion, Non-tender, No pedal edema Musculoskeletal : Apperance: Normal Neurologic: Alert, electrician third II-XII nml as Tested, No Motor Deficits, Normal Affect, Normal Mood, No Sensory Deficits Cerebellar Function: Normal Reflexes: Normal Skin: Dry, Normal Color, Warm Lymphatic: No Adenopathy Was a procedure done? Was a procedure done?: No Psych Differential Dx Suicidal Differential Dx: Alcohol Abuse, Anxiety, Depression, Schizoprenia, Substance Abuse X-Ray, Labs, Meds, VS Vital Signs Date Time Temp Pulse Resp B/P (MAP) Pulse Ox O2 Delivery O2 Flow Rate FiO2 11/19/24 09:12 97.5 80 12 104/75 (85) 98 97.5 11/19/24 08:20 Room Air* 0 21 11/18/24 23:48 18 18 118/91 (100) 100 Current Medications Medications (Trade) Dose Ordered Sig/Desiree Route Start Time Stop Time Status Last Admin Haloperidol Lactate (Haldol) 10 mg ONCE ONCE IM 11/19/24 00:45 11/19/24 00:46 DC 11/19/24 00:57 Time of 1ST Reevaluation: 23:38 Reevaluation 1ST: Unchanged Time of 2ND Reevaluation: 10:02 Reevaluation 2ND: Resolved Patient Education/Counseling: Diagnosis, Treatment, Prognosis, Need For Follow Up Family Education/Counseling: No Family Present Additional Information pt is awake, alert, without complaints and is ready to be discharged Departure 1 Departure Time of Disposition: 10:03 Impression: Primary Impression: Methamphetamine abuse Disposition: 01 HOME / SELF CARE / HOMELESS Condition: Good Discharged With: Self Critical Care Note Critical Care Time?: No Stability Stability form required: No Heart Score Heart Score: Heart Score Response (Comments) Value History N/A 0 EKG N/A 0 Age N/A 0 Risk Factors N/A 0 Troponin N/A 0 Total 0 I personally scribed for GENARO ASHLEY MD ([email or web address]) on 11/18/24 at 23:43. Electronically submitted by Gerald Noe ([email or web address]). I personally scribed for GENARO ASHLEY MD ([email or web address]) on 11/19/24 at 00:24. Electronically submitted by Gerald Noe ([email or web address]). GENARO ASHLEY MD November 18, 2024 23:43 SANTIAGO SAENZ MD November 19, 2024 10:03
[2024-11-19] MEDS: HALOPERIDOL LACTATE 5 MG/ML INJ VIAL IM ONE (00:57)
[2024-11-19 09:12] VITALS: BP 104/75; PULSE 80; RESP 12; TEMP 97.5; O2SAT 98
== END 2024-11-19 10:46 | disposition home or self-care (01) ==
LOC: ER 22:26
DX: F15.10 Other stimulant abuse, uncomplicated (principal); R45.851 Suicidal ideations; F41.9 Anxiety disorder, unspecified; F20.9 Schizophrenia, unspecified; F32.A Depression, unspecified; F17.210 Nicotine dependence, cigarettes, uncomplicated; F19.11 Other psychoactive substance abuse, in remission
CPT/HCPCS: 96372; 99284; J1630

== ENCOUNTER 2024-11-29 23:55 | Emergency (ER) | payer MEDICAID ==
[~2024-11-29] VITALS: Ht 167.6 cm; Wt 72.6 kg
--- NOTE | 2024-11-30 00:04 | ED.PDOC ---
History of Present Illness HPI Comments 34 year old female with a Hx of Anxiety, Depression, Schizophrenia, and Methamphetamine abuse was BIBA for the c/c of Chest pain. Per EMS, pt is a Methamphetamine addict, and frequent flyer. Per EMS pt states that her chest feels "hard". Pt is noted to be a poor historian, talking to self, and not responding or cooperating with physical exam. No other associated symptoms, modifiers, recent injuries or sick contacts present at this time. Time Seen by MD: 23:58 Primary Care Provider: UNKNOWN Reviewed Notes: Nurses Notes, Forming Acid Dumper Notes, Medications, Allergies Allergies: Coded Allergies: Amphetamines (Verified Allergy, Unknown, 11/18/24) Home Meds Active Scripts Ibuprofen Micronized (Ibuprofen) 600 Mg Tab, 600 MG PO Q6HP PRN, #30 TAB prn pain, take with food Prov:EDUARDO MEDEROS MD 08/23/24 Cephalexin Monohydrate (Cephalexin) 500 Mg Cap, 1 CAP PO QID for 10 Days, #40 CAP Prov:EDUARDO MEDEROS MD 08/23/24 Metronidazole Vaginal (METROGEL VAGINAL) 1 Applic Ap, 1 APPLIC VG QPM for 5 Days, #70 GRAMS 0 Refills Prov:JUAN LEONARDO BLOG WRITER 12/21/23 Naproxen (Naproxen) 500 Mg Tab, 500 MG PO BID, #20 TAB Prov:CYNDIE DAS 08/21/23 Clindamycin Hcl (Clindamycin Hcl) 300 Mg Cap, 1 CAP PO TID, #30 CAP Prov:CYNDIE DAS 08/21/23 Benzonatate (Benzonatate) 100 Mg Cap, 100 MG PO TID for 10 Days, #30 CAP 0 Refills Prov:JUAN LEONARDO BLOG WRITER 08/20/23 Amoxicillin & Pot Clavulanate (AUGMENTIN TABLET) 875 Mg Tb, 875 MG PO BID for 7 Days, #14 TAB 0 Refills Prov:JUAN LEONARDO BLOG WRITER 08/20/23 Olanzapine (OLANZAPINE) 5 Mg Tab, 5 MG PO BID for 30 Days, #60 TAB Prov:LARRY VERMA MD 01/22/23 Information Source: Patient, Emergency Med Personnel Mode of Arrival: EMS Severity: Moderate Timing: Hours Duration: Since onset, Hours Prehospital treatment: None Vital Signs Vital Signs Date Time Temp Pulse Resp B/P (MAP) Pulse Ox O2 Delivery O2 Flow Rate FiO2 11/30/24 03:47 99 11/30/24 03:30 98.1 18 127/88 (101) 99 98.1 Physical Exam General: Awake, Poor Historian, Talking to self. Skin: Skin in warm, dry and intact. Appropriate color for ethnicity. HEENT: The head is normocephalic and atraumatic. Conjunctivae are clear without exudates or hemorrhage. Sclera is non-icteric. EOM are intact. No signs of nystagmus. Eyelids are normal in appearance without swelling or lesions. Oral mucosa is pink and moist Neck: The neck is supple with normal range of motion. No JVD. Cardiac: Heart rate and rhythm are normal. No murmurs, gallops, or rubs are auscultated. "Hard Chest" Respiratory: No signs of respiratory distress. Lung sounds are clear in all lobes bilaterally without rales, rhonchi, or wheezes. Abdominal: Abdomen is soft, non-tender without distention, guarding or rigidity. Bowel sounds are present and normoactive in all four quadrants. Extremities: Upper and lower extremities are atraumatic in appearance without deformity or edema. Neurological: The patient is awake, alert and oriented to person, place, and time with normal speech. Speech is clear. There is no facial asymmetry. Psychiatric: Appropriate mood and affect. Good judgement and insight. Review of Systems: REVIEW OF SYSTEMS: No fever, no chills, or fatigue HEENT: No sore throat, no earache, no congestion, no neck pain. Cardiac: No chest pain. No palpitations. "hard chest" Lungs: No shortness of breath, no cough. GI: No nausea, no vomiting, no diarrhea, no constipation, no abdominal pain : No dysuria, frequency, or urgency. No hematuria. Musculoskeletal: No joint pain , no joint swelling, no extremity edema. Skin: No rash, no itching. Neuro: No headache, no dizziness, no weakness Unable to obtain due to being Altered, and unwilling to cooperate with physical exam. Past Medical History PAST MEDICAL HISTORY: Anxiety, Depression, Schizophrenia Surgical History: Denies all surgeries INFORMATION SYSTEMS AUDITOR History: Denies all INFORMATION SYSTEMS AUDITOR Hx Family History Family History: Reviewed,noncontributory to illness Social History Smoker: Cigarettes Alcohol: Occasionally Drugs: Marijuana, Methamphetamine Lives In: Homeless Was a procedure done? Was a procedure done?: No Differential Dx Considerations may include: Differential diagnoses considered include acute ischemic coronary syndrome, aortic dissection, cardiac tamponade, mediastinitis, pulmonary embolus, pneumothorax, tension pneumothorax, esophageal rupture, coronary artery vasospasm, myocarditis, pericarditis, pneumonia, pulmonary edema, esophageal tear, pancreatitis, aortic stenosis, dilated cardiomyopathy, hypertrophic cardiomyopathy, mitral valve prolapse, malignancy, pleuritis, pneumomediastinum, primary pulmonary hypertension, cholecystitis, esophageal spasm, esophagus, gas tritis, GERD, peptic ulcer disease, costochondritis, fibromyalgia, rib fracture, herpes zoster, radicular syndromes, thoracic outlet syndrome, somatization. X-Ray, Labs, Meds, VS Vital Signs Date Time Temp Pulse Resp B/P (MAP) Pulse Ox O2 Delivery O2 Flow Rate FiO2 11/30/24 03:47 99 11/30/24 03:30 98.1 99 18 127/88 (101) 99 98.1 11/30/24 00:49 80 11/30/24 00:03 98.1 101 18 132/84 (100) 98 98.1 11/29/24 23:55 95 Lab Test 11/30/24 00:09 Range/Units White Blood Count 7.4 4.4-10.8 10^3/uL Red Blood Count 3.97 L 4.0-5.20 10^6/uL Hemoglobin 12.3 12.2-16.2 g/dL Hematocrit 36.4 36.0-46.0 % Mean Corpuscular Volume 91.7 80.0-100.0 fL Mean Corpuscular Hemoglobin 31.0 28.0-32.0 pg Mean Corpuscular Hemoglobin Concent 33.8 32.0-36.0 g/dL Red Cell Distribution Width 14.8 H 11.8-14.3 % Platelet Count 242 140-450 10^3/uL Mean Platelet Volume 8.0 6.9-10.8 fL Neutrophils (%) (Auto) 60.9 37.0-80.0 % Lymphocytes (%) (Auto) 31.2 10.0-50.0 % Monocytes (%) (Auto) 6.7 0.0-12.0 % Eosinophils (%) (Auto) 0.7 0.0-7.0 % Basophils (%) (Auto) 0.5 0.0-2.0 % Neutrophils # (Auto) 4.5 1.6-8.6 10 ^3/uL Lymphocytes # (Auto) 2.3 0.4-5.4 10 ^3/uL Monocytes # (Auto) 0.5 0-1.3 10 ^3/uL Eosinophils # (Auto) 0.1 0-0.8 10 ^3/uL Basophils # (Auto) 0 0-0.2 10 ^3/uL Nucleated Red Blood Cells 0.0 % Sodium Level 141 136-145 mmol/L Potassium Level 3.4 L 3.5-5.1 mmol/L Chloride Level 105 98-107 mmol/L Carbon Dioxide Level 27 20-31 mmol/L Anion Gap 9 5-15 Blood Urea Nitrogen 8 L 9-23 mg/dL Creatinine 0.98 0.550-1.02 mg/dL Glomerular Filtration Rate Calc 79 >90 mL/min BUN/Creatinine Ratio 8.2 L 10.0-20.0 Serum Glucose 97 74-106 mg/dL Calcium Level 9.3 8.7-10.4 mg/dL Total Bilirubin 0.6 0.2-1.0 mg/dL Aspartate Amino Transferase (AST) 16 13-40 U/L Alanine Aminotransferase (ALT) 13 7-40 U/L Alkaline Phosphatase 52 46-116 U/L Troponin I High Sensitivity < 3 L </=34 ng/L Total Protein 6.8 5.7-8.2 g/dL Albumin 4.3 3.2-4.8 g/dL Plasma/Serum Blood Alcohol < 3.0 <10 mg/dL Time of 1ST Reevaluation: 00:28 Reevaluation 1ST: Unchanged Patient Education/Counseling: Need For Follow Up Family Education/Counseling: No Family Present Departure 1 Departure Time of Disposition: 03:14 Impression: Primary Impression: Chest pain Disposition: 01 HOME / SELF CARE / HOMELESS Condition: Stable Additional Instructions: ED DISCHARGE INSTRUCTIONS Instructions: Please read all instructions provided in this packet carefully. Although you have been discharged from the Emergency Department, this does not mean that you have a "clean bill of health". No definitive diagnosis for your symptoms has been made today. It is possible that you are in the process of developing a serious illness. This is why you must return to the ED without fail if any new or worsening symptoms (especially if your symptoms include chest p ain, trouble breathing, abdominal pain, fever, headache, confusion, trouble seeing, or trouble walking) It is also very important that you see a primary care doctor within the next 3-5 days to follow up. If you are unable to get an appointment, return to the ED for re-evaluation. CHEST PAIN EDUCATION There are many things that can cause chest pain. Some are not serious and will get better on their own in a few days. But some kinds of chest pain need more testing and treatment. Your doctor may have recommended a follow-up visit in the next few days. If you are not getting better, you may need more tests or treatment. Even though your doctor has released you, you still need to watch for any problems. The doctor carefully checked you, but sometimes problems can develop later. If you have new symptoms or if your symptoms do not get better, get medical care right away. If you have worse or different chest pain or pressure that lasts more than 5 minutes or you passed out (lost consciousness), call 911 or seek other emergency help right away. A medical visit is only one step in your treatment. Even if you feel better, you still need to do what your doctor recommends, such as going to all suggested follow-up appointments and taking medicines exactly as directed. This will help you recover and help prevent future problems. How can you care for yourself at home? Rest until you feel better. Take your medicine exactly as prescribed. Call your doctor if you think you are having a problem with your medicine. Do not drive after taking a prescription pain medicine. When should you call for help? Call 911 if: You passed out (lost consciousness). You have severe difficulty breathing. You have symptoms of a heart attack. These may include: Chest pain or pressure, or a strange feeling in your chest. Sweating. Shortness of breath. Nausea or vomiting. Pain, pressure, or a strange feeling in your back, neck, jaw, or upper belly or in one or both shoulders or arms. Lightheadedness or sudden weakness. A fast or irregular heartbeat. After you call 911, the paint line operator may tell you to chew 1 adult-strength or 2 to 4 low-dose aspirin. Wait for an ambulance. Do not try to drive yourself. Call your doctor now or seek immediate medical care if: You have any trouble breathing. You have new or different chest pain. You are dizzy or lightheaded, or you feel like you may faint. Watch closely for changes in your health, and be sure to contact your doctor if you do not get better as expected. Current as of: January 21, 2024 Author: [email or web address] Staff? Comments 34-year-old female with a history of methamphetamine abuse and chest pain. EKG negative for signs of ischemia. High sensitivity troponin negative. Presentation not suggestive of acute coronary syndrome, pulmonary embolism or aortic dissection. Patient improved at time of discharge. No hypoxia, respiratory distress or dyspnea at discharge. Patient able to ambulate without difficulty. Critical Care Note Critical Care Time?: No Stability Stability form required: No Heart Score Heart Score: Heart Score Response (Comments) Value History Slightly Suspicious 0 EKG Normal 0 Age <45 0 Risk Factors 1 or 2 risk factors 1 Troponin Normal limit 0 Total 1 I personally scribed for ANURADHA THAKKAR MD ([email or web address]) on 11/30/24 at 00:04. Electronically submitted by James Sin ([email or web address]). ANURADHA THAKKAR MD Nov 30, 2024 00:04
[2024-11-30 00:29] LABS: Basophils # (auto) 0 10 ^3/uL (0-0.2); Basophils % (auto) 0.5 % (0.0-2.0); Eosinophils # (auto) 0.1 10 ^3/uL (0-0.8); Eosinophils % (auto) 0.7 % (0.0-7.0); Hematocrit 36.4 % (36.0-46.0); Hemoglobin 12.3 g/dL (12.2-16.2); Lymphocytes # (auto) 2.3 10 ^3/uL (0.4-5.4); Lymphocytes % (auto) 31.2 % (10.0-50.0); Mean Corpuscular Hgb Conc. 33.8 g/dL (32.0-36.0); Mean Corpuscular Volume 91.7 fL (80.0-100.0); Monocytes # (auto) 0.5 10 ^3/uL (0-1.3); Monocytes % (auto) 6.7 % (0.0-12.0); Neutrophils # (auto) 4.5 10 ^3/uL (1.6-8.6); Neutrophils % (auto) 60.9 % (37.0-80.0); Platelet Count (auto) 242 10^3/uL (140-450); Red Blood Cells 3.97 10^6/uL (4.0-5.20); Red Cell Distribution Width 14.8 % (11.8-14.3); White Blood Cell 7.4 10^3/uL (4.4-10.8)
[2024-11-30 00:43] LABS: Alanine Aminotransferase 13 U/L (7-40); Albumin 4.3 g/dL (3.2-4.8); Alkaline Phosphatase 52 U/L (46-116); Anion Gap 9 (5-15); BUN/Creatinine Ratio 8.2 (10.0-20.0); Calcium 9.3 mg/dL (8.7-10.4); Carbon Dioxide 27 mmol/L (20-31); Chloride 105 mmol/L (98-107); Glucose 97 mg/dL (74-106); Sodium 141 mmol/L (136-145); Total Protein 6.8 g/dL (5.7-8.2)
[2024-11-30 00:44] LABS: Bilirubin, Total 0.6 mg/dL (0.2-1.0)
--- NOTE | 2024-11-30 00:50 | ECG ---
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
[2024-11-30 01:01] LABS: Blood Urea Nitrogen 8 mg/dL (9-23); Potassium 3.4 mmol/L (3.5-5.1)
[2024-11-30 01:44] LABS: Aspartate Aminotransferase 16 U/L (13-40)
[2024-11-30 02:04] LABS: Blood Alcohol < 3.0 mg/dL (<10)
[2024-11-30 03:30] VITALS: BP 127/88; RESP 18; TEMP 98.1; O2SAT 99
[2024-11-30] MEDS: POTASSIUM CHL 20 Meq TABLET PO ONE (03:31)
[2024-11-30 03:47] VITALS: PULSE 99
--- NOTE | 2024-11-30 09:35 | ECG ---
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
== END 2024-11-30 03:50 | disposition home or self-care (01) ==
LOC: ER 23:55 → EDBD 23:55 → ER 11-30 03:38
DX: R07.89 Other chest pain (principal); F41.9 Anxiety disorder, unspecified; F32.A Depression, unspecified; F20.9 Schizophrenia, unspecified; F17.210 Nicotine dependence, cigarettes, uncomplicated; Z79.899 Other long term (current) drug therapy; Z88.8 Allergy status to other drugs, medicaments and biological substances
CPT/HCPCS: 36415; 80053; 80320; 84484; 85025; 93005

== ENCOUNTER 2024-11-30 03:52 | Emergency (ER) | payer MEDICAID ==
[~2024-11-30] VITALS: Ht 167.6 cm; Wt 72.6 kg
--- NOTE | 2024-11-30 06:54 | ED.PDOC ---
Psychiatric HPI Comments 34 y/o F, with PMHx of anxiety, schizophrenia, bipolar disorder, and depression presents to the ED for CC of hallucinations. Patient states, she has been having auditory hallucinations onset, today following drinking heavily (11/30/24). Patient reports smoking tobacco, drinking ETOH, and using illicit street drugs specifically methamphetamines. Patient denies suicidal ideation, homicidal ideation, or visual hallucinations. No other symptoms or modifying factors present at this time. Chief Complaint: Hallucinations Time Seen by MD: 06:15 Primary Care Provider: UNKNOWN Reviewed Notes: Nurses Notes, Medications, Allergies Mode of Arrival: Ambulatory Severity: Able to Care for Self Severity of Pain: None Severity of Mental Status: Moderate Severity of Symptoms: Moderate Timing: Days Duration: Since onset Prehospital treatment: None Presents with: Unclear Thinking Ingestion: Drug(s) Ingested Circumstance: None Current substance abuse: ETOH, Amphetamines Stressors: None History of: Depression, Anxiety, Schizophrenia, Bipolar Quality: Hallucinations Location: None Location of pain or injury: None Associated signs and symptoms: Marijuana, Amphetamines Past Medical History PAST MEDICAL HISTORY: Anxiety, Depression, Schizophrenia Past Medical History (Other): Bipolar disorder Surgical History: Denies all surgeries 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 Family History Family History: Reviewed,noncontributory to illness Social History Smoker: Cigarettes Alcohol: Occasionally Drugs: Marijuana, Methamphetamine Lives In: Homeless Constitutional: denies: chills, diaphoresis, fatigue, fever, malaise, sweats, weakness, others EENTM: denies: blurred vision, double vision, ear bleeding, ear discharge, ear drainage, ear pain, ear ringing, eye pain, eye redness, hearing loss, mouth pain, mouth swelling, nasal discharge, nose bleeding, nose congestion, nose pain, photophobia, tearing, throat pain, throat swelling, voice changes, others Respiratory: denies: cough, hemoptysis, orthopnea, SOB at rest, shortness of breath, SOB with excertion, stridor, wheezing, others Cardiovascular: denies: chest pain, dizzy spells, diaphoresis, Dyspnea on exertion, edema, irregular heart beat, left arm pain, lightheadedness, palpitations, PND, syncope, others Gastrointestinal: denies: abdomen distended, abdominal pain, blood streaked bowels, constipated, diarrhea, dysphagia, difficulty swallowing, hematemesis, melena, nausea, poor appetite, poor fluid intake, rectal bleeding, rectal pain, vomiting, others Genitourinary: denies: abnormal vagina bleeding, burning, dyspareunia, dysuria, flank pain, frequency, hematuria, incontinence, pain, , vagina discharge, urgency, others Neurological: denies: dizziness, fainting, headache, left sided numbness, left sided weakness, numbness, paresthesia, pre-existing deficit, right sided numbness, right sided weakness, seizure, speech problems, tingling, tremors, weakness, others Musculoskeletal: denies: back pain, gout, joint pain, joint swelling, muscle pain, muscle stiffness, neck pain, others Integumetry: denies: bruises, change in color, change in hair/nails, dryness, laceration, lesions, lumps, rash, wounds, others Allergic/Immunocompromised: denies: Difficulty Healing, Frequent Infections, Hives, Itching, others Hematologic/Lymphatic: denies: anemia, blood clots, easy bleeding, easy bruising, swollen glands, others Endocrine: denies: excessive hunger, excessive sweating, excessive thirst, excessive urination, flushing, intolerance to cold, intolerance to heat, unexplained weight gain, unexplained weight loss, others Psychiatric: reports: others (Auditory hallucinations); denies: anxiety, bipolar disorder, depression, hopeless, panic disorder, schizophrenia, sleepless, suicidal All Other Systems: Reviewed and Negative Physical Exam General Appearance: No Apparent Distress, Normal HEENT: Normal ENT Inspection, Pharynx Normal, TMs Normal Neck: Full Range of Motion, Non-Tender, Normal, Normal Inspection Respiratory: Chest Non-Tender, Lungs Clear, No Accessory Muscle Use, No Respiratory Distress, Normal Breath Sounds Cardiovascular: No Edema, No Murmur, No Gallop, Normal Peripheral Pulses, Regular Rate/Rhythm Breast Exam: Deferred Gastrointestinal: No Organomegaly, Non Tender, No Pulsatile Mass, Normal Bowel Sounds, Soft Genitalia: Deferred Pelvic: Deferred Rectal: Deferred Extremities: No calf tenderness, Normal capillary refill, Normal inspection, Normal range of motion, Non-tender, No pedal edema Musculoskeletal : Apperance: Normal Neurologic: Alert, fish worm grower II-XII nml as Tested, No Motor Deficits, No Sensory Deficits, Other (auditory hallicinations) Cerebellar Function: Normal Reflexes: Normal Skin: Dry, Normal Color, Warm Lymphatic: No Adenopathy Was a procedure done? Was a procedure done?: No Psych Differential Dx Psych. Differential Dx: Anxiety, Bipolar Disorder, Depression, Schizoprenia OD Differential Dx: Substance Abuse X-Ray, Labs, Meds, VS Vital Signs Date Time Temp Pulse Resp B/P (MAP) Pulse Ox O2 Delivery O2 Flow Rate FiO2 11/30/24 10:39 Room Air* 0 21 11/30/24 10:39 98.1 76 16 117/88 (98) 94 98.1 11/30/24 04:33 97.5 99 16 127/88 (101) 99 97.5 Lab Test 11/30/24 11:25 11/30/24 10:59 Range/Units White Blood Count 7.2 4.4-10.8 10^3/uL Red Blood Count 4.20 4.0-5.20 10^6/uL Hemoglobin 13.0 12.2-16.2 g/dL Hematocrit 38.5 36.0-46.0 % Mean Corpuscular Volume 91.5 80.0-100.0 fL Mean Corpuscular Hemoglobin 31.0 28.0-32.0 pg Mean Corpuscular Hemoglobin Concent 33.8 32.0-36.0 g/dL Red Cell Distribution Width 14.8 H 11.8-14.3 % Platelet Count 263 140-450 10^3/uL Mean Platelet Volume 8.3 6.9-10.8 fL Neutrophils (%) (Auto) 62.9 37.0-80.0 % Lymphocytes (%) (Auto) 30.8 10.0-50.0 % Monocytes (%) (Auto) 4.7 0.0-12.0 % Eosinophils (%) (Auto) 1.0 0.0-7.0 % Basophils (%) (Auto) 0.6 0.0-2.0 % Neutrophils # (Auto) 4.5 1.6-8.6 10 ^3/uL Lymphocytes # (Auto) 2.2 0.4-5.4 10 ^3/uL Monocytes # (Auto) 0.3 0-1.3 10 ^3/uL Eosinophils # (Auto) 0.1 0-0.8 10 ^3/uL Basophils # (Auto) 0 0-0.2 10 ^3/uL Nucleated Red Blood Cells 0.1 % Sodium Level 143 136-145 mmol/L Potassium Level 3.6 3.5-5.1 mmol/L Chloride Level 106 98-107 mmol/L Carbon Dioxide Level 28 20-31 mmol/L Anion Gap 9 5-15 Blood Urea Nitrogen 8 L 9-23 mg/dL Creatinine 0.93 0.550-1.02 mg/dL Glomerular Filtration Rate Calc 84 >90 mL/min BUN/Creatinine Ratio 8.6 L 10.0-20.0 Serum Glucose 82 74-106 mg/dL Calcium Level 10.3 8.7-10.4 mg/dL Salicylates Level < 3.0 -30 mg/dL Acetaminophen Level < 2.0 L 10.0-20.0 UG/ML Plasma/Serum Blood Alcohol < 3.0 <10 mg/dL Urine Color Yellow Yellow Urine Clarity Turbid H Clear Urine pH 6.0 5.0-9.0 Urine Specific [place] 1.030 1.001-1.035 Urine Protein Trace H Negative Urine Ketones Negative Negative Urine Blood Negative Negative /uL Urine Nitrite Negative Negative Urine Bilirubin Negative Negative Urine Urobilinogen Normal Negative mg/dL Urine Leukocyte Esterase 1+ Negative /uL Urine RBC 4 0 - 4 /hpf Urine Microscopic WBC 3 0-5 /HPF Urine Squamous Epithelial Cells Mod <5 /hpf Urine Bacteria None seen None Seen /hpf Urine Hyaline Casts Few 0 - 2 /lpf Urine Mucus Few None Seen Urine Glucose Normal Normal mg/dL Urine Opiates Screen Neg NEGATIVE Urine Fentanyl Screen Neg NEGATIVE Urine Barbiturates Screen Neg NEGATIVE Urine Phencyclidine Screen Neg NEGATIVE Urine Amphetamines Screen Pos NEGATIVE Urine Benzodiazepines Screen Neg NEGATIVE Urine Cocaine Screen Neg NEGATIVE Urine Cannabinoids Screen Neg NEGATIVE Time of 1ST Reevaluation: 06:45 Reevaluation 1ST: Unchanged Patient Education/Counseling: Diagnosis, Treatment Family Education/Counseling: No Family Present Departure 1 Departure Time of Disposition: 17:02 (Patient is now clinically sober. We will discharge patient home with outpatient follow up) Impression: Primary Impression: Polysubstance abuse Disposition: 01 HOME / SELF CARE / HOMELESS Condition: Stable Additional Instructions: Do not use drugs. There are resources to help you quit. You can call: [phone] ([phone]) If your symptoms worsen or you have any other concerns please return to the emergency room. Critical Care Note Critical Care Time?: No Stability Stability form required: No Heart Score Heart Score: Heart Score Response (Comments) Value History N/A 0 EKG N/A 0 Age N/A 0 Risk Factors N/A 0 Troponin N/A 0 Total 0 I personally scribed for GENARO ASHLEY MD ([email or web address]) on 11/30/24 at 06:54. Electronically submitted by Jennifer Mauro ([email or web address]). I personally scribed for GENARO ASHLEY MD ([email or web address]) on 11/30/24 at 07:38. Electronically submitted by Jennifer Mauro ([email or web address]). GENARO ASHLEY MD Nov 30, 2024 06:54
[2024-11-30 10:39] VITALS: BP 117/88; PULSE 76; RESP 16; TEMP 98.1; O2SAT 94
[2024-11-30 11:02] LABS: Urine Bacteria None Seen /hpf (None Seen)
[2024-11-30 11:14] LABS: Urine Blood Negative /uL (Negative); Urine Clarity Turbid (Clear); Urine Color Yellow (Yellow); Urine Hyaline Cast FEW /lpf (0 - 2); Urine Mucus FEW (None Seen); Urine Protein, UAD TRACE (Negative); Urine Squamous Epithelial Cell MOD /hpf (<5); Urine Urobilinogen Normal (Negative); Urine WBC 3 /HPF (0-5)
[2024-11-30 11:21] LABS: Amphetamine Screen, Urine Pos (NEGATIVE); Barbiturate Scree,Urine Neg (NEGATIVE); Benzodiazephine Screen, Urine Neg (NEGATIVE); Cannabinoid Screen, Urine Neg (NEGATIVE); Cocaine Screen, Urine Neg (NEGATIVE); Opiate Scree,Urine Neg (NEGATIVE); Phencyclidine Screen, Urine Neg (NEGATIVE)
[2024-11-30 11:40] LABS: Basophils # (auto) 0 10 ^3/uL (0-0.2); Basophils % (auto) 0.6 % (0.0-2.0); Eosinophils # (auto) 0.1 10 ^3/uL (0-0.8); Hematocrit 38.5 % (36.0-46.0); Lymphocytes # (auto) 2.2 10 ^3/uL (0.4-5.4); Lymphocytes % (auto) 30.8 % (10.0-50.0); Mean Corpuscular Hgb Conc. 33.8 g/dL (32.0-36.0); Mean Corpuscular Volume 91.5 fL (80.0-100.0); Monocytes # (auto) 0.3 10 ^3/uL (0-1.3); Monocytes % (auto) 4.7 % (0.0-12.0); Neutrophils # (auto) 4.5 10 ^3/uL (1.6-8.6); Neutrophils % (auto) 62.9 % (37.0-80.0); Nucleated Red Blood Cells % 0.1 %; Platelet Count (auto) 263 10^3/uL (140-450); Red Cell Distribution Width 14.8 % (11.8-14.3); White Blood Cell 7.2 10^3/uL (4.4-10.8)
[2024-11-30 11:46] LABS: Chloride 106 mmol/L (98-107); Potassium 3.6 mmol/L (3.5-5.1); Sodium 143 mmol/L (136-145)
[2024-11-30 11:47] LABS: Anion Gap 9 (5-15); Calcium 10.3 mg/dL (8.7-10.4); Carbon Dioxide 28 mmol/L (20-31)
[2024-11-30 11:52] LABS: BUN/Creatinine Ratio 8.6 (10.0-20.0); Glucose 82 mg/dL (74-106)
[2024-11-30 11:54] LABS: Blood Alcohol < 3.0 mg/dL (<10); Blood Urea Nitrogen 8 mg/dL (9-23)
[2024-11-30 12:00] LABS: Acetaminophen < 2.0 UG/ML (10.0-20.0); Salicylate < 3.0 mg/dL (-30)
--- NOTE | 2024-11-30 17:19 | DVHINCON2 ---
Date of Service if different f: Nov 30, 2024 Time of Service: 17:17 Consultation ([place]) Labs Laboratory Tests Test 11/30/24 10:59 11/30/24 11:25 Urine Color Yellow (Yellow) Urine Clarity Turbid (Clear) Urine pH 6.0 (5.0-9.0) Urine Specific [place] 1.030 (1.001-1.035) Urine Protein Trace (Negative) Urine Ketones Negative (Negative) Urine Blood Negative /uL (Negative) Urine Nitrite Negative (Negative) Urine Bilirubin Negative (Negative) Urine Urobilinogen Normal mg/dL (Negative) Urine Leukocyte Esterase 1+ /uL (Negative) Urine RBC 4 /hpf (0 - 4) Urine Microscopic WBC 3 /HPF (0-5) Urine Squamous Epithelial Cells Mod /hpf (<5) Urine Bacteria None seen /hpf (None Seen) Urine Hyaline Casts Few /lpf (0 - 2) Urine Mucus Few (None Seen) Urine Glucose Normal mg/dL (Normal) Urine Opiates Screen Neg (NEGATIVE) Urine Fentanyl Screen Neg (NEGATIVE) Urine Barbiturates Screen Neg (NEGATIVE) Urine Phencyclidine Screen Neg (NEGATIVE) Urine Amphetamines Screen Pos (NEGATIVE) Urine Benzodiazepines Screen Neg (NEGATIVE) Urine Cocaine Screen Neg (NEGATIVE) Urine Cannabinoids Screen Neg (NEGATIVE) White Blood Count 7.2 10^3/uL (4.4-10.8) Red Blood Count 4.20 10^6/uL (4.0-5.20) Hemoglobin 13.0 g/dL (12.2-16.2) Hematocrit 38.5 % (36.0-46.0) Mean Corpuscular Volume 91.5 fL (80.0-100.0) Mean Corpuscular Hemoglobin 31.0 pg (28.0-32.0) Mean Corpuscular Hemoglobin Concent 33.8 g/dL (32.0-36.0) Red Cell Distribution Width 14.8 % (11.8-14.3) Platelet Count 263 10^3/uL (140-450) Mean Platelet Volume 8.3 fL (6.9-10.8) Neutrophils (%) (Auto) 62.9 % (37.0-80.0) Lymphocytes (%) (Auto) 30.8 % (10.0-50.0) Monocytes (%) (Auto) 4.7 % (0.0-12.0) Eosinophils (%) (Auto) 1.0 % (0.0-7.0) Basophils (%) (Auto) 0.6 % (0.0-2.0) Neutrophils # (Auto) 4.5 10 ^3/uL (1.6-8.6) Lymphocytes # (Auto) 2.2 10 ^3/uL (0.4-5.4) Monocytes # (Auto) 0.3 10 ^3/uL (0-1.3) Eosinophils # (Auto) 0.1 10 ^3/uL (0-0.8) Basophils # (Auto) 0 10 ^3/uL (0-0.2) Nucleated Red Blood Cells 0.1 % Sodium Level 143 mmol/L (136-145) Potassium Level 3.6 mmol/L (3.5-5.1) Chloride Level 106 mmol/L (98-107) Carbon Dioxide Level 28 mmol/L (20-31) Anion Gap 9 (5-15) Blood Urea Nitrogen 8 mg/dL (9-23) Creatinine 0.93 mg/dL (0.550-1.02) Glomerular Filtration Rate Calc 84 mL/min (>90) BUN/Creatinine Ratio 8.6 (10.0-20.0) Serum Glucose 82 mg/dL (74-106) Calcium Level 10.3 mg/dL (8.7-10.4) Salicylates Level < 3.0 mg/dL (-30) Acetaminophen Level < 2.0 UG/ML (10.0-20.0) Plasma/Serum Blood Alcohol < 3.0 mg/dL (<10) Vitals Vital Signs Date Time Temp Pulse Resp B/P (MAP) Pulse Ox O2 Delivery O2 Flow Rate FiO2 11/30/24 10:39 Room Air* 0 21 11/30/24 10:39 98.1 76 16 117/88 (98) 94 98.1 PSYCHIATRY CONSULT NOTE Author called to fulfill consult, was informed that Tele-Psych consult no longer indicated, that pt is being discharged. Attempted to confirm with RN, but they did not come to the line. Alerted call center to communicate with [facility] to confirm, and re-page need be. BRENNON PUTNAM MD Nov 30, 2024 17:19
== END 2024-11-30 18:27 | disposition home or self-care (01) ==
LOC: ER 03:52
DX: F19.10 Other psychoactive substance abuse, uncomplicated (principal); F12.90 Cannabis use, unspecified, uncomplicated; F17.210 Nicotine dependence, cigarettes, uncomplicated; F10.90 Alcohol use, unspecified, uncomplicated; F20.9 Schizophrenia, unspecified; F41.9 Anxiety disorder, unspecified; F32.A Depression, unspecified; Z59.00 Homelessness unspecified; Y90.9 Presence of alcohol in blood, level not specified
CPT/HCPCS: 36415; 80048; 80307; 80320; 80329; 81001; 85025

== ENCOUNTER 2025-01-04 22:24 | Emergency (ER) | payer MEDICAID ==
[~2025-01-04] VITALS: Ht 165.1 cm; Wt 84.0 kg
--- NOTE | 2025-01-04 22:41 | ED.PDOC ---
Psychiatric HPI Comments 34 year old female presents to the ED via EMS with a chief complaint of suicidal ideation. Per EMS, patient was behind [place], S.O was on scene, called EMS due to patient experiencing shortness of breath. Patient told EMS she had Methamphetamine earlier today. Upon ED arrival, patient stated she is suicidal. Patient is a poor historian, has been seen in this ED several times for similar symptoms. PMHx Schizophrenia, depression, anxiety. No other symptoms or modifying factors present at this time. Time Seen by MD: 22:35 Primary Care Provider: UNKNOWN Reviewed Notes: Medications, Allergies Information Source: Patient, Emergency Med Personnel Mode of Arrival: EMS Severity of Mental Status: Moderate Severity of Symptoms: Moderate Timing: Hours Duration: Since onset Prehospital treatment: None Presents with: Suicidal Ideation Ingestion: None Circumstance: None Current substance abuse: Other History of: Depression, Anxiety, Schizophrenia Quality: None Vital Signs Vital Signs Date Time Temp Pulse Resp B/P (MAP) Pulse Ox O2 Delivery O2 Flow Rate FiO2 01/05/25 05:42 Room Air* 0 21 01/04/25 22:49 98.2 77 14 105/66 (79) 99 98.2 Physical Exam PHYSICAL EXAM: General: Awake, alert No acute distress. Patient appears disheveled Skin: Skin in warm, dry and intact without rashes or lesions. HEENT: The head is normocephalic and atraumatic. Conjunctivae are clear without exudates or hemorrhage. Sclera is non-icteric. Neck: Normal range of motion. No JVD. Cardiac: Regular rate Respiratory: No signs of respiratory distress. No Stridor. Extremities: Upper and lower extremities are atraumatic in appearance without deformity. Neurological: The patient is awake, alert .There is no facial asymmetry. 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 Was a procedure done?: No Psych Differential Dx Psych. Differential Dx: Anxiety, Bipolar Disorder, Depression, Schizoprenia, Suicidal OD Differential Dx: Alcohol Abuse, Schizophrenia, Substance Abuse X-Ray, Labs, Meds, VS Vital Signs Date Time Temp Pulse Resp B/P (MAP) Pulse Ox O2 Delivery O2 Flow Rate FiO2 01/05/25 05:42 Room Air* 0 21 01/04/25 22:49 98.2 77 14 105/66 (79) 99 98.2 Lab Test 01/04/25 22:48 Range/Units White Blood Count 10.6 4.4-10.8 10^3/uL Red Blood Count 4.17 4.0-5.20 10^6/uL Hemoglobin 12.5 12.2-16.2 g/dL Hematocrit 38.4 36.0-46.0 % Mean Corpuscular Volume 92.2 80.0-100.0 fL Mean Corpuscular Hemoglobin 30.0 28.0-32.0 pg Mean Corpuscular Hemoglobin Concent 32.5 32.0-36.0 g/dL Red Cell Distribution Width 14.9 H 11.8-14.3 % Platelet Count 310 140-450 10^3/uL Mean Platelet Volume 8.1 6.9-10.8 fL Neutrophils (%) (Auto) 56.4 37.0-80.0 % Lymphocytes (%) (Auto) 34.5 10.0-50.0 % Monocytes (%) (Auto) 6.8 0.0-12.0 % Eosinophils (%) (Auto) 1.5 0.0-7.0 % Basophils (%) (Auto) 0.8 0.0-2.0 % Neutrophils # (Auto) 6.0 1.6-8.6 10 ^3/uL Lymphocytes # (Auto) 3.6 0.4-5.4 10 ^3/uL Monocytes # (Auto) 0.7 0-1.3 10 ^3/uL Eosinophils # (Auto) 0.2 0-0.8 10 ^3/uL Basophils # (Auto) 0.1 0-0.2 10 ^3/uL Nucleated Red Blood Cells 0.1 % Sodium Level 141 136-145 mmol/L Potassium Level 3.3 L 3.5-5.1 mmol/L Chloride Level 108 H 98-107 mmol/L Carbon Dioxide Level 23 20-31 mmol/L Anion Gap 10 5-15 Blood Urea Nitrogen 10 9-23 mg/dL Creatinine 0.88 0.550-1.02 mg/dL Glomerular Filtration Rate Calc 89 >90 mL/min BUN/Creatinine Ratio 11.4 10.0-20.0 Serum Glucose 80 74-106 mg/dL Calcium Level 9.2 8.7-10.4 mg/dL Plasma/Serum Blood Alcohol < 3.0 <10 mg/dL Time of 1ST Reevaluation: 23:05 Reevaluation 1ST: Unchanged Time of 2ND Reevaluation: 01:50 Reevaluation 2ND: Patient medically cleared Patient Education/Counseling: Need For Follow Up Family Education/Counseling: No Family Present Change of Shift?: Yes (Signed out to Dr. Dennison 01/06/25 @0600) Critical Care Note Critical Care Time?: No Stability Stability form required: No I personally scribed for ANURADHA THAKKAR MD ([email or web address]) on 01/04/25 at 22:41. Electronically submitted by Lisa Hernandez ([email or web address]). ANURADHA THAKKAR MD Jan 04, 2025 22:41
[2025-01-04 23:00] LABS: Hematocrit 38.4 % (36.0-46.0); Hemoglobin 12.5 g/dL (12.2-16.2); Mean Corpuscular Hemoglobin 30.0 pg (28.0-32.0); Mean Corpuscular Volume 92.2 fL (80.0-100.0); Nucleated Red Blood Cells % 0.1 %
[2025-01-04 23:10] LABS: Sodium 141 mmol/L (136-145)
[2025-01-04 23:11] LABS: Anion Gap 10 (5-15); Calcium 9.2 mg/dL (8.7-10.4); Carbon Dioxide 23 mmol/L (20-31)
[2025-01-04 23:16] LABS: BUN/Creatinine Ratio 11.4 (10.0-20.0); Blood Urea Nitrogen 10 mg/dL (9-23); Chloride 108 mmol/L (98-107); Glucose 80 mg/dL (74-106); Potassium 3.3 mmol/L (3.5-5.1)
[2025-01-05] MEDS: POTASSIUM CHL 20 Meq TABLET PO ONE (02:00)
--- NOTE | 2025-01-05 06:09 | DVHINCON2 ---
Date of Service if different f: Jan 05, 2025 Time of Service: 06:08 Consult Consult Note PSYCHIATRY ED NEW CONSULT HPI: 34 yo pt with PPH of schizophrenia and severe PSA presents to ED BIBA for safety, psychiatric stabilization and possible med initiation in setting of homelessness, med noncompliance, ongoing meth use, psychosis, and passive SI. Psychiatry consulted for safety evaluation and recommendations in context of current presentation. Of note, pt of questionable/poor historian with freq ED visits with similar CC/presentation in setting of homelessness and ongoing substance/meth use Pt reports ongoing NC/NT AH, irritability, disorganized speech, RTIS with some baseline though disorder in setting of untreated schizophrenia and ongoing meth use . Also reports SI with no plan/intent - "i am just tired of living" Pt currently does not have psychiatrist/therapist out in community. Currently rx'd olanzapine 7.5 mg bid, with some hx of med noncompliance, last took med several weeks ago Continues to self medicating mood symptoms with daily meth, thc and fentanyl use including IVDU, last used meth prior to admission, long hx of meth and THC dependence Never , two children who live with her parents, unemployed, currently/chronically homeless, limited support system noted. Unknown trauma hx. Unknown FH No acute medical issues, NKDA Does have remote hx of suicide attempts via drug OD resulting in prior psych hospitalizations including recent hospitalization for drug induced psychosis/SI. Some history of unprovoked aggression, anger outbursts, emotional dysregulation, mood reactivity in context of meth intoxication. Does not have access to firearms MSE: General Appearance/Behavior: Alert and partially awake; appears bit older than stated age, motor restlessness, marginally fair/poor grooming and hygiene; calm and cooperative, intermittent eye contact Speech: bit slurred and incomprehensible at times Thought Process: impoverished, concrete, bit impaired/tangential Thought Content: Abnormal Thoughts and Perceptions: RTIS Homicidality / Violent Thoughts: None Suicidality: + SI Hallucinations: None during assessment Delusions: some paranoia delusions Obsessions /compulsions : None Judgment and Insight: marginally fair/poor/limited Mood & Affect: "okay" with mood-congruent, appropriate Orientation: oriented to person, place only Attention/Concentration: somewhat impaired Memory: grossly intact Assessment: 34 yo F pt with PPH of schizophrenia and severe PSA presents to ED BIBA for safety, psychiatric stabilization and possible med initiation/optimization in setting of homelessness, med noncompliance, ongoing meth use, passive SI, and psychosis. Of note, pt of questionable historian with freq ED visits with similar CC/presentation in setting of homelessness and ongoing meth use Pt chronically homeless and is unable to care for self with poor/limited insight and judgement. Also expressing SI with no plan Also not compliant on Olanzapine with ongoing severe meth use resulting in multiple ED admissions. No outpt MH services at present Hence, pt is appropriate for inpatient psychiatric admission for safety, psychiatric stabilization, and possible medication initiation/optimization. Pt willing to transfer to inpt psych facility voluntarily but recommend 5150 DTS/GD hold Primary Diagnosis: Schizophrenia unspecified. Meth use d/o, moderate/severe Recommend 5150 DTS/GD and transfer to inpt psych facility for higher level of care per pts request 1:1 sitter is recommended Recommend continuation of current outpt med regimen - olanzapine 7.5 mg bid - f irst dose now Risks/benefits/alternative treatments discussed, informed consent provided by pt Reconsult telepsych services if pt requests to be discharged from ED prior to transfer/upon hold expiration Pt verbalized understanding and is receptive to above tx plan This case was discussed with ED nurse/provider and all parties in agreement with above tx plan Floyd Funk MD Plan discussed with: Patient FLOYD FUNK MD Jan 05, 2025 06:09
[2025-01-06 09:15] VITALS: BP 94/52; PULSE 74; RESP 14; TEMP 98.7; O2SAT 98
== END 2025-01-06 09:30 | disposition short-term general hospital (02) ==
LOC: EDBD 22:24 → ER 22:24
DX: R45.851 Suicidal ideations (principal); F20.9 Schizophrenia, unspecified; F17.210 Nicotine dependence, cigarettes, uncomplicated; F41.9 Anxiety disorder, unspecified; F32.A Depression, unspecified
CPT/HCPCS: 36415; 80048; 80320; 85025

== ENCOUNTER 2025-05-12 21:50 | Emergency (ER) | payer MEDICAID ==
[~2025-05-12] VITALS: Ht 172.7 cm; Wt 68.0 kg
[2025-05-12 22:40] LABS: Hematocrit 39.2 % (36.0-46.0); Hemoglobin 12.4 g/dL (12.2-16.2); Mean Corpuscular Hemoglobin 29.1 pg (28.0-32.0); Mean Corpuscular Volume 92.2 fL (80.0-100.0); Nucleated Red Blood Cells % 0.1 %
[2025-05-12 23:18] LABS: Alanine Aminotransferase 14 U/L (7-40); Albumin 4.3 g/dL (3.2-4.8); Alkaline Phosphatase 55 U/L (46-116); Anion Gap 12 (5-15); BUN/Creatinine Ratio 11.0 (10.0-20.0); Bilirubin, Total 0.7 mg/dL (0.2-1.0); Blood Urea Nitrogen 9 mg/dL (9-23); Calcium 9.7 mg/dL (8.7-10.4); Carbon Dioxide 22 mmol/L (20-31); Chloride 105 mmol/L (98-107); Glucose 91 mg/dL (74-106); Lipase 34 U/L (12-53); Magnesium 2.0 mg/dL (1.6-2.6); Potassium 3.8 mmol/L (3.5-5.1); Sodium 139 mmol/L (136-145); Total Protein 7.4 g/dL (5.7-8.2)
--- NOTE | 2025-05-12 23:42 | ED.PDOC ---
Psychiatric HPI Comments HPI: Poor Historian. 35-year-old female brought in by ambulance. Patient is homeless. Patient is known to the emergency department with a history of polysubstance abuse and methamphetamine abuse. Most recently she had used methamphetamine earlier today. She went to another hospital in [facility] and she was discharged from there. Patient states she is here because she is having suicidal ideation and hallucinations. Patient does not take any psych medications. Patient denies any abdominal pain nausea or vomiting contrary it with triage notes suggests. Past Medical History: Polysubstance abuse, methamphetamine abuse, anxiety, suicidal behavior, hallucination, marijuana abuse, toxic encephalopathy, bipolar disorder, schizophrenia, homelessness, chronic psychosis Past Surgical History: REVIEW OF SYSTEMS: CONSTITUTIONAL: Denies acute: fever, diaphoresis, chills, generalized weakness. HEAD: Denies acute: headache, photophobia Eyes: Denies acute: Double vision, vision loss, eye pain, eye discharge. EARS: Denies acute: tinnitus, hearing loss, ear discharge, ear pain, THROAT: Denies acute: sore throat, swelling, difficulty swallowing , pain with swallowing, change in voice. NECK: Denies acute: neck pain, neck swelling, stiff neck. HEART: Denies acute : chest pain, palpitations, LUNGS: Denies acute: SOB, wheezing, cough, hemoptysis ABDOMEN: Denies acute: abdominal pain, Nausea, Vomiting, diarrhea, melena , hematemesis, hematochezia SKIN: Denies acute: rash, redness, lesions, itchiness. EXTREMITIES: Denies acute: calf pain, numbness, tingling, weakness, denies pain in extremity. Denies acute: Low back pain. Neuro: Denies acute: focal neurological deficit, motor or sensory focal neurological deficit, tremors, seizure like activity, confusion, dizziness, change in mental status, loss of bowel or bladder function, cauda equina like symptoms. : Denies acute: dysuria, hematuria, flank pain, increase in urinary frequency. PSYCH: Denies acute: , ideation, homicidal ideation. FEMALE: Denies acute: abnormal vaginal bleeding, foul odor, unusual discharge. PHYSICAL EXAM: General: ----no----acute distress, awake and alert. Appears under the influence of methamphetamine. Foul odor and poor hygiene. Head: normocephalic, atraumatic. No raccoon's eyes, no ricardo sign. Neck: supple, trachea is midline, no swelling. Throat: Normal phonation. Poor dentition Eyes:, no erythema, no purulent discharge, no proptosis, no icterus. Heart: regular rate, regular rhythm, no significant murmur appreciated. Lungs: no apparent respiratory distress, Able to speak in full sentences. No wheezing, no rhonchi, no crackles. No stridors Clear to auscultation bilaterally. Abdomen: non tender to palpation, non distended, soft, no guarding, no rebound, + bowel sounds. Neuro: Awake, Alert, oriented to name, self, situation, follows commands Speech is normal. Skin: no petechia, no purpura, no cyanosis, non-pale, not jaundice. Lower extremities: --no - Pitting edema no deformity, no focal swelling, no calf TTP. Makes eye contact. moves all four extremities. Face: no apparent facial droop. Ambulating in the ED independently. ED COURSE: DISCLAIMER: This medical document was created using an electronic medical record system with voice recognition software and computerized dictation system. Although this document has been carefully reviewed, there might still be some phonetic and typographical errors. Occasional wrong-word or "sound-alike" substitutions may have occurred due to the inherent limitations of voice recognition software. These areas are purely typographical due to imperfections of the software [employer] and do not reflect any compromise in the patient's medical care. Please read the chart carefully and recognize, using context, where these substitutions have occurred. 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 Was a procedure done?: No Psych Differential Dx Psych. Differential Dx: Anxiety, Bipolar Disorder, Depression, Hopeless, No symptoms Reported, Panic Disorder, Schizoprenia, Sleepless, Suicidal Suicidal Differential Dx: Alcohol Abuse, Anxiety, Bipolar Disorder, Conversion Disorder, Depression, Homicidal, Laceration, Panic Disorder, Personality Disorder, Schizoprenia, Substance Abuse X-Ray, Labs, Meds, VS Vital Signs Date Time Temp Pulse Resp B/P (MAP) Pulse Ox O2 Delivery O2 Flow Rate FiO2 05/12/25 21:50 97.5 96 20 97 97.5 Lab Test 05/12/25 22:27 Range/Units White Blood Count 7.4 4.4-10.8 10^3/uL Red Blood Count 4.25 4.0-5.20 10^6/uL Hemoglobin 12.4 12.2-16.2 g/dL Hematocrit 39.2 36.0-46.0 % Mean Corpuscular Volume 92.2 80.0-100.0 fL Mean Corpuscular Hemoglobin 29.1 28.0-32.0 pg Mean Corpuscular Hemoglobin Concent 31.6 L 32.0-36.0 g/dL Red Cell Distribution Width 16.2 H 11.8-14.3 % Platelet Count 274 140-450 10^3/uL Mean Platelet Volume 7.9 6.9-10.8 fL Neutrophils (%) (Auto) 49.4 37.0-80.0 % Lymphocytes (%) (Auto) 41.3 10.0-50.0 % Monocytes (%) (Auto) 7.9 0.0-12.0 % Eosinophils (%) (Auto) 0.8 0.0-7.0 % Basophils (%) (Auto) 0.6 0.0-2.0 % Neutrophils # (Auto) 3.6 1.6-8.6 10 ^3/uL Lymphocytes # (Auto) 3.0 0.4-5.4 10 ^3/uL Monocytes # (Auto) 0.6 0-1.3 10 ^3/uL Eosinophils # (Auto) 0.1 0-0.8 10 ^3/uL Basophils # (Auto) 0 0-0.2 10 ^3/uL Nucleated Red Blood Cells 0.1 % Sodium Level 139 136-145 mmol/L Potassium Level 3.8 3.5-5.1 mmol/L Chloride Level 105 98-107 mmol/L Carbon Dioxide Level 22 20-31 mmol/L Anion Gap 12 5-15 Blood Urea Nitrogen 9 9-23 mg/dL Creatinine 0.82 0.550-1.02 mg/dL Glomerular Filtration Rate Calc 97 >90 mL/min BUN/Creatinine Ratio 11.0 10.0-20.0 Serum Glucose 91 74-106 mg/dL Lactic Acid Level 1.8 0.4-2.0 mmol/L Calcium Level 9.7 8.7-10.4 mg/dL Magnesium Level 2.0 1.6-2.6 mg/dL Total Bilirubin 0.7 0.2-1.0 mg/dL Aspartate Amino Transferase (AST) 28 13-40 U/L Alanine Aminotransferase (ALT) 14 7-40 U/L Alkaline Phosphatase 55 46-116 U/L Troponin I High Sensitivity < 3 L </=34 ng/L Total Protein 7.4 5.7-8.2 g/dL Albumin 4.3 3.2-4.8 g/dL Lipase 34 12-53 U/L Time of 1ST Reevaluation: 01:06 Reevaluation 1ST: Unchanged Patient Education/Counseling: Diagnosis, Treatment Family Education/Counseling: Other Assigned to Dr. Dr. Gardner. Comments MDM: patient presented with the above HPI.--suicidal ideation/polysubstance abuse----workup was initiated. patient was found with the above mentioned diagnosis. the following medications were ordered: please refer to order lists of meds and tests obtained by myself Dr. Aguilar. Patient ED course and VS have been stabilized. Patient has been reassessed in the ED and remained in a stable condition. Pertinent incidental findings were discussed with the patient and/or family. Patient/family voices understanding and is agreeable with plan. Patient has been observed in the ED adequate length of time to insure improvement/stability. Escalation of care considered: Consideration of escalation to observation or admission The care of this patient was transitioned to my colleague Dr. Gardner. Patient is awaiting her urinalysis, drug screen and test and psychiatric evaluation. All the reports of any imaging studies that were ordered by myself were reviewed by myself. Departure 1 Departure Time of Disposition: 01:05 Impression: Primary Impression: Suicidal ideation Additional Impressions: Polysubstance abuse Homelessness Noncompliance with medication regimen Patient needs psychiatric hold for evaluation Disposition: 30 STILL A PATIENT Condition: Guarded Discharged With: Self Critical Care Note Critical Care Time?: No DEIRDRE AGUILAR DO May 12, 2025 23:42
[2025-05-13 01:30] LABS: Urine Protein, UAD Negative (Negative)
[2025-05-13 01:38] LABS: Cannabinoid Screen, Urine Neg (NEGATIVE)
[2025-05-13 02:03] LABS: Amphetamine Screen, Urine Pos (NEGATIVE); Barbiturate Scree,Urine Neg (NEGATIVE); Benzodiazephine Screen, Urine Neg (NEGATIVE); Cocaine Screen, Urine Neg (NEGATIVE); Opiate Scree,Urine Neg (NEGATIVE); Phencyclidine Screen, Urine Neg (NEGATIVE)
--- NOTE | 2025-05-13 02:50 | DVHINCON2 ---
Date of Service if different f: May 13, 2025 Time of Service: 02:49 Consult Consult Note PSYCHIATRY ED NEW CONSULT HPI: 35 yo pt with PPH of schizophrenia and severe PSA presents to ED BIBA for safety, psychiatric stabilization and possible med initiation in setting of homelessness, med noncompliance, ongoing meth use, psychosis, and passive SI. Psychiatry consulted for safety evaluation and recommendations in context of current presentation. Of note, pt questionable/poor historian with freq ED visits with similar CC/presentation in setting of homelessness and ongoing substance/meth use Pt reports ongoing NC/NT AH, irritability, disorganized speech, RTIS with some baseline though disorder in setting of untreated schizophrenia and ongoing meth use. Also reports SI with no plan/intent - "i am just tired of living" Pt currently does not have psychiatrist/therapist out in community. Currently rx'd olanzapine 7.5 mg bid, with some hx of med noncompliance, unknown last use Continues to self medicating mood symptoms with daily meth, thc and fentanyl use including IVDU, last used meth prior to admission, long hx of meth and THC dependence Never , two children who live with her parents, unemployed, currently/chronically homeless, limited support system noted. Unknown trauma hx. Unknown FH No acute medical issues, NKDA Does have remote hx of suicide attempts via drug OD resulting in prior psych hospitalizations including recent hospitalization for drug induced psychosis/SI. Some history of unprovoked aggression, anger outbursts, emotional dysregulation, mood reactivity in context of meth intoxication. Does not have access to firearms MSE: General Appearance/Behavior: Alert and partially awake; appears bit older than stated age, motor restlessness, marginally fair/poor grooming and hygiene; calm and cooperative, intermittent eye contact Speech: bit slurred and incomprehensible at times Thought Process: impoverished, concrete, bit impaired/tangential Thought Content: Abnormal Thoughts and Perceptions: RTIS Homicidality / Violent Thoughts: None Suicidality: + SI Hallucinations: None during assessment Delusions: some paranoia delusions Obsessions /compulsions : None Judgment and Insight: marginally fair/poor/limited Mood & Affect: "suicidal" with mood-congruent, appropriate Orientation: oriented to person, place only Attention/Concentration: somewhat impaired Memory: grossly intact Assessment: 35 yo F pt with PPH of schizophrenia and severe PSA presents to ED BIBA for safety, psychiatric stabilization and possible med initiation/optimization in setting of homelessness, med noncompliance, ongoing meth use, passive SI, and psychosis. Of note, pt of questionable/poor historian with freq ED visits with similar CC/presentation in setting of homelessness, med NC, and ongoing meth use Pt chronically homeless and is unable to care for self with poor/limited insight and judgement. Also expressing SI with no plan Also not compliant on Olanzapine with ongoing severe meth use resulting in multiple ED admissions. No outpt services at present Pt appropriate for inpatient psychiatric admission for safety, psychiatric stabilization, and possible medication initiation/optimization. Pt willing to transfer to inpt psych facility voluntarily but recommend 5150 DTS/GD hold Primary Diagnosis: Schizophrenia unspecified. Meth use d/o, moderate/severe Recommend 5150 DTS/GD and transfer to inpt psych facility for higher level of care 1:1 sitter is recommended Recommend restart olanzapine 7.5 mg bid - first dose in AM Risks/benefits/alternative treatments discussed, informed consent provided by pt Reconsult telepsych services if pt requests to be discharged from ED prior to transfer/upon hold expiration Pt verbalized understanding and is receptive to above tx plan This case was discussed with ED nurse/provider and all parties in agreement with above tx plan Floyd Funk MD Plan discussed with: Patient FLOYD FUNK MD May 13, 2025 02:50
[2025-05-13 13:24] VITALS: BP 109/65; PULSE 68; RESP 16; TEMP 98.2; O2SAT 98
== END 2025-05-13 13:36 | disposition short-term general hospital (02) ==
LOC: EDBD 21:50 → ER 21:50
DX: R45.851 Suicidal ideations (principal); F31.9 Bipolar disorder, unspecified; F20.9 Schizophrenia, unspecified; F19.11 Other psychoactive substance abuse, in remission; F17.210 Nicotine dependence, cigarettes, uncomplicated; F15.90 Other stimulant use, unspecified, uncomplicated; R79.0 Abnormal level of blood mineral
CPT/HCPCS: 36415; 80053; 80307; 81001; 81025; 83605; 83690; 83735; 84484; 85025

== ENCOUNTER 2025-05-26 20:37 | Emergency (ER) | payer MEDICAID ==
[~2025-05-26] VITALS: Ht 167.6 cm; Wt 68.1 kg
--- NOTE | 2025-05-26 21:19 | ED.PDOC ---
History of Present Illness HPI Comments Patient is a 35-year-old female with past medical history of schizophrenia, polysubstance abuse, medical noncompliance, recurrent ER visits due to methamphetamine abuse related psychosis, who was brought in by EMS. According to the EMS personnel, patient was initially reporting epigastric discomfort which is what prompted 911 call, en route 12 lead EKG was unremarkable, blood pressure 150/70, heart rate in the 90s and saturating 97% on room air. Upon arrival to the emergency department patient is denying any specific acute bodily complaints. Denying any current abdominal discomfort. Admits to continued methamphetamine use. Chief Complaint: ALOC Time Seen by MD: 20:55 Primary Care Provider: UNKNOWN Reviewed Notes: Customer Service Representative Notes Allergies: Coded Allergies: Amphetamines (Verified Allergy, Unknown, 11/18/24) Home Meds Active Scripts Ibuprofen Micronized (Ibuprofen) 600 Mg Tab, 600 MG PO Q6HP PRN, #30 TAB prn pain, take with food Prov:EDUARDO MEDEROS MD 08/23/24 Cephalexin Monohydrate (Cephalexin) 500 Mg Cap, 1 CAP PO QID for 10 Days, #40 CAP Prov:EDUARDO MEDEROS MD 08/23/24 Metronidazole Vaginal (METROGEL VAGINAL) 1 Applic Ap, 1 APPLIC VG QPM for 5 Days, #70 GRAMS 0 Refills Prov:JUAN LEONARDO CRYSTAL CALIBRATOR 12/21/23 Naproxen (Naproxen) 500 Mg Tab, 500 MG PO BID, #20 TAB Prov:CYNDIE DAS 08/21/23 Clindamycin Hcl (Clindamycin Hcl) 300 Mg Cap, 1 CAP PO TID, #30 CAP Prov:CYNDIE DAS 08/21/23 Benzonatate (Benzonatate) 100 Mg Cap, 100 MG PO TID for 10 Days, #30 CAP 0 Refills Prov:JUAN LEONARDO NP 08/20/23 Amoxicillin & Pot Clavulanate (AUGMENTIN TABLET) 875 Mg Tb, 875 MG PO BID for 7 Days, #14 TAB 0 Refills Prov:JUAN LEONARDO NP 08/20/23 Olanzapine (OLANZAPINE) 5 Mg Tab, 5 MG PO BID for 30 Days, #60 TAB Prov:LARRY VERMA MD 01/22/23 Information Source: Patient, Emergency Med Personnel Mode of Arrival: EMS Severity: Mild Timing: Hours Prehospital treatment: 12 Lead EKG Medication Refill: Left Medicine (Noncompliant), For: Psychiatric Past Medical History PAST MEDICAL HISTORY: Anxiety, Depression, Schizophrenia Past Medical History (Contd): Schizophrenia, depression, anxiety, polysubstance abuse Surgical History: Denies all surgeries RN GERIATRIC History: Denies all RN GERIATRIC Hx Family History Family History: Reviewed,noncontributory to illness Social History Smoker: Cigarettes Alcohol: Occasionally Drugs: Marijuana, Methamphetamine Lives In: Homeless Constitutional: denies: chills, diaphoresis, fatigue, fever, malaise, sweats, weakness, others EENTM: denies: blurred vision, double vision, ear bleeding, ear discharge, ear drainage, ear pain, ear ringing, eye pain, eye redness, hearing loss, mouth pain, mouth swelling, nasal discharge, nose bleeding, nose congestion, nose pain, photophobia, tearing, throat pain, throat swelling, voice changes, others Respiratory: denies: cough, hemoptysis, orthopnea, SOB at rest, shortness of breath, SOB with excertion, stridor, wheezing, others Cardiovascular: denies: chest pain, dizzy spells, diaphoresis, Dyspnea on exertion, edema, irregular heart beat, left arm pain, lightheadedness, palpitations, PND, syncope, others Gastrointestinal: denies: abdomen distended, abdominal pain, blood streaked bowels, constipated, diarrhea, dysphagia, difficulty swallowing, hematemesis, melena, nausea, poor appetite, poor fluid intake, rectal bleeding, rectal pain, vomiting, others Genitourinary: denies: abnormal vagina bleeding, burning, dyspareunia, dysuria, flank pain, frequency, hematuria, incontinence, pain, , vagina discharge, urgency, others Neurological: denies: dizziness, fainting, headache, left sided numbness, left sided weakness, numbness, paresthesia, pre-existing deficit, right sided numbness, right sided weakness, seizure, speech problems, tingling, tremors, weakness, others Musculoskeletal: denies: back pain, gout, joint pain, joint swelling, muscle pain, muscle stiffness, neck pain, others Integumetry: denies: bruises, change in color, change in hair/nails, dryness, laceration, lesions, lumps, rash, wounds, others Allergic/Immunocompromised: denies: Difficulty Healing, Frequent Infections, Hives, Itching, others Hematologic/Lymphatic: denies: anemia, blood clots, easy bleeding, easy bruising, swollen glands, others Endocrine: denies: excessive hunger, excessive sweating, excessive thirst, excessive urination, flushing, intolerance to cold, intolerance to heat, unexplained weight gain, unexplained weight loss, others Psychiatric: denies: anxiety, bipolar disorder, depression, hopeless, panic disorder, schizophrenia, sleepless, suicidal, others All Other Systems: Reviewed and Negative Physical Exam General Appearance: No Apparent Distress, Normal, Other (Disheveled appearing, no signs of external trauma) HEENT: Normal ENT Inspection, PERRL/EOMI Neck: Non-Tender, Normal, Normal Inspection Respiratory: No Accessory Muscle Use, No Respiratory Distress, Normal Breath Sounds Cardiovascular: No Murmur, Tachycardia Breast Exam: Deferred Gastrointestinal: Non Tender, Normal Bowel Sounds, Soft Genitalia: Deferred Pelvic: Deferred Rectal: Rectal Exam not done Extremities: No calf tenderness, Normal range of motion, Pedal edema Neurologic: No Motor Deficits, No Sensory Deficits, Speech Problem (Disorganized, Tangential speech) Cerebellar Function: Normal Reflexes: NOT DONE Skin: Bruises, Dry Peripheral Pulses: 2+ dorsalis pedis (R), 2+ dorsalis pedis (L) Lymphatic: NOT DONE Was a procedure done? Was a procedure done?: No Differential Dx Considerations may include: Polysubstance abuse Methamphetamine abuse Acute on chronic psychosis Medication noncompliance X-Ray, Labs, Meds, VS Vital Signs Date Time Temp Pulse Resp B/P (MAP) Pulse Ox O2 Delivery O2 Flow Rate FiO2 05/26/25 20:40 98.1 90 18 157/98 96 98.1 Time of 1ST Reevaluation: 21:20 Reevaluation 1ST: Improved Patient Education/Counseling: Diagnosis, Treatment, Prognosis, Need For Follow Up Family Education/Counseling: No Family Present SEPSIS Sepsis Screen Date sepsis recognized/suspect: May 26, 2025 Time Sepsis recognized/suspect: 2039 Recent Procedure: No On Antibiotic Therapy: No Respiratory Rate >20: No Heart Rate >90: No Temp<36 C (96.8 F) or >38.3 C: No SBP <90 or MAP <65 mmHG: No New Acute Mental Status Change: No Is the patient on CPAP, BIPAP,: No Vital Signs Date Time Temp Pulse Resp B/P (MAP) Pulse Ox O2 Delivery O2 Flow Rate FiO2 05/26/25 20:40 98.1 90 18 157/98 96 98.1 Departure 1 Departure Time of Disposition: 21:30 (35-year-old female with history of schizophrenia and polysubstance abuse very well known to this emergency department for various visits related to various vague complaints. Patient arrives with no critical vital sign abnormalities. Appears to be in no acute distress. Although she was initially reporting epigastric pain to the medics she denies any of this here. Suspect that the patient was likely only stating this so that she can come to the emergency department. Given that she appears to be at her mental baseline related to her polysubstance use and schizophrenia does not require any labs at this time. Was offered a 1 time oral Zyprexa dose. Pt is cooperative without agitation, denies suicidal ideation/homicidal ideation, no acute medical complaints, vital signs stable with temperature 98.1, heart rate 90, respiratory rate 18, blood pressure 157/98 and saturating 96% on room air. No criteria for involuntary hold. Offered something to eat. Patient is stable for discharge. Return precautions reviewed and understood.) Impression: Primary Impression: Methamphetamine abuse Additional Impression: Homelessness Disposition: 01 HOME / SELF CARE / HOMELESS Condition: Stable Critical Care Note Critical Care Time?: No Stability Stability form required: YOBANY Cosby RESIDENT May 26, 2025 21:19 SHAVONNE IBARRA MD May 26, 2025 22:41
[2025-05-26] MEDS: OLANZapine 5 MG TAB PO ONE (22:44)
[2025-05-26 23:02] VITALS: BP 148/77; PULSE 107; RESP 18; TEMP 99.1
[2025-05-26 23:03] VITALS: O2SAT 97
== END 2025-05-26 23:06 | disposition home or self-care (01) ==
LOC: EDBD 20:37 → ER 20:37
DX: F15.10 Other stimulant abuse, uncomplicated (principal); F17.210 Nicotine dependence, cigarettes, uncomplicated; F12.90 Cannabis use, unspecified, uncomplicated; F41.9 Anxiety disorder, unspecified; F32.A Depression, unspecified; F20.9 Schizophrenia, unspecified; Z59.00 Homelessness unspecified; Z79.899 Other long term (current) drug therapy